=== PATIENT | male | born 1955 | race Caucasian/White ===

== ENCOUNTER 2019-12-20 18:53 | Emergency (ER) | payer MEDICARE, SELFPAY ==
--- NOTE | 2019-12-20 | XR_ITS ---
EXAMINATION: XR ABDOMEN KUB CLINICAL INDICATION: Abdominal discomfort COMPARISON: None TECHNIQUE: AP view of the abdomen. FINDINGS: Gas and stool is present in the right and transverse colon, descending colon and rectosigmoid contains very little gas or stool. No dilated small bowel is seen. No unusual calcifications are present. Mild degenerative changes both hips and lower lumbar spine. IMPRESSION: No convincing evidence of bowel obstruction at this time. Very little stool is seen in descending colon or rectosigmoid but proximal dilatation is not seen.
--- NOTE | 2019-12-20 | ECG_ITS ---
Test Reason : SYNCOPE Blood Pressure : / mmHG Vent. Rate : 076 BPM Atrial Rate : 076 BPM P-R Int : 164 ms QRS Dur : 092 ms QT Int : 348 ms P-R-T Axes : 061 036 045 degrees QTc Int : 391 ms Normal sinus rhythm Incomplete right bundle branch block T wave abnormality, consider anterolateral ischemia Abnormal ECG When compared with ECG of 02-JAN-2019 15:36, Nonspecific T wave abnormality now evident in Inferior leads T wave inversion now evident in Anterior leads Referred By: Roberta Aguilar Electronically Signed By:ENEIDA FINLEY
[2019-12-20 20:30] VITALS: BP 138/54; PULSE 78; RESP 16; TEMP 36.5; O2SAT 98; BMI 26.6
--- NOTE | 2019-12-20 21:50 | PC.NURSE ---
MD REYES AT BEDSIDE FOR PRIMARY EVAL.
--- NOTE | 2019-12-20 21:55 | ED.SYNCOPE ---
HPI - Syncope General Chief Complaint: General Medical Stated Complaint: SYNCOPE/CONSTIPATION Time Seen by Provider: 12/20/19 21:52 Source: regional telecommunications specialist ( Sudanese) Limitations: language barrier History of Present Illness HPI narrative: This is a 64-year-old male who is brought in by his CLIENT DELIVERY SPECIALIST with complaints of 4-5 days of constipation and is reported as a chronic problem due to patient's psychiatric medications. He has been treated for this constipation with a unknown liquid as well as diet modifications. However, this afternoon patient was noted to be straining on the toilet experienced flushing,dizziness, nausea and passed out which occurred for a transient period of time with wake-up. This is not been associated with fevers, chills, difficulty breathing, chest pain /palpitations and is reported to have had 4 episodes of bowel movements since arrival to the emergency department and denies any evidence of blood. Patient does state that his anus hurts due to the constipation. Related Data Allergies Allergy/AdvReac Type Severity Reaction Status Date / Time lisinopril Allergy Unknown Unknown Verified 12/20/19 23:43 Review of Systems Review of Systems: Pertinent positives and negatives as stated in HPI and 10 point review of systems is otherwise negative. PMFSH Past Medical History Attestation statement: The following information was validated with the patient. Medical History Anemia Constipation Hypertension Schizophrenia Thyroglossal duct cyst Vitamin D deficiency Social History Social History Advance Directives: No Advance Directives Information Provided: Yes Physical Exam Vital Signs and I&O and Narrative: Vital Signs and I&O: Vital Signs Temp 97.7 F 12/20/19 20:30 Pulse 76 12/21/19 00:14 Resp 14 12/21/19 00:14 BP 131/82 12/21/19 00:14 Pulse Ox 99 12/21/19 00:14 Intake & Output 12/20/19 12/20/19 12/21/19 06:59 18:59 06:59 Weight 81.647 kg Body Mass Index 26.6 VITAL SIGNS: Reviewed. GENERAL: Well developed, well nourished, in no acute distress. HEAD: Normocephalic/atraumatic, EYES: PERRLA, EOMI intact without pain, no nystagmus/pallor/icterus noted EARS: Ext canals without abnormality, TMs non-bulging and non-erythematous NOSE: Nares patent bilateral OROPHARYNX: no oral lesions noted, posterior pharynx clear and non-erythematous without noted tonsillar enlargement/erythema/exudates NECK: Supple, no adenopathy LUNGS: Normal breath sounds. No adventitious sounds or accessory muscle use. SpO2<> CARDIOVASCULAR: Regular rate and rhythm without noted murmurs, no JVD or lower extremity edema. ABDOMEN: Soft, non-tender, non-distended with bowel sounds. No rigidity. No guarding. No palpable masses or hernias noted MUSCULOSKELETAL: No tenderness, deformities, or effusions noted on gross inspection. EXTREMITIES: No cyanosis, clubbing or edema. SKIN: Inspection of the skin reveals no rashes, ulcerations, jaundice, pallor, or petechiae. NEUROLOGIC: Alert and oriented x 2 as patient is not oriented to year. Strength and sensation to light touch were grossly intact. Cranial nerves 2-12 are grossly intact, with strength and sensation present and absent pronator drift. Course Reevaluation(s) Reevaluation #1: On re-evaluation with discussion of the laboratory results and findings the patient's CLIENT DELIVERY SPECIALIST who is at bedside states that the patient has been having a noted leukocytosis now for the past few months and his primary care provider is aware of this. This seems consistent with findings that are otherwise benign for acute infection. All labs and results discussed with patient and diet aide at bedside and on personal review of all results there are no acute findings that would suggest arrhythmia, anemia, infection as possible etiologies for patient's presenting symptoms. Patient and diet aide were informed that this was most consistent with a vasovagal response. MDM - Syncope MDM Narrative Medical decision making narrative: This is a 64-year-old male with history and clinical presentation most consistent with likely vasovagal syncope, however will evaluate for infectious, arrhythmia, anemia etiologies. Medical Records Attestation: I reviewed the patient's medical records. Lab Data Attestation: I reviewed the patient's lab results. Result diagrams: 12/20/19 22:10 12/20/19 22:10 Labs: Lab Results 12/20/19 12/20/19 Range/Units 22:10 22:10 WBC 14.1 H (4.8-10.8) X10*3/uL RBC 4.36 L (4.60-5.80) X10*6/uL Hgb 13.0 L (14.0-18.0) g/dl Hct 40.5 L (42-52) % MCV 92.9 (80-98) fL MCH 29.8 (27.0-33.0) pg MCHC 32.1 (31.0-36.0) g/dl RDW 13.8 (11.0-16.0) % Plt Count 213 (160-400) X10*3/uL MPV 10.4 (9.4-12.4) fL Immature Gran % (Auto) 0.4 (0.0-0.4) % Neut % (Auto) 92.5 H (45-73) % Lymph % (Auto) 4.0 L (20-40) % [place] % (Auto) 3.0 (2-11) % Eos % (Auto) 0.0 (0-4) % Baso % (Auto) 0.1 (0-2) % Neut # (Auto) 13.1 H (2.0-8.3) X10*3/uL Lymph # (Auto) 0.6 L (1.2-4.9) X10*3/uL [place] # (Auto) 0.4 (0.1-1.2) X10*3/uL Eos # (Auto) 0.0 (0.0-0.4) X10*3/uL Baso # (Auto) 0.0 (0.0-0.2) X10*3/uL Abs Immat Gran (auto) 0.05 H (0.00-0.03) X10*3/uL Absolute Nucleated RBC 0.000 (0.0-0.012) X10*3/uL Nucleated RBC % (auto) 0.0 (0.0-0.2) /100WBC Smear Tech's Comments VERIFIED Sodium 136 (135-145) mmol/L Potassium 4.3 (3.3-5.1) mmol/l Chloride 103 (96-108) mmol/L Carbon Dioxide 23 (22-29) mmol/L Anion Gap 14 (12-20) BUN 19 H (9-16) mg/dL Creatinine 1.21 (0.5-1.4) mg/dL Estim Creat Clear Calc 60.0 Estimated GFR 60 Random Glucose 140 H (60-115) mg/dL Calcium 9.1 (8.4-10.2) mg/dL Total Bilirubin 0.3 (0.0-1.0) mg/dL AST 23 (5-37) U/L ALT 17 (0-40) U/L Alkaline Phosphatase 84 (39-117) U/L Total Protein 7.4 (6.5-8.0) g/dL Albumin 4.4 (3.5-5.0) g/dL ECG Data Attestation: I personally reviewed and interpreted this ECG as follows: Prior ECG tracings: available for review (01/02/2019) Interpretation: NSR, HR-76, non-specific ST-T changes Discharge Plan Discharge Clinical Impression: Vasovagal syncope Patient Disposition: Home, Self-Care Instructions: Syncope (ED) Additional Instructions: resume all home medications as prescribed. Referrals: Ron Snow MD [Primary Care Provider] - 2 days ( Vasovagal syncope secondary to constipation) Print Language: Sudanese
--- NOTE | 2019-12-20 21:59 | PC.NURSE ---
PER PT SOCKET PULLER PT HAS CHRONIC ISSUES WITH CONSTIPATION DUE TO PSYCH MED AND EARLIER TODAY WAS STRAINING ON TOILET WHEN HE BECAME LIGHTHEADED PALE AND PASSED OUT CAME TO QUICKLY AND RETURNED TO BASELINE. WHILE IN WAITING ROOM PT HAD MULTIPLE BOWEL MOVEMENTS WITHOUT ISSUE PER SOCKET PULLER REPORT. PT DENIES PAIN AT THIS TIME, OFFERS NO COMPLAINTS. AWAITING TESTING. PT AND SOCKET PULLER AWARE OF PLAN OF CARE.
[2019-12-20 22:10] VITALS: BP 144/83; PULSE 74; RESP 14; O2SAT 99
[2019-12-20 22:22] LABS: Basophils Percent Auto 0.1 % (0-2); Hematocrit 40.5 % (42-52); Imm Gran Abs Auto 0.05 X10*3/uL (0.00-0.03); Imm Gran Pct Auto 0.4 % (0.0-0.4); Lymphocytes Absolute Auto 0.6 X10*3/uL (1.2-4.9); MANUAL DIFF FLAG SCAN; Mean Corpuscular HGB Conc 32.1 g/dl (31.0-36.0); Mean Corpuscular Hemoglobin 29.8 pg (27.0-33.0); Mean Corpuscular Volume 92.9 fL (80-98); Mean Platelet Volume 10.4 fL (9.4-12.4); Monocytes Absolute Auto 0.4 X10*3/uL (0.1-1.2); Neutrophils Absolute Auto 13.1 X10*3/uL (2.0-8.3); Neutrophils Percent Auto 92.5 % (45-73); Platelet Count 213 X10*3/uL (160-400); Red Blood Count 4.36 X10*6/uL (4.60-5.80); Red Cell Distribution Width 13.8 % (11.0-16.0); SCAN SMEAR FLAG 1; White Blood Count 14.1 X10*3/uL (4.8-10.8)
--- NOTE | 2019-12-20 22:41 | PC.NURSE ---
PT OFF FLOOR FOR KUB.
[2019-12-20 22:45] LABS: SLIDE REVIEW VERIFIED
[2019-12-20 23:02] LABS: Alanine Aminotransferase 17 U/L (0-40); Albumin Level 4.4 g/dL (3.5-5.0); Alkaline Phosphatase 84 U/L (39-117); Anion Gap 14 (12-20); Aspartate Amino Transferase 23 U/L (5-37); Bilirubin Total 0.3 mg/dL (0.0-1.0); Blood Urea Nitrogen 19 mg/dL (9-16); Calcium 9.1 mg/dL (8.4-10.2); Carbon Dioxide 23 mmol/L (22-29); Chloride 103 mmol/L (96-108); Estimated Glomerular Filt Rate 60; Glucose Random 140 mg/dL (60-115); Potassium 4.3 mmol/l (3.3-5.1); Sodium 136 mmol/L (135-145); Total Protein 7.4 g/dL (6.5-8.0)
[2019-12-21 00:14] VITALS: BP 131/82; PULSE 76; RESP 14; O2SAT 99
--- NOTE | 2019-12-21 00:15 | PC.NURSE ---
PT RESTING IN BED EYES CLOSED SKIN PWD RESPIRATIONS EVEN UNLABORED. NO DISTRESS NOTED. AWAITING MD REEVAL. 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
[2019-12-21 01:14] LABS: Glucose Urine UA NEG (NEG); Leukocyte Esterase Urine NEG (NEG); Nitrite Urine NEG (NEG); PH 6.5 (5.0-8.0); Specific Gravity - Urine 1.015 (1.005-1.025); Urine Blood TRACE (NEG); Urine Ketones NEG (NEG); Urine Protein NEG (NEG-TRACE)
[2019-12-21 01:19] LABS: Appearance Urine CLEAR; Color Urine YELLOW
[2019-12-21 01:30] LABS: Mucus Urine 1+ /LPF; RBC Urine 0-2 /HPF (0); WBC Urine 0-2 /HPF (0-4)
== END 2019-12-21 00:59 | disposition home or self-care (01) ==
PROVIDERS: Emergency Provider Student in an Organized Health Care Education/Training Program; PCP Internal Medicine
DX: R55 Syncope and collapse (principal); Z79.899 Other long term (current) drug therapy
CPT/HCPCS: 36415; 74018; 80053; 81001; 81003; 85025; 93005; 93010; 99283; 99284

== ENCOUNTER 2020-01-02 07:35 | Outpatient (REF) | payer MEDICARE, SELFPAY ==
[2020-01-02 09:14] LABS: MANUAL DIFF FLAG NO
[2020-01-02 09:21] LABS: Basophils Percent Auto 0.5 % (0-2); Eosinophils Absolute Auto 0.1 X10*3/uL (0.0-0.4); Eosinophils Percent Auto 0.8 % (0-4); Hemoglobin 12.7 g/dl (14.0-18.0); Imm Gran Abs Auto 0.02 X10*3/uL (0.00-0.03); Imm Gran Pct Auto 0.3 % (0.0-0.4); Lymphocytes Absolute Auto 3.3 X10*3/uL (1.2-4.9); Lymphocytes Percent Auto 54.8 % (20-40); Mean Corpuscular HGB Conc 33.4 g/dl (31.0-36.0); Mean Corpuscular Hemoglobin 30.2 pg (27.0-33.0); Mean Corpuscular Volume 90.5 fL (80-98); Mean Platelet Volume 10.4 fL (9.4-12.4); Monocytes Absolute Auto 0.7 X10*3/uL (0.1-1.2); Monocytes Percent Auto 11.5 % (2-11); Neutrophils Absolute Auto 1.9 X10*3/uL (2.0-8.3); Neutrophils Percent Auto 32.1 % (45-73); Platelet Count 273 X10*3/uL (160-400); Red Cell Distribution Width 13.4 % (11.0-16.0)
== END 2020-01-02 07:36 | disposition home or self-care (01) ==
LOC: HO.LABR 07:35
PROVIDERS: PCP Internal Medicine; Visit Provider Specialist
DX: F20.9 Schizophrenia, unspecified (principal); Z79.899 Other long term (current) drug therapy
CPT/HCPCS: 36415; 85025

== ENCOUNTER 2020-01-28 15:13 | Outpatient (REF) | payer MEDICARE, SELFPAY ==
[2020-01-28 16:16] LABS: MANUAL DIFF FLAG NO
[2020-01-28 16:19] LABS: Basophils Percent Auto 0.6 % (0-2); Eosinophils Percent Auto 0.7 % (0-4); Hematocrit 35.3 % (42-52); Hemoglobin 11.6 g/dl (14.0-18.0); Imm Gran Abs Auto 0.03 X10*3/uL (0.00-0.03); Imm Gran Pct Auto 0.6 % (0.0-0.4); Lymphocytes Absolute Auto 1.8 X10*3/uL (1.2-4.9); Lymphocytes Percent Auto 33.3 % (20-40); Mean Corpuscular HGB Conc 32.9 g/dl (31.0-36.0); Mean Corpuscular Volume 91.2 fL (80-98); Mean Platelet Volume 10.1 fL (9.4-12.4); Monocytes Absolute Auto 0.6 X10*3/uL (0.1-1.2); Monocytes Percent Auto 10.7 % (2-11); Neutrophils Absolute Auto 2.9 X10*3/uL (2.0-8.3); Neutrophils Percent Auto 54.1 % (45-73); Platelet Count 212 X10*3/uL (160-400); Red Blood Count 3.87 X10*6/uL (4.60-5.80); Red Cell Distribution Width 13.7 % (11.0-16.0); White Blood Count 5.4 X10*3/uL (4.8-10.8)
== END 2020-01-28 15:14 | disposition home or self-care (01) ==
LOC: HO.LABR 15:13
PROVIDERS: PCP Internal Medicine; Visit Provider Specialist
DX: F20.9 Schizophrenia, unspecified (principal); Z79.899 Other long term (current) drug therapy
CPT/HCPCS: 36415; 85025

== ENCOUNTER 2020-02-27 09:20 | Outpatient (REF) | payer MEDICARE, SELFPAY ==
[2020-02-27 10:17] LABS: MANUAL DIFF FLAG NO
[2020-02-27 10:19] LABS: Basophils Percent Auto 0.2 % (0-2); Eosinophils Percent Auto 0.2 % (0-4); Hematocrit 38.4 % (42-52); Hemoglobin 12.7 g/dl (14.0-18.0); Imm Gran Abs Auto 0.02 X10*3/uL (0.00-0.03); Imm Gran Pct Auto 0.2 % (0.0-0.4); Lymphocytes Absolute Auto 1.9 X10*3/uL (1.2-4.9); Mean Corpuscular HGB Conc 33.1 g/dl (31.0-36.0); Mean Corpuscular Hemoglobin 30.4 pg (27.0-33.0); Mean Corpuscular Volume 91.9 fL (80-98); Mean Platelet Volume 10.6 fL (9.4-12.4); Monocytes Absolute Auto 0.8 X10*3/uL (0.1-1.2); Monocytes Percent Auto 9.4 % (2-11); Neutrophils Absolute Auto 5.8 X10*3/uL (2.0-8.3); Platelet Count 226 X10*3/uL (160-400); Red Blood Count 4.18 X10*6/uL (4.60-5.80); Red Cell Distribution Width 13.8 % (11.0-16.0); White Blood Count 8.6 X10*3/uL (4.8-10.8)
== END 2020-02-27 09:21 | disposition home or self-care (01) ==
LOC: HO.LABR 09:20
PROVIDERS: PCP Internal Medicine; Visit Provider Specialist
DX: Z79.899 Other long term (current) drug therapy (principal)
CPT/HCPCS: 36415; 85025

== ENCOUNTER 2020-03-07 10:05 | Outpatient (REF) | payer MEDICARE, SELFPAY ==
[2020-03-07 10:24] LABS: Basophils Percent Auto 0.4 % (0-2); Eosinophils Absolute Auto 0.1 X10*3/uL (0.0-0.4); Eosinophils Percent Auto 0.9 % (0-4); Hematocrit 40.1 % (42-52); Hemoglobin 13.2 g/dl (14.0-18.0); Imm Gran Abs Auto 0.01 X10*3/uL (0.00-0.03); Imm Gran Pct Auto 0.2 % (0.0-0.4); Immature Retic Fraction 6.7 % (2.3-13.4); Lymphocytes Absolute Auto 2.1 X10*3/uL (1.2-4.9); Lymphocytes Percent Auto 37.2 % (20-40); MANUAL DIFF FLAG NO; Mean Corpuscular HGB Conc 32.9 g/dl (31.0-36.0); Mean Corpuscular Hemoglobin 30.3 pg (27.0-33.0); Monocytes Absolute Auto 0.6 X10*3/uL (0.1-1.2); Neutrophils Absolute Auto 2.9 X10*3/uL (2.0-8.3); Neutrophils Percent Auto 50.3 % (45-73); Platelet Count 211 X10*3/uL (160-400); Red Blood Count 4.36 X10*6/uL (4.60-5.80); Red Cell Distribution Width 13.7 % (11.0-16.0); Retic HGB Equivalent 34.2 pg (30.0-35.0); Reticulocyte Percent 1.2 % (0.5-1.8); Reticulocytes Absolute 0.051 X10*6/uL (0.026-0.095); White Blood Count 5.7 X10*3/uL (4.8-10.8)
[2020-03-07 10:56] LABS: Alanine Aminotransferase 18 U/L (0-40); Albumin Level 4.4 g/dL (3.5-5.0); Alkaline Phosphatase 79 U/L (39-117); Anion Gap 11 (12-20); Aspartate Amino Transferase 27 U/L (5-37); Bilirubin Total 0.4 mg/dL (0.0-1.0); Blood Urea Nitrogen 13 mg/dL (9-16); Calcium 9.3 mg/dL (8.4-10.2); Carbon Dioxide 29 mmol/L (22-29); Chloride 101 mmol/L (96-108); Cholesterol 164 mg/dL; Estimated Glomerular Filt Rate > 60; Glucose Random 109 mg/dL (60-115); HDL Cholesterol 54 mg/dL; Iron 67 mcg/dL (45-160); LDL Cholesterol Calculated 95 mg/dl; Percent Iron Saturation 20 % (15-50); Potassium 4.4 mmol/l (3.3-5.1); Sodium 137 mmol/L (135-145); Total Iron Binding Capacity 327 mcg/dL (228-428); Total Protein 7.6 g/dL (6.5-8.0); Triglycerides 75 mg/dL; Unsaturated Iron Binding 260 ug/dL
[2020-03-07 11:29] LABS: Ferritin 89 ng/mL (20-250); Free T4 (Free Thyroxine) 1.12 ng/dL (0.71-1.85); Prostate Specific Antigen Scr 5.22 ng/mL (<0.05-4.0); Thyroid Stimulating Hormone 4.05 uIU/mL (0.32-4.0)
[2020-03-09 09:17] LABS: Folate 12.6 ng/mL (> or = 4.0); Vitamin B12 756 pg/mL (200-900)
== END 2020-03-07 10:06 | disposition home or self-care (01) ==
LOC: HO.LAB 10:05
PROVIDERS: PCP Internal Medicine; Visit Provider Internal Medicine
DX: D64.9 Anemia, unspecified (principal); I10 Essential (primary) hypertension; E78.00 Pure hypercholesterolemia, unspecified
CPT/HCPCS: 36415; 80053; 80061; 82607; 82728; 82746; 83540; 84153; 84439; 84443; 85025; 85045

== ENCOUNTER → 2020-03-23 14:12 | Outpatient (BNVA) | payer MEDICARE, SELFPAY | PROVIDERS: PCP Internal Medicine; Visit Provider Internal Medicine Gastroenterology | DX: Z76.89 Persons encountering health services in other specified circumstances (principal) | CPT/HCPCS: Q3014 ==

== ENCOUNTER 2020-03-26 14:47 | Outpatient (REF) | payer MEDICARE, SELFPAY ==
--- NOTE | 2020-03-26 14:54 | US_ITS ---
EXAMINATION: US RETROPERITONEAL COMPLETE (RENAL) CLINICAL INFORMATION: Disorder of kidney and ureter, unspecified. COMPARISON: X-ray abdomen KUB 12/20/2019. CT abdomen and pelvis 08/31/2018. TECHNIQUE: Real-time imaging of the kidneys and bladder. FINDINGS: RIGHT KIDNEY: 12.1 x 5.1 x 4.8 cm (SAG x AP x TRV). The kidney is normal in size, contour, and echogenicity. Renal cortical thickness is normal. No renal calculi or hydronephrosis. There are multiple anechoic cysts. The largest cyst in midpole measures 3.6 x 3.2 x 3.1 cm. There are a few scattered echogenic foci in the cortex. LEFT KIDNEY: 11.3 x 6.1 x 5.7 cm (SAG x AP x TRV). The kidney is normal in size, contour, and echogenicity. Renal cortical thickness is normal. No renal calculi or hydronephrosis. There are multiple anechoic cysts seen. The largest cyst in midpole measures 2.1 x 1.6 x 1.9 cm. There are a few scattered echogenic foci in the cortex. BLADDER: Well distended and normal. Bilateral ureteral jets are demonstrated. Prevoid bladder volume is 864 mL. Postvoid bladder volume is 249 mL. Enlarged prostate, volume 60.1 mL. Suspect a small cyst along the right peripheral lobe. US/US retroperitoneal comp IMPRESSION: Bilateral multiple renal cysts. A few scattered echogenic foci in the cortex, but no echogenic calculi or hydronephrosis. Large postvoid residual bladder volume seen. [id number] prostate enlargement with likely small cyst in the right peripheral lobe.
[2020-03-26 16:44] LABS: Basophils Percent Auto 0.3 % (0-2); Eosinophils Percent Auto 0.1 % (0-4); Hematocrit 36.9 % (42-52); Hemoglobin 12.1 g/dl (14.0-18.0); Imm Gran Abs Auto 0.05 X10*3/uL (0.00-0.03); Imm Gran Pct Auto 0.7 % (0.0-0.4); Lymphocytes Absolute Auto 1.9 X10*3/uL (1.2-4.9); Lymphocytes Percent Auto 26.2 % (20-40); MANUAL DIFF FLAG NO; Mean Corpuscular HGB Conc 32.8 g/dl (31.0-36.0); Mean Corpuscular Volume 91.3 fL (80-98); Mean Platelet Volume 10.7 fL (9.4-12.4); Monocytes Absolute Auto 0.8 X10*3/uL (0.1-1.2); Monocytes Percent Auto 11.3 % (2-11); Neutrophils Absolute Auto 4.5 X10*3/uL (2.0-8.3); Neutrophils Percent Auto 61.4 % (45-73); Platelet Count 220 X10*3/uL (160-400); Red Blood Count 4.04 X10*6/uL (4.60-5.80); Red Cell Distribution Width 13.5 % (11.0-16.0); White Blood Count 7.3 X10*3/uL (4.8-10.8)
== END 2020-03-26 14:48 | disposition home or self-care (01) ==
LOC: HO.US 14:47
PROVIDERS: Absent Provider Specialist; PCP Internal Medicine; Visit Provider Internal Medicine
DX: N28.9 Disorder of kidney and ureter, unspecified (principal)
CPT/HCPCS: 36415; 76770; 85025

== ENCOUNTER → 2020-04-10 09:55 | Outpatient (BNVA) | payer MEDICARE, SELFPAY | PROVIDERS: PCP Internal Medicine; Visit Provider Urology | DX: Z13.89 Encounter for screening for other disorder (principal) | CPT/HCPCS: Q3014 ==

== ENCOUNTER 2020-04-23 16:01 | Outpatient (REF) | payer MEDICARE, SELFPAY ==
[2020-04-23 16:52] LABS: MANUAL DIFF FLAG NO
[2020-04-23 16:54] LABS: Basophils Percent Auto 0.3 % (0-2); Eosinophils Percent Auto 0.2 % (0-4); Hematocrit 37.3 % (42-52); Hemoglobin 12.2 g/dl (14.0-18.0); Imm Gran Abs Auto 0.07 X10*3/uL (0.00-0.03); Imm Gran Pct Auto 0.7 % (0.0-0.4); Lymphocytes Absolute Auto 2.9 X10*3/uL (1.2-4.9); Lymphocytes Percent Auto 29.7 % (20-40); Mean Corpuscular HGB Conc 32.7 g/dl (31.0-36.0); Mean Corpuscular Hemoglobin 29.7 pg (27.0-33.0); Mean Corpuscular Volume 90.8 fL (80-98); Mean Platelet Volume 10.7 fL (9.4-12.4); Monocytes Absolute Auto 0.9 X10*3/uL (0.1-1.2); Monocytes Percent Auto 8.9 % (2-11); Neutrophils Absolute Auto 5.8 X10*3/uL (2.0-8.3); Neutrophils Percent Auto 60.2 % (45-73); Platelet Count 243 X10*3/uL (160-400); Red Blood Count 4.11 X10*6/uL (4.60-5.80); Red Cell Distribution Width 13.5 % (11.0-16.0); White Blood Count 9.6 X10*3/uL (4.8-10.8)
== END 2020-04-23 16:02 | disposition home or self-care (01) ==
LOC: HO.LABR 16:01
PROVIDERS: PCP Internal Medicine; Visit Provider Specialist
DX: Z79.899 Other long term (current) drug therapy (principal)
CPT/HCPCS: 36415; 85025

== ENCOUNTER → 2020-04-30 10:35 | Outpatient (BNVA) | payer MEDICARE, SELFPAY | PROVIDERS: PCP Internal Medicine; Visit Provider Urology | DX: N40.1 Benign prostatic hyperplasia with lower urinary tract symptoms (principal); R33.8 Other retention of urine; R97.20 Elevated prostate specific antigen [PSA] | CPT/HCPCS: 51798; 99212 ==

== ENCOUNTER → 2020-05-08 10:42 | Outpatient (BNVA) | payer MEDICARE, SELFPAY | PROVIDERS: PCP Internal Medicine; Visit Provider Internal Medicine Gastroenterology | CPT/HCPCS: Q3014 ==

== ENCOUNTER 2020-05-09 09:26 | Outpatient (REF) | payer MEDICARE, SELFPAY ==
[2020-05-09 10:10] LABS: MANUAL DIFF FLAG NO
[2020-05-09 10:16] LABS: Basophils Percent Auto 0.2 % (0-2); Eosinophils Absolute Auto 0.1 X10*3/uL (0.0-0.4); Eosinophils Percent Auto 1.1 % (0-4); Hematocrit 37.4 % (42-52); Hemoglobin 12.4 g/dl (14.0-18.0); Imm Gran Abs Auto 0.02 X10*3/uL (0.00-0.03); Imm Gran Pct Auto 0.4 % (0.0-0.4); Lymphocytes Absolute Auto 1.6 X10*3/uL (1.2-4.9); Lymphocytes Percent Auto 34.7 % (20-40); Mean Corpuscular HGB Conc 33.2 g/dl (31.0-36.0); Mean Corpuscular Hemoglobin 29.7 pg (27.0-33.0); Mean Corpuscular Volume 89.7 fL (80-98); Mean Platelet Volume 10.1 fL (9.4-12.4); Monocytes Absolute Auto 0.5 X10*3/uL (0.1-1.2); Neutrophils Absolute Auto 2.4 X10*3/uL (2.0-8.3); Neutrophils Percent Auto 52.6 % (45-73); Platelet Count 229 X10*3/uL (160-400); Red Blood Count 4.17 X10*6/uL (4.60-5.80); Retic HGB Equivalent 33.7 pg (30.0-35.0); Reticulocyte Percent 1.3 % (0.5-1.8); Reticulocytes Absolute 0.053 X10*6/uL (0.026-0.095); White Blood Count 4.6 X10*3/uL (4.8-10.8)
[2020-05-09 10:24] LABS: Estimated Average Glucose 108 mg/dL; Hemoglobin A1c % 5.4 %
[2020-05-09 10:36] LABS: Alanine Aminotransferase 16 U/L (0-40); Albumin Level 4.3 g/dL (3.5-5.0); Alkaline Phosphatase 77 U/L (39-117); Anion Gap 14 (12-20); Aspartate Amino Transferase 23 U/L (5-37); Bilirubin Total 0.6 mg/dL (0.0-1.0); Blood Urea Nitrogen 14 mg/dL (9-16); Carbon Dioxide 26 mmol/L (22-29); Chloride 96 mmol/L (96-108); Estimated Glomerular Filt Rate > 60; Glucose Random 99 mg/dL (60-115); Iron 71 mcg/dL (45-160); Percent Iron Saturation 21 % (15-50); Potassium 4.6 mmol/L (3.3-5.1); Sodium 131 mmol/L (135-145); Total Iron Binding Capacity 337 mcg/dL (228-428); Total Protein 7.4 g/dL (6.5-8.0); Unsaturated Iron Binding 266 ug/dL
[2020-05-09 11:02] LABS: Free T4 (Free Thyroxine) 1.09 ng/dL (0.71-1.85); Prostate Specific Antigen Scr 6.33 ng/mL (<0.05-4.0); Thyroid Stimulating Hormone 3.66 uIU/mL (0.32-4.0)
[2020-05-09 11:26] LABS: Ferritin 68 ng/mL (20-250)
[2020-05-11 04:17] LABS: Folate 15.3 ng/mL (> or = 4.0); Vitamin B12 788 pg/mL (200-900)
== END 2020-05-09 09:27 | disposition home or self-care (01) ==
LOC: HO.LAB 09:26
PROVIDERS: PCP Internal Medicine; Visit Provider Internal Medicine
DX: D64.9 Anemia, unspecified (principal); R73.02 Impaired glucose tolerance (oral); R94.6 Abnormal results of thyroid function studies; R97.20 Elevated prostate specific antigen [PSA]; Z12.5 Encounter for screening for malignant neoplasm of prostate
CPT/HCPCS: 36415; 80053; 82607; 82728; 82746; 83036; 83540; 84153; 84439; 84443; 85025; 85045

== ENCOUNTER 2020-05-23 10:41 | Outpatient (REF) | payer MEDICARE, SELFPAY ==
[2020-05-23 11:58] LABS: Glucose Urine UA NEG (NEG); Leukocyte Esterase Urine NEG (NEG); Nitrite Urine NEG (NEG); PH 6.5 (5.0-8.0); Specific Gravity - Urine 1.015 (1.005-1.025); Urine Blood NEG (NEG); Urine Ketones NEG (NEG); Urine Protein 1+ MG/DL (NEG-TRACE)
[2020-05-23 12:00] LABS: Appearance Urine CLEAR; Color Urine YELLOW
[2020-05-23 12:12] LABS: WBC Urine 0 /HPF (0-4)
== END 2020-05-23 10:42 | disposition home or self-care (01) ==
LOC: HO.LAB 10:41
PROVIDERS: PCP Internal Medicine; Visit Provider Urology
DX: R35.0 Frequency of micturition (principal)
CPT/HCPCS: 81001

== ENCOUNTER 2020-05-23 10:57 | Outpatient (REF) | payer MEDICARE, SELFPAY ==
[2020-05-23 11:41] LABS: MANUAL DIFF FLAG NO
[2020-05-23 11:45] LABS: Basophils Percent Auto 0.5 % (0-2); Eosinophils Absolute Auto 0.1 X10*3/uL (0.0-0.4); Eosinophils Percent Auto 0.9 % (0-4); Hematocrit 38.6 % (42-52); Hemoglobin 12.9 g/dl (14.0-18.0); Imm Gran Abs Auto 0.02 X10*3/uL (0.00-0.03); Imm Gran Pct Auto 0.3 % (0.0-0.4); Lymphocytes Absolute Auto 2.1 X10*3/uL (1.2-4.9); Lymphocytes Percent Auto 36.3 % (20-40); Mean Corpuscular HGB Conc 33.4 g/dl (31.0-36.0); Mean Corpuscular Hemoglobin 30.3 pg (27.0-33.0); Mean Corpuscular Volume 90.6 fL (80-98); Mean Platelet Volume 10.2 fL (9.4-12.4); Monocytes Absolute Auto 0.7 X10*3/uL (0.1-1.2); Monocytes Percent Auto 12.3 % (2-11); Neutrophils Absolute Auto 2.9 X10*3/uL (2.0-8.3); Neutrophils Percent Auto 49.7 % (45-73); Platelet Count 251 X10*3/uL (160-400); Red Blood Count 4.26 X10*6/uL (4.60-5.80); Red Cell Distribution Width 13.2 % (11.0-16.0); White Blood Count 5.8 X10*3/uL (4.8-10.8)
== END 2020-05-23 10:58 | disposition home or self-care (01) ==
LOC: HO.LABR 10:57
PROVIDERS: PCP Internal Medicine; Visit Provider Specialist
DX: R35.0 Frequency of micturition (principal); Z79.899 Other long term (current) drug therapy
CPT/HCPCS: 36415; 85025

== ENCOUNTER → 2020-06-19 09:56 | Outpatient (BNVA) | payer MEDICARE, SELFPAY | PROVIDERS: PCP Internal Medicine; Visit Provider Internal Medicine Gastroenterology | DX: Z13.89 Encounter for screening for other disorder (principal) | CPT/HCPCS: Q3014 ==

== ENCOUNTER 2020-06-20 09:34 | Outpatient (REF) | payer MEDICARE, SELFPAY ==
[2020-06-20 10:09] LABS: MANUAL DIFF FLAG NO
[2020-06-20 10:34] LABS: Basophils Percent Auto 0.3 % (0-2); Eosinophils Absolute Auto 0.1 X10*3/uL (0.0-0.4); Eosinophils Percent Auto 1.2 % (0-4); Hemoglobin 12.2 g/dl (14.0-18.0); Imm Gran Abs Auto 0.02 X10*3/uL (0.00-0.03); Imm Gran Pct Auto 0.2 % (0.0-0.4); Lymphocytes Absolute Auto 2.5 X10*3/uL (1.2-4.9); Lymphocytes Percent Auto 25.2 % (20-40); Mean Corpuscular Hemoglobin 30.1 pg (27.0-33.0); Mean Corpuscular Volume 91.4 fL (80-98); Mean Platelet Volume 10.5 fL (9.4-12.4); Monocytes Absolute Auto 0.9 X10*3/uL (0.1-1.2); Monocytes Percent Auto 8.9 % (2-11); Neutrophils Absolute Auto 6.3 X10*3/uL (2.0-8.3); Neutrophils Percent Auto 64.2 % (45-73); Platelet Count 253 X10*3/uL (160-400); Red Blood Count 4.05 X10*6/uL (4.60-5.80); Red Cell Distribution Width 13.2 % (11.0-16.0); White Blood Count 9.9 X10*3/uL (4.8-10.8)
== END 2020-06-20 09:35 | disposition home or self-care (01) ==
LOC: HO.LABR 09:34
PROVIDERS: PCP Internal Medicine; Visit Provider Specialist
DX: Z79.899 Other long term (current) drug therapy (principal)
CPT/HCPCS: 36415; 85025

== ENCOUNTER 2020-07-21 13:37 | Outpatient (REF) | payer MEDICARE, SELFPAY ==
[2020-07-21 15:11] LABS: MANUAL DIFF FLAG NO
[2020-07-21 15:16] LABS: Basophils Percent Auto 0.5 % (0-2); Eosinophils Absolute Auto 0.1 X10*3/uL (0.0-0.4); Eosinophils Percent Auto 0.6 % (0-4); Hematocrit 38.9 % (42-52); Hemoglobin 12.4 g/dl (14.0-18.0); Imm Gran Abs Auto 0.04 X10*3/uL (0.00-0.03); Imm Gran Pct Auto 0.5 % (0.0-0.4); Lymphocytes Absolute Auto 2.3 X10*3/uL (1.2-4.9); Lymphocytes Percent Auto 28.1 % (20-40); Mean Corpuscular HGB Conc 31.9 g/dl (31.0-36.0); Mean Corpuscular Hemoglobin 29.4 pg (27.0-33.0); Mean Corpuscular Volume 92.2 fL (80-98); Mean Platelet Volume 11.1 fL (9.4-12.4); Monocytes Absolute Auto 0.8 X10*3/uL (0.1-1.2); Monocytes Percent Auto 10.4 % (2-11); Neutrophils Absolute Auto 4.9 X10*3/uL (2.0-8.3); Neutrophils Percent Auto 59.9 % (45-73); Platelet Count 251 X10*3/uL (160-400); Red Blood Count 4.22 X10*6/uL (4.60-5.80); Red Cell Distribution Width 13.5 % (11.0-16.0); White Blood Count 8.1 X10*3/uL (4.8-10.8)
[2020-07-21 15:28] LABS: Alanine Aminotransferase 13 U/L (0-40); Albumin Level 4.5 g/dL (3.5-5.0); Alkaline Phosphatase 91 U/L (39-117); Anion Gap 14 (12-20); Aspartate Amino Transferase 25 U/L (5-37); Bilirubin Total 0.4 mg/dL (0.0-1.0); Blood Urea Nitrogen 19 mg/dL (9-16); Calcium 9.5 mg/dL (8.4-10.2); Carbon Dioxide 26 mmol/L (22-29); Chloride 102 mmol/L (96-108); Estimated Glomerular Filt Rate 56; Glucose Random 125 mg/dL (60-115); Potassium 5.2 mmol/L (3.3-5.1); Sodium 137 mmol/L (135-145); Total Protein 7.7 g/dL (6.5-8.0)
== END 2020-07-21 13:38 | disposition home or self-care (01) ==
LOC: HO.LABR 13:37
PROVIDERS: PCP Internal Medicine; Visit Provider Specialist
DX: E87.1 Hypo-osmolality and hyponatremia (principal); Z79.899 Other long term (current) drug therapy
CPT/HCPCS: 36415; 80053; 85025

== ENCOUNTER 2020-08-21 15:31 | Outpatient (REF) | payer MEDICARE, SELFPAY ==
[2020-08-21 16:32] LABS: Appearance Urine CLEAR; Color Urine YELLOW; Glucose Urine UA NEG (NEG); Leukocyte Esterase Urine NEG (NEG); Nitrite Urine NEG (NEG); Urine Blood NEG (NEG); Urine Ketones NEG (NEG); Urine Protein NEG (NEG-TRACE)
[2020-08-21 16:49] LABS: MANUAL DIFF FLAG NO
[2020-08-21 16:54] LABS: RBC Urine 0-2 /HPF (0); WBC Urine 0 /HPF (0-4)
[2020-08-21 16:55] LABS: Basophils Percent Auto 0.3 % (0-2); Eosinophils Percent Auto 0.4 % (0-4); Hematocrit 35.7 % (42-52); Hemoglobin 11.5 g/dl (14.0-18.0); Imm Gran Abs Auto 0.03 X10*3/uL (0.00-0.03); Imm Gran Pct Auto 0.4 % (0.0-0.4); Lymphocytes Absolute Auto 2.1 X10*3/uL (1.2-4.9); Lymphocytes Percent Auto 29.3 % (20-40); Mean Corpuscular HGB Conc 32.2 g/dl (31.0-36.0); Mean Corpuscular Hemoglobin 29.1 pg (27.0-33.0); Mean Corpuscular Volume 90.4 fL (80-98); Mean Platelet Volume 11.2 fL (9.4-12.4); Monocytes Absolute Auto 0.7 X10*3/uL (0.1-1.2); Monocytes Percent Auto 9.2 % (2-11); Neutrophils Absolute Auto 4.4 X10*3/uL (2.0-8.3); Neutrophils Percent Auto 60.4 % (45-73); Platelet Count 199 X10*3/uL (160-400); Red Blood Count 3.95 X10*6/uL (4.60-5.80); Red Cell Distribution Width 13.7 % (11.0-16.0); White Blood Count 7.3 X10*3/uL (4.8-10.8)
[2020-08-21 17:32] LABS: Prostate Specific Antigen 2.67 ng/mL (<0.05-4.0)
[2020-08-26 20:32] LABS: Clozapine (Clozaril) 295 mcg/L; Norclozapine 118 mcg/L (25-400)
== END 2020-08-21 15:32 | disposition home or self-care (01) ==
LOC: HO.LABR 15:31
PROVIDERS: Absent Provider Specialist; PCP Internal Medicine; Visit Provider Urology
DX: N40.1 Benign prostatic hyperplasia with lower urinary tract symptoms (principal); N13.8 Other obstructive and reflux uropathy; R33.8 Other retention of urine; R35.0 Frequency of micturition; Z51.81 Encounter for therapeutic drug level monitoring; Z79.899 Other long term (current) drug therapy; Z12.5 Encounter for screening for malignant neoplasm of prostate
CPT/HCPCS: 36415; 80159; 81001; 84153; 85025

== ENCOUNTER → 2020-08-28 08:35 | Outpatient (BNVA) | payer MEDICARE, SELFPAY | PROVIDERS: PCP Internal Medicine; Visit Provider Urology | DX: N40.1 Benign prostatic hyperplasia with lower urinary tract symptoms (principal); R33.8 Other retention of urine; N28.9 Disorder of kidney and ureter, unspecified | CPT/HCPCS: 51798; 99212 ==

== ENCOUNTER 2020-09-22 15:35 | Outpatient (REF) | payer MEDICARE, SELFPAY ==
[2020-09-22 16:05] LABS: MANUAL DIFF FLAG NO
[2020-09-22 16:16] LABS: Basophils Percent Auto 0.2 % (0-2); Eosinophils Percent Auto 0.4 % (0-4); Hematocrit 37.8 % (42-52); Hemoglobin 12.5 g/dl (14.0-18.0); Imm Gran Abs Auto 0.02 X10*3/uL (0.00-0.03); Imm Gran Pct Auto 0.2 % (0.0-0.4); Lymphocytes Absolute Auto 2.4 X10*3/uL (1.2-4.9); Lymphocytes Percent Auto 28.7 % (20-40); Mean Corpuscular HGB Conc 33.1 g/dl (31.0-36.0); Mean Corpuscular Hemoglobin 29.8 pg (27.0-33.0); Mean Corpuscular Volume 90.2 fL (80-98); Mean Platelet Volume 11.1 fL (9.4-12.4); Monocytes Absolute Auto 0.7 X10*3/uL (0.1-1.2); Monocytes Percent Auto 8.5 % (2-11); Neutrophils Absolute Auto 5.2 X10*3/uL (2.0-8.3); Platelet Count 208 X10*3/uL (160-400); Red Blood Count 4.19 X10*6/uL (4.60-5.80); Red Cell Distribution Width 13.6 % (11.0-16.0); White Blood Count 8.4 X10*3/uL (4.8-10.8)
== END 2020-09-22 15:36 | disposition home or self-care (01) ==
LOC: HO.LABR 15:35
PROVIDERS: PCP Internal Medicine; Visit Provider Specialist
DX: Z79.899 Other long term (current) drug therapy (principal)
CPT/HCPCS: 36415; 85025

== ENCOUNTER 2020-10-22 10:52 | Outpatient (REF) | payer MEDICARE, SELFPAY ==
[2020-10-22 11:43] LABS: MANUAL DIFF FLAG NO
[2020-10-22 11:49] LABS: Basophils Percent Auto 0.3 % (0-2); Eosinophils Absolute Auto 0.1 X10*3/uL (0.0-0.4); Eosinophils Percent Auto 1.5 % (0-4); Hematocrit 39.1 % (42-52); Hemoglobin 12.8 g/dl (14.0-18.0); Imm Gran Abs Auto 0.03 X10*3/uL (0.00-0.03); Imm Gran Pct Auto 0.5 % (0.0-0.4); Lymphocytes Absolute Auto 3.3 X10*3/uL (1.2-4.9); Lymphocytes Percent Auto 54.3 % (20-40); Mean Corpuscular HGB Conc 32.7 g/dl (31.0-36.0); Mean Corpuscular Volume 91.8 fL (80-98); Mean Platelet Volume 10.5 fL (9.4-12.4); Monocytes Absolute Auto 0.7 X10*3/uL (0.1-1.2); Monocytes Percent Auto 10.6 % (2-11); Neutrophils Percent Auto 32.8 % (45-73); Platelet Count 212 X10*3/uL (160-400); Red Blood Count 4.26 X10*6/uL (4.60-5.80); Red Cell Distribution Width 13.7 % (11.0-16.0); White Blood Count 6.1 X10*3/uL (4.8-10.8)
== END 2020-10-22 10:53 | disposition home or self-care (01) ==
LOC: HO.LABR 10:52
PROVIDERS: PCP Internal Medicine; Visit Provider Specialist
DX: Z79.899 Other long term (current) drug therapy (principal)
CPT/HCPCS: 36415; 85025

== ENCOUNTER 2020-11-20 12:51 | Outpatient (REF) | payer MEDICARE, SELFPAY ==
[2020-11-20 14:10] LABS: MANUAL DIFF FLAG NO
[2020-11-20 14:23] LABS: Basophils Percent Auto 0.4 % (0-2); Eosinophils Absolute Auto 0.1 X10*3/uL (0.0-0.4); Eosinophils Percent Auto 1.3 % (0-4); Hematocrit 36.9 % (42-52); Hemoglobin 12.2 g/dl (14.0-18.0); Imm Gran Abs Auto 0.03 X10*3/uL (0.00-0.03); Imm Gran Pct Auto 0.4 % (0.0-0.4); Lymphocytes Absolute Auto 1.9 X10*3/uL (1.2-4.9); Lymphocytes Percent Auto 27.8 % (20-40); Mean Corpuscular HGB Conc 33.1 g/dl (31.0-36.0); Mean Corpuscular Hemoglobin 30.2 pg (27.0-33.0); Mean Corpuscular Volume 91.3 fL (80-98); Mean Platelet Volume 10.7 fL (9.4-12.4); Monocytes Absolute Auto 0.7 X10*3/uL (0.1-1.2); Monocytes Percent Auto 10.8 % (2-11); Neutrophils Absolute Auto 4.1 X10*3/uL (2.0-8.3); Neutrophils Percent Auto 59.3 % (45-73); Platelet Count 214 X10*3/uL (160-400); Red Blood Count 4.04 X10*6/uL (4.60-5.80); Red Cell Distribution Width 13.6 % (11.0-16.0); White Blood Count 6.9 X10*3/uL (4.8-10.8)
[2020-11-20 14:48] LABS: Alanine Aminotransferase 16 U/L (0-40); Albumin Level 4.4 g/dL (3.5-5.0); Alkaline Phosphatase 86 U/L (39-117); Anion Gap 15 (12-20); Aspartate Amino Transferase 27 U/L (5-37); Bilirubin Total 0.4 mg/dL (0.0-1.0); Blood Urea Nitrogen 13 mg/dL (9-16); Calcium 9.2 mg/dL (8.4-10.2); Carbon Dioxide 23 mmol/L (22-29); Chloride 100 mmol/L (96-108); Cholesterol 163 mg/dL; Estimated Glomerular Filt Rate > 60; Glucose Random 102 mg/dL (60-115); HDL Cholesterol 51 mg/dL; LDL Cholesterol Calculated 90 mg/dl; Potassium 4.5 mmol/L (3.3-5.1); Sodium 133 mmol/L (135-145); Total Protein 7.3 g/dL (6.5-8.0); Triglycerides 111 mg/dL
[2020-11-20 15:09] LABS: Free T4 (Free Thyroxine) 1.09 ng/dL (0.71-1.85); Thyroid Stimulating Hormone 2.68 uIU/mL (0.32-4.0)
[2020-11-20 15:46] LABS: Folate 13.2 ng/mL (> or = 4.0); Vitamin B12 778 pg/mL (200-900)
== END 2020-11-20 12:52 | disposition home or self-care (01) ==
LOC: HO.LAB 12:51
PROVIDERS: Absent Provider Specialist; PCP Internal Medicine; Visit Provider Internal Medicine
DX: I10 Essential (primary) hypertension (principal); E78.00 Pure hypercholesterolemia, unspecified; Z51.81 Encounter for therapeutic drug level monitoring; Z79.01 Long term (current) use of anticoagulants
CPT/HCPCS: 36415; 80053; 80061; 82607; 82746; 84439; 84443; 85025

== ENCOUNTER 2020-12-22 16:27 | Outpatient (REF) | payer MEDICARE, SELFPAY ==
[2020-12-22 16:46] LABS: MANUAL DIFF FLAG NO
[2020-12-22 17:06] LABS: Basophils Percent Auto 0.3 % (0-2); Eosinophils Percent Auto 0.3 % (0-4); Hematocrit 35.2 % (42-52); Hemoglobin 11.7 g/dl (14.0-18.0); Imm Gran Abs Auto 0.03 X10*3/uL (0.00-0.03); Imm Gran Pct Auto 0.4 % (0.0-0.4); Lymphocytes Absolute Auto 2.1 X10*3/uL (1.2-4.9); Lymphocytes Percent Auto 27.8 % (20-40); Mean Corpuscular HGB Conc 33.2 g/dl (31.0-36.0); Mean Corpuscular Hemoglobin 30.2 pg (27.0-33.0); Mean Platelet Volume 10.5 fL (9.4-12.4); Monocytes Absolute Auto 0.6 X10*3/uL (0.1-1.2); Monocytes Percent Auto 8.1 % (2-11); Neutrophils Absolute Auto 4.9 X10*3/uL (2.0-8.3); Neutrophils Percent Auto 63.1 % (45-73); Platelet Count 195 X10*3/uL (160-400); Red Blood Count 3.87 X10*6/uL (4.60-5.80); Red Cell Distribution Width 13.5 % (11.0-16.0); White Blood Count 7.7 X10*3/uL (4.8-10.8)
== END 2020-12-22 16:28 | disposition home or self-care (01) ==
LOC: HO.LABR 16:27
PROVIDERS: PCP Internal Medicine; Visit Provider Specialist
DX: Z51.81 Encounter for therapeutic drug level monitoring (principal); Z79.899 Other long term (current) drug therapy
CPT/HCPCS: 36415; 85025

== ENCOUNTER 2021-01-28 13:47 | Outpatient (REF) | payer MEDICARE, SELFPAY ==
[2021-01-28 14:00] LABS: MANUAL DIFF FLAG NO
[2021-01-28 14:33] LABS: Basophils Percent Auto 0.3 % (0-2); Eosinophils Percent Auto 0.3 % (0-4); Hematocrit 38.6 % (42.0-52.0); Hemoglobin 12.6 g/dl (14.0-18.0); Imm Gran Abs Auto 0.04 X10*3/uL (0.00-0.03); Imm Gran Pct Auto 0.6 % (0.0-0.4); Lymphocytes Absolute Auto 1.7 X10*3/uL (1.2-4.9); Lymphocytes Percent Auto 26.9 % (20-40); Mean Corpuscular HGB Conc 32.6 g/dl (31.0-36.0); Mean Corpuscular Hemoglobin 30.1 pg (27.0-33.0); Mean Corpuscular Volume 92.3 fL (80.0-98.0); Monocytes Absolute Auto 0.7 X10*3/uL (0.1-1.2); Neutrophils Absolute Auto 3.9 x10*3/uL (2.0-8.3); Neutrophils Percent Auto 60.9 % (45-73); Platelet Count 213 X10*3/uL (160-400); Red Blood Count 4.18 X10*6/uL (4.60-5.80); Red Cell Distribution Width 13.5 % (11.0-16.0); White Blood Count 6.5 X10*3/uL (4.8-10.8)
== END 2021-01-28 13:48 | disposition home or self-care (01) ==
LOC: HO.LABR 13:47
PROVIDERS: PCP Internal Medicine; Visit Provider Specialist
DX: Z51.81 Encounter for therapeutic drug level monitoring (principal); Z79.899 Other long term (current) drug therapy
CPT/HCPCS: 36415; 85025

== ENCOUNTER 2021-02-19 15:48 | Outpatient (REF) | payer MEDICARE, SELFPAY ==
[2021-02-19 16:01] LABS: MANUAL DIFF FLAG NO
[2021-02-19 16:25] LABS: Basophils Percent Auto 0.4 % (0-2); Eosinophils Percent Auto 0.1 % (0-4); Hematocrit 38.4 % (42.0-52.0); Hemoglobin 12.5 g/dl (14.0-18.0); Imm Gran Abs Auto 0.05 X10*3/uL (0.00-0.03); Imm Gran Pct Auto 0.6 % (0.0-0.4); Lymphocytes Absolute Auto 1.7 X10*3/uL (1.2-4.9); Lymphocytes Percent Auto 20.2 % (20-40); Mean Corpuscular HGB Conc 32.6 g/dl (31.0-36.0); Mean Corpuscular Hemoglobin 30.3 pg (27.0-33.0); Mean Corpuscular Volume 93.2 fL (80.0-98.0); Mean Platelet Volume 10.9 fL (9.4-12.4); Monocytes Absolute Auto 0.8 X10*3/uL (0.1-1.2); Monocytes Percent Auto 9.6 % (2-11); Neutrophils Absolute Auto 5.7 x10*3/uL (2.0-8.3); Neutrophils Percent Auto 69.1 % (45-73); Platelet Count 228 X10*3/uL (160-400); Red Blood Count 4.12 X10*6/uL (4.60-5.80); Red Cell Distribution Width 13.8 % (11.0-16.0); White Blood Count 8.2 X10*3/uL (4.8-10.8)
== END 2021-02-19 15:49 | disposition home or self-care (01) ==
LOC: HO.LABR 15:48
PROVIDERS: PCP Internal Medicine; Visit Provider Specialist
DX: F20.9 Schizophrenia, unspecified (principal); Z51.81 Encounter for therapeutic drug level monitoring; Z79.899 Other long term (current) drug therapy
CPT/HCPCS: 36415; 85025

== ENCOUNTER 2021-03-22 14:29 | Outpatient (REF) | payer MEDICARE, SELFPAY ==
[2021-03-22 15:13] LABS: Basophils Percent Auto 0.3 % (0-2); Eosinophils Percent Auto 0.5 % (0-4); Hematocrit 39.9 % (42.0-52.0); Hemoglobin 12.8 g/dl (14.0-18.0); Imm Gran Abs Auto 0.02 X10*3/uL (0.00-0.03); Imm Gran Pct Auto 0.3 % (0.0-0.4); Lymphocytes Percent Auto 35.1 % (20-40); MANUAL DIFF FLAG SCAN; Mean Corpuscular HGB Conc 32.1 g/dl (31.0-36.0); Mean Corpuscular Volume 93.4 fL (80.0-98.0); Mean Platelet Volume 11.9 fL (9.4-12.4); Monocytes Absolute Auto 0.5 X10*3/uL (0.1-1.2); Monocytes Percent Auto 8.6 % (2-11); Neutrophils Absolute Auto 3.2 x10*3/uL (2.0-8.3); Neutrophils Percent Auto 55.2 % (45-73); PLT CLUMP 1; Red Blood Count 4.27 X10*6/uL (4.60-5.80); Red Cell Distribution Width 13.7 % (11.0-16.0); SCAN SMEAR FLAG 1
[2021-03-22 15:17] LABS: White Blood Count 5.8 X10*3/uL (4.8-10.8)
[2021-03-22 15:20] LABS: Estimated Average Glucose 114 mg/dL; Hemoglobin A1c % 5.6 %
[2021-03-22 15:27] LABS: Alanine Aminotransferase 31 U/L (0-40); Albumin Level 4.5 g/dL (3.5-5.0); Alkaline Phosphatase 89 U/L (39-117); Anion Gap 13 (12-20); Aspartate Amino Transferase 32 U/L (5-37); Bilirubin Total 0.4 mg/dL (0.0-1.0); Blood Urea Nitrogen 23 mg/dL (9-16); Calcium 9.5 mg/dL (8.4-10.2); Carbon Dioxide 26 mmol/L (22-29); Chloride 101 mmol/L (96-108); Estimated Glomerular Filt Rate 42; Glucose Random 200 mg/dL (60-115); Potassium 4.8 mmol/L (3.3-5.1); Sodium 135 mmol/L (135-145)
[2021-03-22 15:33] LABS: Valproate 87.7 mcg/mL (50.0-100.0)
[2021-03-22 15:43] LABS: SLIDE REVIEW VERIFIED
[2021-03-22 15:48] LABS: Thyroid Stimulating Hormone 3.14 uIU/mL (0.32-4.0)
[2021-03-22 15:49] LABS: Free T4 (Free Thyroxine) 0.91 ng/dL (0.71-1.85)
== END 2021-03-22 14:30 | disposition home or self-care (01) ==
LOC: HO.LABR 14:29
PROVIDERS: Urology; PCP Internal Medicine; Visit Provider Specialist
DX: Z12.5 Encounter for screening for malignant neoplasm of prostate (principal); N40.1 Benign prostatic hyperplasia with lower urinary tract symptoms; N13.8 Other obstructive and reflux uropathy; F20.1 Disorganized schizophrenia; R73.02 Impaired glucose tolerance (oral)
CPT/HCPCS: 36415; 80053; 80164; 83036; 84153; 84439; 84443; 85025

== ENCOUNTER 2021-03-22 14:32 | Outpatient (REF) | payer MEDICARE, SELFPAY | END 2021-03-22 14:33 | disposition home or self-care (01) | LOC: HO.LABR 14:32 | PROVIDERS: PCP Internal Medicine; Visit Provider Specialist | DX: Z13.89 Encounter for screening for other disorder (principal) ==

== ENCOUNTER 2021-03-30 12:53 | Outpatient (REF) | payer MEDICARE, SELFPAY ==
[2021-03-30 13:54] LABS: Appearance Urine CLEAR; Color Urine YELLOW; Glucose Urine UA NEG (NEG); Leukocyte Esterase Urine NEG (NEG); Nitrite Urine NEG (NEG); Urine Blood NEG (NEG); Urine Ketones 5 MG/DL (NEG); Urine Protein 1+ MG/DL (NEG-TRACE)
[2021-03-30 14:26] LABS: Mucus Urine 1+ /LPF; RBC Urine 0 /HPF (0); Squamous Epithelial Cell Urine TRACE /LPF; WBC Urine 0-2 /HPF (0-4)
== END 2021-03-30 12:54 | disposition home or self-care (01) ==
LOC: HO.LAB 12:53
PROVIDERS: Absent Provider Urology; PCP Internal Medicine; Visit Provider Internal Medicine
DX: R35.0 Frequency of micturition (principal)
CPT/HCPCS: 81001; 87086

== ENCOUNTER 2021-04-10 10:18 | Outpatient (REF) | payer MEDICARE, SELFPAY ==
[2021-04-10 11:48] LABS: Alanine Aminotransferase 20 U/L (0-40); Albumin Level 4.3 g/dL (3.5-5.0); Alkaline Phosphatase 85 U/L (39-117); Anion Gap 14 (12-20); Aspartate Amino Transferase 31 U/L (5-37); Bilirubin Total 0.3 mg/dL (0.0-1.0); Blood Urea Nitrogen 17 mg/dL (9-16); Calcium 9.4 mg/dL (8.4-10.2); Carbon Dioxide 26 mmol/L (22-29); Chloride 102 mmol/L (96-108); Estimated Glomerular Filt Rate 59; Glucose Random 105 mg/dL (60-115); Potassium 4.4 mmol/L (3.3-5.1); Sodium 138 mmol/L (135-145); Total Protein 7.6 g/dL (6.5-8.0)
== END 2021-04-10 10:19 | disposition home or self-care (01) ==
LOC: HO.LAB 10:18
PROVIDERS: Visit Provider Internal Medicine
DX: N28.9 Disorder of kidney and ureter, unspecified (principal)
CPT/HCPCS: 36415; 80053

== ENCOUNTER 2021-04-12 12:25 | Outpatient (REF) | payer MEDICARE, SELFPAY ==
[2021-04-12 14:15] LABS: Appearance Urine CLEAR; Color Urine YELLOW; Glucose Urine UA NEG (NEG); Leukocyte Esterase Urine NEG (NEG); Nitrite Urine NEG (NEG); Specific Gravity - Urine 1.015 (1.005-1.025); Urine Blood 3+ (NEG); Urine Ketones NEG (NEG); Urine Protein 1+ MG/DL (NEG-TRACE)
[2021-04-12 15:13] LABS: RBC Urine 0 /HPF (0); WBC Urine 0 /HPF (0-4)
== END 2021-04-12 12:26 | disposition home or self-care (01) ==
LOC: HO.LNP 12:25
PROVIDERS: Visit Provider Urology
DX: R35.0 Frequency of micturition (principal)
CPT/HCPCS: 81001

== ENCOUNTER 2021-04-14 15:25 | Outpatient (REF) | payer MEDICARE, SELFPAY ==
--- NOTE | ~2021-04-14 | US_ITS ---
EXAMINATION: US RETROPERITONEAL LIMITED (RENAL ONLY) CLINICAL INFORMATION: Calculus of kidney. COMPARISON: Ultrasound kidneys and bladder 03/26/2020. X-ray KUB 12/20/2019. CT abdomen and pelvis 08/31/2018. TECHNIQUE: Real-time imaging of the kidneys. FINDINGS: RIGHT KIDNEY: 11.0 x 5.4 x 4.8 cm (SAG x AP x TRV). The kidney is normal in size, contour, and echogenicity. Renal cortical thickness is normal. No hydronephrosis. There are numerous cysts present which appear to be simple cysts with the main ones being: Upper pole 2.4 x 2.3 x 1.7 cm in size. Mid pole 1.1 x 1.1 x 1.1 cm in size. Lower pole 3.3 x 3.2 x 3.3 cm in size. There are numerous cortical echogenic foci without twinkle artifact which may represent cortical nephrocalcinosis. LEFT KIDNEY: 11.0 x 5.1 x 5.3 cm (SAG x AP x TRV). The kidney is normal in size, contour, and echogenicity. Renal cortical thickness is normal. No hydronephrosis. Numerous cysts are present: Within the upper pole there is a 1.4 x 2.2 x 1.6 cm simple appearing cyst. Within the midpole there is a 1.2 x 1.0 x 1.1 cm simple appearing cyst. Within the upper pole there is a 1.8 x 1.5 x 1.8 cm simple appearing cyst. Scattered echogenic foci seen within the cortex consistent with nephrocalcinosis. US/US renal BI IMPRESSION: Bilateral renal cysts. No evidence of obstructive uropathy. Scattered bilateral cortical echogenic foci which may be related to nephrocalcinosis..
== END 2021-04-14 15:26 | disposition home or self-care (01) ==
LOC: HO.US 15:25
PROVIDERS: Visit Provider Urology
DX: N20.0 Calculus of kidney (principal); N28.1 Cyst of kidney, acquired
CPT/HCPCS: 76775

== ENCOUNTER → 2021-04-20 08:13 | Outpatient (BNVA) | payer MEDICARE, SELFPAY | PROVIDERS: Visit Provider Urology | DX: Z13.89 Encounter for screening for other disorder (principal) | CPT/HCPCS: Q3014 ==

== ENCOUNTER 2021-04-27 10:31 | Outpatient (REF) | payer MEDICARE, SELFPAY ==
[2021-04-27 13:55] LABS: MANUAL DIFF FLAG NO
[2021-04-27 14:06] LABS: Basophils Percent Auto 0.4 % (0-2); Eosinophils Absolute Auto 0.1 X10*3/uL (0.0-0.4); Hematocrit 38.6 % (42.0-52.0); Hemoglobin 12.1 g/dl (14.0-18.0); Imm Gran Abs Auto 0.02 X10*3/uL (0.00-0.03); Imm Gran Pct Auto 0.4 % (0.0-0.4); Lymphocytes Absolute Auto 2.1 X10*3/uL (1.2-4.9); Lymphocytes Percent Auto 41.5 % (20-40); Mean Corpuscular HGB Conc 31.3 g/dl (31.0-36.0); Mean Corpuscular Hemoglobin 29.7 pg (27.0-33.0); Mean Corpuscular Volume 94.8 fL (80.0-98.0); Mean Platelet Volume 11.6 fL (9.4-12.4); Monocytes Absolute Auto 0.7 X10*3/uL (0.1-1.2); Monocytes Percent Auto 13.6 % (2-11); Neut%MD 43.1 %; Neutrophils Absolute Auto 2.2 x10*3/uL (2.0-8.3); Neutrophils Percent Auto 43.1 % (45-73); Platelet Count 224 X10*3/uL (160-400); Red Blood Count 4.07 X10*6/uL (4.60-5.80); Red Cell Distribution Width 13.7 % (11.0-16.0); WBCANC 5.1 X10*3/uL; White Blood Count 5.1 X10*3/uL (4.8-10.8)
[2021-04-27 14:20] LABS: Alanine Aminotransferase 27 U/L (0-40); Albumin Level 4.2 g/dL (3.5-5.0); Alkaline Phosphatase 83 U/L (39-117); Aspartate Amino Transferase 28 U/L (5-37); Bilirubin Direct 0.2 mg/dL (0.0-0.5); Bilirubin Total 0.5 mg/dL (0.0-1.0); Total Protein 7.4 g/dL (6.5-8.0)
[2021-04-27 14:28] LABS: Valproate 78.8 mcg/mL (50.0-100.0)
== END 2021-04-27 10:32 | disposition home or self-care (01) ==
LOC: HO.10HDL 10:31
PROVIDERS: Visit Provider Nurse Practitioner
DX: Z79.899 Other long term (current) drug therapy (principal)
CPT/HCPCS: 36415; 80076; 80164; 85025

== ENCOUNTER 2021-05-27 11:31 | Outpatient (REF) | payer MEDICARE, SELFPAY ==
[2021-05-27 11:41] LABS: MANUAL DIFF FLAG NO
[2021-05-27 11:55] LABS: Basophils Percent Auto 0.2 % (0-2); Eosinophils Percent Auto 0.4 % (0-4); Hematocrit 38.5 % (42.0-52.0); Hemoglobin 12.2 g/dl (14.0-18.0); Imm Gran Abs Auto 0.02 X10*3/uL (0.00-0.03); Imm Gran Pct Auto 0.4 % (0.0-0.4); Lymphocytes Percent Auto 39.6 % (20-40); Mean Corpuscular HGB Conc 31.7 g/dl (31.0-36.0); Mean Corpuscular Volume 94.8 fL (80.0-98.0); Mean Platelet Volume 10.6 fL (9.4-12.4); Monocytes Absolute Auto 0.6 X10*3/uL (0.1-1.2); Monocytes Percent Auto 12.7 % (2-11); Neutrophils Absolute Auto 2.4 x10*3/uL (2.0-8.3); Neutrophils Percent Auto 46.7 % (45-73); Platelet Count 207 X10*3/uL (160-400); Red Blood Count 4.06 X10*6/uL (4.60-5.80); Red Cell Distribution Width 13.4 % (11.0-16.0)
== END 2021-05-27 11:32 | disposition home or self-care (01) ==
LOC: HO.LABR 11:31
PROVIDERS: PCP Internal Medicine; Visit Provider Nurse Practitioner
DX: Z51.81 Encounter for therapeutic drug level monitoring (principal); Z79.01 Long term (current) use of anticoagulants
CPT/HCPCS: 36415; 85025; 85048

== ENCOUNTER 2021-06-28 10:57 | Outpatient (REF) | payer OTHER, SELFPAY ==
[2021-06-28 13:22] LABS: MANUAL DIFF FLAG NO
[2021-06-28 13:25] LABS: Basophils Percent Auto 0.3 % (0-2); Eosinophils Absolute Auto 0.1 X10*3/uL (0.0-0.4); Eosinophils Percent Auto 0.8 % (0-4); Hematocrit 36.8 % (42.0-52.0); Hemoglobin 11.8 g/dl (14.0-18.0); Imm Gran Abs Auto 0.04 X10*3/uL (0.00-0.03); Imm Gran Pct Auto 0.6 % (0.0-0.4); Lymphocytes Absolute Auto 2.1 X10*3/uL (1.2-4.9); Lymphocytes Percent Auto 32.1 % (20-40); Mean Corpuscular HGB Conc 32.1 g/dl (31.0-36.0); Mean Corpuscular Hemoglobin 30.3 pg (27.0-33.0); Mean Corpuscular Volume 94.6 fL (80.0-98.0); Mean Platelet Volume 11.6 fL (9.4-12.4); Monocytes Absolute Auto 0.7 X10*3/uL (0.1-1.2); Monocytes Percent Auto 10.9 % (2-11); Neut%MD 55.3 %; Neutrophils Absolute Auto 3.6 x10*3/uL (2.0-8.3); Neutrophils Percent Auto 55.3 % (45-73); Platelet Count 185 X10*3/uL (160-400); Red Blood Count 3.89 X10*6/uL (4.60-5.80); Red Cell Distribution Width 13.4 % (11.0-16.0); WBCANC 6.5 X10*3/uL; White Blood Count 6.5 X10*3/uL (4.8-10.8)
== END 2021-06-28 10:58 | disposition home or self-care (01) ==
LOC: HO.10HDL 10:57
PROVIDERS: Visit Provider Nurse Practitioner
DX: Z79.899 Other long term (current) drug therapy (principal)
CPT/HCPCS: 36415; 85025

== ENCOUNTER 2021-07-27 08:31 | Outpatient (REF) | payer OTHER, SELFPAY ==
[2021-07-27 08:49] LABS: MANUAL DIFF FLAG NO
[2021-07-27 09:49] LABS: Basophils Percent Auto 0.2 % (0-2); Eosinophils Percent Auto 0.5 % (0-4); Hematocrit 38.1 % (42.0-52.0); Hemoglobin 12.3 g/dl (14.0-18.0); Imm Gran Abs Auto 0.04 X10*3/uL (0.00-0.03); Imm Gran Pct Auto 0.7 % (0.0-0.4); Lymphocytes Absolute Auto 2.4 X10*3/uL (1.2-4.9); Mean Corpuscular HGB Conc 32.3 g/dl (31.0-36.0); Mean Corpuscular Hemoglobin 29.8 pg (27.0-33.0); Mean Corpuscular Volume 92.3 fL (80.0-98.0); Mean Platelet Volume 11.2 fL (9.4-12.4); Monocytes Absolute Auto 0.8 X10*3/uL (0.1-1.2); Monocytes Percent Auto 13.3 % (2-11); Neutrophils Absolute Auto 2.6 x10*3/uL (2.0-8.3); Neutrophils Percent Auto 44.3 % (45-73); Platelet Count 208 X10*3/uL (160-400); Red Blood Count 4.13 X10*6/uL (4.60-5.80); Red Cell Distribution Width 13.2 % (11.0-16.0); White Blood Count 5.9 X10*3/uL (4.8-10.8)
== END 2021-07-27 08:32 | disposition home or self-care (01) ==
LOC: HO.LABR 08:31
PROVIDERS: PCP Internal Medicine; Visit Provider Nurse Practitioner
DX: Z51.81 Encounter for therapeutic drug level monitoring (principal); Z79.899 Other long term (current) drug therapy
CPT/HCPCS: 36415; 85025

== ENCOUNTER 2021-08-31 11:26 | Outpatient (REF) | payer OTHER, SELFPAY ==
[2021-08-31 13:46] LABS: MANUAL DIFF FLAG NO
[2021-08-31 13:48] LABS: Basophils Percent Auto 0.2 % (0-2); Eosinophils Percent Auto 0.2 % (0-4); Hematocrit 36.8 % (42.0-52.0); Hemoglobin 12.2 g/dl (14.0-18.0); Imm Gran Abs Auto 0.03 X10*3/uL (0.00-0.03); Imm Gran Pct Auto 0.5 % (0.0-0.4); Lymphocytes Absolute Auto 1.5 X10*3/uL (1.2-4.9); Lymphocytes Percent Auto 24.4 % (20-40); Mean Corpuscular HGB Conc 33.2 g/dl (31.0-36.0); Mean Corpuscular Hemoglobin 30.5 pg (27.0-33.0); Mean Platelet Volume 11.1 fL (9.4-12.4); Monocytes Absolute Auto 0.6 X10*3/uL (0.1-1.2); Monocytes Percent Auto 10.4 % (2-11); Neutrophils Absolute Auto 3.8 x10*3/uL (2.0-8.3); Neutrophils Percent Auto 64.3 % (45-73); Platelet Count 187 X10*3/uL (160-400); Red Cell Distribution Width 13.9 % (11.0-16.0); White Blood Count 5.9 X10*3/uL (4.8-10.8)
== END 2021-08-31 11:27 | disposition home or self-care (01) ==
LOC: HO.10HDLR 11:26
PROVIDERS: Visit Provider Nurse Practitioner
DX: Z79.899 Other long term (current) drug therapy (principal)
CPT/HCPCS: 36415; 85025

== ENCOUNTER 2021-10-06 12:08 | Outpatient (REF) | payer OTHER, SELFPAY ==
[2021-10-06 13:37] LABS: MANUAL DIFF FLAG NO
[2021-10-06 13:40] LABS: Eosinophils Percent Auto 0.2 % (0-4); Hematocrit 36.5 % (42.0-52.0); Hemoglobin 11.7 g/dl (14.0-18.0); Imm Gran Abs Auto 0.01 X10*3/uL (0.00-0.03); Imm Gran Pct Auto 0.2 % (0.0-0.4); Lymphocytes Absolute Auto 1.5 X10*3/uL (1.2-4.9); Lymphocytes Percent Auto 23.7 % (20-40); Mean Corpuscular HGB Conc 32.1 g/dl (31.0-36.0); Mean Corpuscular Hemoglobin 29.8 pg (27.0-33.0); Mean Corpuscular Volume 93.1 fL (80.0-98.0); Mean Platelet Volume 10.9 fL (9.4-12.4); Monocytes Absolute Auto 0.7 X10*3/uL (0.1-1.2); Monocytes Percent Auto 11.4 % (2-11); Neut%MD 64.5 %; Neutrophils Absolute Auto 4.1 x10*3/uL (2.0-8.3); Neutrophils Percent Auto 64.5 % (45-73); Platelet Count 189 X10*3/uL (160-400); Red Blood Count 3.92 X10*6/uL (4.60-5.80); Red Cell Distribution Width 14.2 % (11.0-16.0); WBCANC 6.3 X10*3/uL; White Blood Count 6.3 X10*3/uL (4.8-10.8)
== END 2021-10-06 12:09 | disposition home or self-care (01) ==
LOC: HO.10HDL 12:08
PROVIDERS: Visit Provider Nurse Practitioner
DX: Z79.899 Other long term (current) drug therapy (principal)
CPT/HCPCS: 36415; 85025

== ENCOUNTER 2021-11-02 11:34 | Outpatient (REF) | payer OTHER, SELFPAY ==
[2021-11-02 13:16] LABS: MANUAL DIFF FLAG NO
[2021-11-02 13:33] LABS: Basophils Percent Auto 0.5 % (0-2); Eosinophils Percent Auto 0.7 % (0-4); Hemoglobin 11.9 g/dl (14.0-18.0); Imm Gran Abs Auto 0.02 X10*3/uL (0.00-0.03); Imm Gran Pct Auto 0.3 % (0.0-0.4); Lymphocytes Absolute Auto 2.2 X10*3/uL (1.2-4.9); Lymphocytes Percent Auto 37.9 % (20-40); Mean Corpuscular HGB Conc 32.2 g/dl (31.0-36.0); Mean Corpuscular Hemoglobin 30.3 pg (27.0-33.0); Mean Corpuscular Volume 94.1 fL (80.0-98.0); Mean Platelet Volume 11.6 fL (9.4-12.4); Monocytes Absolute Auto 0.7 X10*3/uL (0.1-1.2); Monocytes Percent Auto 11.5 % (2-11); Neutrophils Absolute Auto 2.9 x10*3/uL (2.0-8.3); Neutrophils Percent Auto 49.1 % (45-73); Platelet Count 217 X10*3/uL (160-400); Red Blood Count 3.93 X10*6/uL (4.60-5.80); Red Cell Distribution Width 13.8 % (11.0-16.0); White Blood Count 5.9 X10*3/uL (4.8-10.8)
== END 2021-11-02 11:35 | disposition home or self-care (01) ==
LOC: HO.10HDL 11:34
PROVIDERS: Visit Provider Nurse Practitioner
DX: Z51.81 Encounter for therapeutic drug level monitoring (principal); Z79.899 Other long term (current) drug therapy
CPT/HCPCS: 36415; 85025

== ENCOUNTER 2021-11-29 11:05 | Outpatient (REF) | payer OTHER, SELFPAY ==
[2021-11-29 13:59] LABS: MANUAL DIFF FLAG NO
[2021-11-29 14:02] LABS: Basophils Percent Auto 0.4 % (0-2); Eosinophils Percent Auto 0.6 % (0-4); Hematocrit 35.5 % (42.0-52.0); Hemoglobin 11.6 g/dl (14.0-18.0); Imm Gran Abs Auto 0.02 X10*3/uL (0.00-0.03); Imm Gran Pct Auto 0.4 % (0.0-0.4); Lymphocytes Absolute Auto 1.9 X10*3/uL (1.2-4.9); Lymphocytes Percent Auto 35.2 % (20-40); Mean Corpuscular HGB Conc 32.7 g/dl (31.0-36.0); Mean Corpuscular Hemoglobin 30.1 pg (27.0-33.0); Mean Corpuscular Volume 92.2 fL (80.0-98.0); Mean Platelet Volume 10.5 fL (9.4-12.4); Monocytes Absolute Auto 0.6 X10*3/uL (0.1-1.2); Monocytes Percent Auto 11.7 % (2-11); Neutrophils Absolute Auto 2.7 x10*3/uL (2.0-8.3); Neutrophils Percent Auto 51.7 % (45-73); Platelet Count 227 X10*3/uL (160-400); Red Blood Count 3.85 X10*6/uL (4.60-5.80); Red Cell Distribution Width 13.2 % (11.0-16.0); White Blood Count 5.3 X10*3/uL (4.8-10.8)
== END 2021-11-29 11:06 | disposition home or self-care (01) ==
LOC: HO.10HDLR 11:05
PROVIDERS: Visit Provider Nurse Practitioner
DX: Z79.899 Other long term (current) drug therapy (principal)
CPT/HCPCS: 36415; 85025

== ENCOUNTER 2021-12-27 09:47 | Outpatient (REF) | payer OTHER, SELFPAY ==
[2021-12-27 10:00] LABS: MANUAL DIFF FLAG NO
[2021-12-27 10:06] LABS: Basophils Percent Auto 0.5 % (0-2); Eosinophils Percent Auto 0.2 % (0-4); Hematocrit 40.3 % (42.0-52.0); Imm Gran Abs Auto 0.02 X10*3/uL (0.00-0.03); Imm Gran Pct Auto 0.3 % (0.0-0.4); Lymphocytes Absolute Auto 1.7 X10*3/uL (1.2-4.9); Lymphocytes Percent Auto 26.2 % (20-40); Mean Corpuscular HGB Conc 32.3 g/dl (31.0-36.0); Mean Corpuscular Hemoglobin 29.5 pg (27.0-33.0); Mean Corpuscular Volume 91.4 fL (80.0-98.0); Mean Platelet Volume 9.9 fL (9.4-12.4); Monocytes Absolute Auto 0.7 X10*3/uL (0.1-1.2); Monocytes Percent Auto 10.3 % (2-11); Neut%MD 62.5 %; Neutrophils Percent Auto 62.5 % (45-73); Platelet Count 242 X10*3/uL (160-400); Red Blood Count 4.41 X10*6/uL (4.60-5.80); Red Cell Distribution Width 12.9 % (11.0-16.0); WBCANC 6.3 X10*3/uL; White Blood Count 6.3 X10*3/uL (4.8-10.8)
== END 2021-12-27 09:48 | disposition home or self-care (01) ==
LOC: HO.LABR 09:47
PROVIDERS: PCP Internal Medicine; Visit Provider Nurse Practitioner
DX: Z79.899 Other long term (current) drug therapy (principal)
CPT/HCPCS: 36415; 85025

== ENCOUNTER 2022-01-26 09:44 | Outpatient (REF) | payer OTHER, SELFPAY ==
[2022-01-26 10:03] LABS: MANUAL DIFF FLAG NO
[2022-01-26 10:59] LABS: Neut%MD 52.8 %; Neutrophils Absolute Auto 2.4 x10*3/uL (2.0-8.3); WBCANC 4.6 X10*3/uL; White Blood Count 4.6 X10*3/uL (4.8-10.8)
[2022-01-26 11:01] LABS: Basophils Percent Auto 0.2 % (0-2); Eosinophils Percent Auto 0.4 % (0-4); Hematocrit 43.5 % (42.0-52.0); Imm Gran Abs Auto 0.01 X10*3/uL (0.00-0.03); Imm Gran Pct Auto 0.2 % (0.0-0.4); Immature Retic Fraction 6.4 % (2.3-13.4); Lymphocytes Absolute Auto 1.7 X10*3/uL (1.2-4.9); Mean Corpuscular HGB Conc 32.2 g/dl (31.0-36.0); Mean Corpuscular Hemoglobin 29.5 pg (27.0-33.0); Mean Corpuscular Volume 91.6 fL (80.0-98.0); Mean Platelet Volume 10.8 fL (9.4-12.4); Monocytes Absolute Auto 0.5 X10*3/uL (0.1-1.2); Monocytes Percent Auto 10.7 % (2-11); Neutrophils Absolute Auto 2.4 x10*3/uL (2.0-8.3); Neutrophils Percent Auto 51.5 % (45-73); Platelet Count 214 X10*3/uL (160-400); Red Blood Count 4.75 X10*6/uL (4.60-5.80); Red Cell Distribution Width 12.8 % (11.0-16.0); Retic HGB Equivalent 35.4 pg (30.0-35.0); Reticulocytes Absolute 0.048 X10*6/uL (0.026-0.095); White Blood Count 4.7 X10*3/uL (4.8-10.8)
[2022-01-26 11:09] LABS: Estimated Average Glucose 114 mg/dL; Hemoglobin A1c % 5.6 %
[2022-01-26 11:26] LABS: Alanine Aminotransferase 17 U/L (0-40); Albumin Level 4.9 g/dL (3.5-5.0); Alkaline Phosphatase 106 U/L (39-117); Anion Gap 18 (12-20); Aspartate Amino Transferase 20 U/L (5-37); Bilirubin Total 0.5 mg/dL (0.0-1.0); Blood Urea Nitrogen 18 mg/dL (9-16); Calcium 9.7 mg/dL (8.4-10.2); Carbon Dioxide 25 mmol/L (22-29); Chloride 102 mmol/L (96-108); Cholesterol 209 mg/dL; Estimated Glomerular Filt Rate 55; Glucose Random 99 mg/dL (60-115); HDL Cholesterol 51 mg/dL; Iron 72 mcg/dL (45-160); LDL Cholesterol Calculated 142 mg/dl; Percent Iron Saturation 18 % (15-50); Potassium 4.8 mmol/L (3.3-5.1); Sodium 140 mmol/L (135-145); Total Iron Binding Capacity 402 mcg/dL (228-428); Total Protein 8.4 g/dL (6.5-8.0); Triglycerides 80 mg/dL; Unsaturated Iron Binding 330 ug/dL
[2022-01-26 11:52] LABS: Ferritin 53 ng/mL (20-250); Free T4 (Free Thyroxine) 1.19 ng/dL (0.71-1.85); Prostate Specific Antigen Scr 1.14 ng/mL (<0.05-4.0); Thyroid Stimulating Hormone 2.81 uIU/mL (0.32-4.0)
[2022-01-26 12:06] LABS: Folate 16.6 ng/mL (> or = 4.0); Vitamin B12 511 pg/mL (200-900)
== END 2022-01-26 09:45 | disposition home or self-care (01) ==
LOC: HO.LAB 09:44
PROVIDERS: Absent Provider Internal Medicine; PCP Internal Medicine; Visit Provider Nurse Practitioner
DX: Z12.5 Encounter for screening for malignant neoplasm of prostate (principal); E78.00 Pure hypercholesterolemia, unspecified; N28.9 Disorder of kidney and ureter, unspecified; R73.02 Impaired glucose tolerance (oral); I10 Essential (primary) hypertension
CPT/HCPCS: 36415; 80053; 80061; 82607; 82728; 82746; 83036; 83540; 84153; 84439; 84443; 85025; 85045; 85048

== ENCOUNTER 2022-02-26 09:20 | Outpatient (REF) | payer OTHER, SELFPAY ==
[2022-02-26 09:32] LABS: MANUAL DIFF FLAG NO
[2022-02-26 10:37] LABS: Basophils Percent Auto 0.3 % (0-2); Eosinophils Percent Auto 0.4 % (0-4); Hematocrit 41.9 % (42.0-52.0); Hemoglobin 13.6 g/dl (14.0-18.0); Imm Gran Abs Auto 0.03 X10*3/uL (0.00-0.03); Imm Gran Pct Auto 0.4 % (0.0-0.4); Lymphocytes Absolute Auto 2.1 X10*3/uL (1.2-4.9); Lymphocytes Percent Auto 27.5 % (20-40); Mean Corpuscular HGB Conc 32.5 g/dl (31.0-36.0); Mean Corpuscular Hemoglobin 29.7 pg (27.0-33.0); Mean Corpuscular Volume 91.5 fL (80.0-98.0); Mean Platelet Volume 11.4 fL (9.4-12.4); Monocytes Absolute Auto 0.9 X10*3/uL (0.1-1.2); Monocytes Percent Auto 11.7 % (2-11); Neutrophils Absolute Auto 4.5 x10*3/uL (2.0-8.3); Neutrophils Percent Auto 59.7 % (45-73); Platelet Count 216 X10*3/uL (160-400); Red Blood Count 4.58 X10*6/uL (4.60-5.80); Red Cell Distribution Width 13.2 % (11.0-16.0); White Blood Count 7.6 X10*3/uL (4.8-10.8)
== END 2022-02-26 09:21 | disposition home or self-care (01) ==
LOC: HO.LABR 09:20
PROVIDERS: Visit Provider Nurse Practitioner
DX: Z51.81 Encounter for therapeutic drug level monitoring (principal)
CPT/HCPCS: 36415; 85025; 85048

== ENCOUNTER 2022-03-22 08:02 | Outpatient (REF) | payer OTHER, SELFPAY ==
--- NOTE | ~2022-03-22 | US_ITS ---
EXAMINATION: US RETROPERITONEAL LIMITED (RENAL ONLY) CLINICAL INFORMATION: Calculus of kidney. COMPARISON: Renal ultrasound 04/14/2021. Ultrasound kidneys and bladder 03/26/2020. X-ray abdomen KUB 12/20/2019. CT abdomen and pelvis 08/31/2018. TECHNIQUE: Real-time imaging of the kidneys. FINDINGS: RIGHT KIDNEY: 11.9 x 4.2 x 4.5 cm (SAG x AP x TRV). The kidney is normal in size, contour, and overall echogenicity. Small punctate calcifications are present in the cortex. No collecting system calculi are seen. Renal cortical thickness is normal. No hydronephrosis. Multiple benign simple cysts are present, the largest 3.9 cm in the right lower pole. No solid renal masses. LEFT KIDNEY: 11.4 x 4.3 x 4.5 cm (SAG x AP x TRV). The kidney is normal in size, contour, and echogenicity. Renal cortical thickness is normal. Small punctate calcifications are present in the cortex but no collecting system calculi are seen. No hydronephrosis. Multiple renal cysts are present, the largest measuring 2.3 cm. US/US renal BI IMPRESSION: 1. Bilateral benign Bosniak class I renal cysts which need no further imaging or followup. 2. Small punctate calcifications are present in the cortex of both kidneys but no collecting system calculi are seen. These findings have been seen in the past and may represent nephrocalcinosis.
[2022-03-22 08:19] LABS: MANUAL DIFF FLAG NO
[2022-03-22 08:33] LABS: Basophils Percent Auto 0.2 % (0-2); Eosinophils Percent Auto 0.5 % (0-4); Hematocrit 40.9 % (42.0-52.0); Hemoglobin 13.3 g/dl (14.0-18.0); Imm Gran Abs Auto 0.01 X10*3/uL (0.00-0.03); Imm Gran Pct Auto 0.2 % (0.0-0.4); Lymphocytes Absolute Auto 2.5 X10*3/uL (1.2-4.9); Lymphocytes Percent Auto 45.1 % (20-40); Mean Corpuscular HGB Conc 32.5 g/dl (31.0-36.0); Mean Corpuscular Hemoglobin 29.1 pg (27.0-33.0); Mean Corpuscular Volume 89.5 fL (80.0-98.0); Mean Platelet Volume 10.2 fL (9.4-12.4); Monocytes Absolute Auto 0.7 X10*3/uL (0.1-1.2); Monocytes Percent Auto 12.3 % (2-11); Neutrophils Absolute Auto 2.4 x10*3/uL (2.0-8.3); Neutrophils Percent Auto 41.7 % (45-73); Platelet Count 228 X10*3/uL (160-400); Red Blood Count 4.57 X10*6/uL (4.60-5.80); Red Cell Distribution Width 13.3 % (11.0-16.0); White Blood Count 5.6 X10*3/uL (4.8-10.8)
[2022-03-22 09:22] LABS: Prostate Specific Antigen 1.34 ng/mL (<0.05-4.0)
== END 2022-03-22 08:03 | disposition home or self-care (01) ==
LOC: HO.US 08:02
PROVIDERS: Absent Provider Nurse Practitioner; PCP Internal Medicine; Visit Provider Urology
DX: N20.0 Calculus of kidney (principal); N28.1 Cyst of kidney, acquired; Z51.81 Encounter for therapeutic drug level monitoring; Z12.5 Encounter for screening for malignant neoplasm of prostate
CPT/HCPCS: 36415; 76775; 84153; 85025

== ENCOUNTER 2022-04-18 14:26 | Outpatient (REF) | payer OTHER, SELFPAY ==
[2022-04-18 14:50] LABS: MANUAL DIFF FLAG NO
[2022-04-18 15:29] LABS: Basophils Percent Auto 0.5 % (0-2); Eosinophils Percent Auto 0.5 % (0-4); Hematocrit 39.5 % (42.0-52.0); Hemoglobin 12.8 g/dl (14.0-18.0); Imm Gran Abs Auto 0.01 X10*3/uL (0.00-0.03); Imm Gran Pct Auto 0.2 % (0.0-0.4); Lymphocytes Percent Auto 32.3 % (20-40); Mean Corpuscular HGB Conc 32.4 g/dl (31.0-36.0); Mean Corpuscular Volume 89.6 fL (80.0-98.0); Mean Platelet Volume 10.7 fL (9.4-12.4); Monocytes Absolute Auto 0.6 X10*3/uL (0.1-1.2); Neut%MD 57.5 %; Neutrophils Absolute Auto 3.6 x10*3/uL (2.0-8.3); Neutrophils Percent Auto 57.5 % (45-73); Platelet Count 235 X10*3/uL (160-400); Red Blood Count 4.41 X10*6/uL (4.60-5.80); Red Cell Distribution Width 13.3 % (11.0-16.0); WBCANC 6.3 X10*3/uL; White Blood Count 6.3 X10*3/uL (4.8-10.8)
== END 2022-04-18 14:27 | disposition home or self-care (01) ==
LOC: HO.LABR 14:26
PROVIDERS: PCP Internal Medicine; Visit Provider Nurse Practitioner
DX: Z79.899 Other long term (current) drug therapy (principal)
CPT/HCPCS: 36415; 85025

== ENCOUNTER → 2022-04-21 09:20 | Outpatient (BNVA) | payer OTHER, SELFPAY | PROVIDERS: PCP Internal Medicine; Visit Provider Urology | DX: N40.1 Benign prostatic hyperplasia with lower urinary tract symptoms (principal); R35.0 Frequency of micturition; R33.8 Other retention of urine | CPT/HCPCS: 99212 ==

== ENCOUNTER 2022-05-24 09:51 | Outpatient (REF) | payer OTHER, SELFPAY ==
[2022-05-24 10:03] LABS: MANUAL DIFF FLAG NO
[2022-05-24 10:51] LABS: Basophils Percent Auto 0.3 % (0-2); Eosinophils Percent Auto 0.5 % (0-4); Hematocrit 39.8 % (42.0-52.0); Hemoglobin 12.9 g/dl (14.0-18.0); Imm Gran Abs Auto 0.01 X10*3/uL (0.00-0.03); Imm Gran Pct Auto 0.2 % (0.0-0.4); Lymphocytes Absolute Auto 1.8 X10*3/uL (1.2-4.9); Lymphocytes Percent Auto 32.2 % (20-40); Mean Corpuscular HGB Conc 32.4 g/dl (31.0-36.0); Mean Corpuscular Hemoglobin 30.1 pg (27.0-33.0); Mean Platelet Volume 10.9 fL (9.4-12.4); Monocytes Absolute Auto 0.6 X10*3/uL (0.1-1.2); Neutrophils Absolute Auto 3.3 x10*3/uL (2.0-8.3); Neutrophils Percent Auto 56.8 % (45-73); Platelet Count 228 X10*3/uL (160-400); Red Blood Count 4.28 X10*6/uL (4.60-5.80); Red Cell Distribution Width 13.4 % (11.0-16.0); White Blood Count 5.7 X10*3/uL (4.8-10.8)
== END 2022-05-24 09:52 | disposition home or self-care (01) ==
LOC: HO.LAB 09:51
PROVIDERS: Visit Provider Nurse Practitioner
DX: Z51.81 Encounter for therapeutic drug level monitoring (principal); Z79.899 Other long term (current) drug therapy
CPT/HCPCS: 36415; 85025

== ENCOUNTER 2022-06-06 07:23 | Outpatient (REF) | payer OTHER, SELFPAY ==
[2022-06-06 07:30] LABS: MANUAL DIFF FLAG NO
[2022-06-06 07:41] LABS: Basophils Percent Auto 0.3 % (0-2); Eosinophils Absolute Auto 0.1 X10*3/uL (0.0-0.4); Eosinophils Percent Auto 0.9 % (0-4); Hematocrit 41.6 % (42.0-52.0); Hemoglobin 13.6 g/dl (14.0-18.0); Imm Gran Abs Auto 0.01 X10*3/uL (0.00-0.03); Imm Gran Pct Auto 0.2 % (0.0-0.4); Immature Retic Fraction 8.3 % (2.3-13.4); Lymphocytes Absolute Auto 2.8 X10*3/uL (1.2-4.9); Lymphocytes Percent Auto 48.1 % (20-40); Mean Corpuscular HGB Conc 32.7 g/dl (31.0-36.0); Mean Corpuscular Hemoglobin 29.7 pg (27.0-33.0); Mean Corpuscular Volume 90.8 fL (80.0-98.0); Mean Platelet Volume 9.9 fL (9.4-12.4); Monocytes Absolute Auto 0.7 X10*3/uL (0.1-1.2); Monocytes Percent Auto 11.2 % (2-11); Neutrophils Absolute Auto 2.3 x10*3/uL (2.0-8.3); Neutrophils Percent Auto 39.3 % (45-73); Platelet Count 231 X10*3/uL (160-400); Red Blood Count 4.58 X10*6/uL (4.60-5.80); Retic HGB Equivalent 34.9 pg (30.0-35.0); Reticulocyte Percent 1.1 % (0.5-1.8); Reticulocytes Absolute 0.052 X10*6/uL (0.026-0.095); White Blood Count 5.8 X10*3/uL (4.8-10.8)
[2022-06-06 08:16] LABS: Alanine Aminotransferase 12 U/L (0-40); Albumin Level 4.2 g/dL (3.5-5.0); Alkaline Phosphatase 95 U/L (39-117); Anion Gap 14 (12-20); Aspartate Amino Transferase 19 U/L (5-37); Bilirubin Total 0.6 mg/dL (0.0-1.0); Blood Urea Nitrogen 13 mg/dL (9-16); Calcium 9.2 mg/dL (8.4-10.2); Carbon Dioxide 29 mmol/L (22-29); Chloride 96 mmol/L (96-108); Cholesterol 175 mg/dL; Estimated Glomerular Filt Rate > 60; Glucose Random 99 mg/dL (60-115); HDL Cholesterol 44 mg/dL; Iron 75 mcg/dL (45-160); LDL Cholesterol Calculated 111 mg/dl; Percent Iron Saturation 24 % (15-50); Potassium 4.9 mmol/L (3.3-5.1); Sodium 134 mmol/L (135-145); Total Iron Binding Capacity 308 mcg/dL (228-428); Total Protein 7.2 g/dL (6.5-8.0); Triglycerides 101 mg/dL; Unsaturated Iron Binding 233 ug/dL
[2022-06-06 08:49] LABS: Ferritin 41 ng/mL (20-250); Folate 8.3 ng/mL (> or = 4.0); Free T4 (Free Thyroxine) 1.03 ng/dL (0.71-1.85); Thyroid Stimulating Hormone 4.76 uIU/mL (0.32-4.0); Vitamin B12 534 pg/mL (200-900)
[2022-06-06 08:58] LABS: Estimated Average Glucose 114 mg/dL; Hemoglobin A1C 139.4999 umol/L; Hemoglobin A1c % 5.6 %
== END 2022-06-06 07:24 | disposition home or self-care (01) ==
LOC: HO.LAB 07:23
PROVIDERS: PCP Internal Medicine; Visit Provider Internal Medicine
DX: E78.00 Pure hypercholesterolemia, unspecified (principal); R73.02 Impaired glucose tolerance (oral); R79.89 Other specified abnormal findings of blood chemistry; D64.9 Anemia, unspecified
CPT/HCPCS: 36415; 80053; 80061; 82607; 82728; 82746; 83036; 83540; 84439; 84443; 85025; 85045

== ENCOUNTER 2022-06-15 11:55 | Outpatient (REF) | payer OTHER, SELFPAY ==
--- NOTE | ~2022-06-15 | XR_ITS ---
EXAMINATION: XR HIP, RIGHT CLINICAL INFORMATION: Right hip pain COMPARISON: None available. TECHNIQUE: Two views of the right hip. Pelvis one view. FINDINGS: Mild right hip arthritis, small lateral acetabular bony spurring. Hip joint space is maintained. No acute fracture or dislocation. Left hip joint space is maintained. SI joints, symphysis pubis intact. No acute pelvic fractures seen. Mild spondylosis in the visualized lower lumbar spine. XR/XR hip RT min 2V IMPRESSION: Minimal right hip joint arthritis. No acute fracture or dislocation.
--- NOTE | ~2022-06-15 | XR_ITS ---
EXAMINATION: XR KNEE, RIGHT CLINICAL INFORMATION: Pain COMPARISON: None available. TECHNIQUE: Two views of the right knee. FINDINGS: No acute fracture or dislocation. Small joint effusion.. Alignment is anatomic. Joint spaces are well maintained. No abnormal soft tissue calcification. XR/XR knee RT 2V IMPRESSION: Small knee joint effusion. No evidence of acute fracture.
== END 2022-06-15 11:56 | disposition home or self-care (01) ==
LOC: HO.XRAY 11:55
PROVIDERS: PCP Internal Medicine; Visit Provider Internal Medicine
DX: M25.551 Pain in right hip (principal); M25.561 Pain in right knee
CPT/HCPCS: 73502; 73560

== ENCOUNTER 2022-06-20 12:57 | Outpatient (REF) | payer OTHER, SELFPAY ==
[2022-06-20 13:12] LABS: MANUAL DIFF FLAG NO
[2022-06-20 13:38] LABS: Basophils Percent Auto 0.5 % (0-2); Eosinophils Percent Auto 0.6 % (0-4); Hematocrit 39.2 % (42.0-52.0); Hemoglobin 12.7 g/dl (14.0-18.0); Imm Gran Abs Auto 0.02 X10*3/uL (0.00-0.03); Imm Gran Pct Auto 0.3 % (0.0-0.4); Lymphocytes Absolute Auto 2.2 X10*3/uL (1.2-4.9); Lymphocytes Percent Auto 33.3 % (20-40); Mean Corpuscular HGB Conc 32.4 g/dl (31.0-36.0); Mean Corpuscular Hemoglobin 29.1 pg (27.0-33.0); Mean Corpuscular Volume 89.9 fL (80.0-98.0); Mean Platelet Volume 10.3 fL (9.4-12.4); Monocytes Absolute Auto 0.7 X10*3/uL (0.1-1.2); Monocytes Percent Auto 10.8 % (2-11); Neutrophils Absolute Auto 3.6 x10*3/uL (2.0-8.3); Neutrophils Percent Auto 54.5 % (45-73); Platelet Count 243 X10*3/uL (160-400); Red Blood Count 4.36 X10*6/uL (4.60-5.80); Red Cell Distribution Width 13.1 % (11.0-16.0); White Blood Count 6.6 X10*3/uL (4.8-10.8)
== END 2022-06-20 12:58 | disposition home or self-care (01) ==
LOC: HO.LAB 12:57
PROVIDERS: PCP Internal Medicine; Visit Provider Nurse Practitioner
DX: Z79.899 Other long term (current) drug therapy (principal)
CPT/HCPCS: 36415; 85025

== ENCOUNTER 2022-07-20 13:22 | Outpatient (REF) | payer OTHER, SELFPAY ==
[2022-07-20 13:43] LABS: MANUAL DIFF FLAG NO
[2022-07-20 14:28] LABS: Basophils Percent Auto 0.4 % (0-2); Eosinophils Percent Auto 0.8 % (0-4); Hematocrit 38.3 % (42.0-52.0); Hemoglobin 12.3 g/dl (14.0-18.0); Imm Gran Abs Auto 0.03 X10*3/uL (0.00-0.03); Imm Gran Pct Auto 0.6 % (0.0-0.4); Lymphocytes Absolute Auto 1.9 X10*3/uL (1.2-4.9); Lymphocytes Percent Auto 39.5 % (20-40); Mean Corpuscular HGB Conc 32.1 g/dl (31.0-36.0); Mean Corpuscular Hemoglobin 29.2 pg (27.0-33.0); Mean Platelet Volume 10.7 fL (9.4-12.4); Monocytes Absolute Auto 0.5 X10*3/uL (0.1-1.2); Monocytes Percent Auto 10.9 % (2-11); Neutrophils Absolute Auto 2.3 x10*3/uL (2.0-8.3); Neutrophils Percent Auto 47.8 % (45-73); Platelet Count 226 X10*3/uL (160-400); Red Blood Count 4.21 X10*6/uL (4.60-5.80); Red Cell Distribution Width 13.2 % (11.0-16.0); White Blood Count 4.9 X10*3/uL (4.8-10.8)
[2022-07-20 14:32] LABS: Alanine Aminotransferase 17 U/L (0-40); Albumin Level 4.2 g/dL (3.5-5.0); Alkaline Phosphatase 100 U/L (39-117); Anion Gap 11 (12-20); Aspartate Amino Transferase 19 U/L (5-37); Bilirubin Total 0.3 mg/dL (0.0-1.0); Blood Urea Nitrogen 14 mg/dL (9-16); Calcium 9.2 mg/dL (8.4-10.2); Carbon Dioxide 25 mmol/L (22-29); Chloride 102 mmol/L (96-108); Estimated Glomerular Filt Rate > 60; Glucose Random 121 mg/dL (60-115); Potassium 4.3 mmol/L (3.3-5.1); Sodium 134 mmol/L (135-145); Total Protein 7.1 g/dL (6.5-8.0)
[2022-07-20 14:50] LABS: Prostate Specific Antigen 0.95 ng/mL (<0.05-4.0); Thyroid Stimulating Hormone 4.24 uIU/mL (0.32-4.0)
[2022-07-20 14:53] LABS: Free T4 (Free Thyroxine) 1.09 ng/dL (0.71-1.85)
== END 2022-07-20 13:23 | disposition home or self-care (01) ==
LOC: HO.LABR 13:22
PROVIDERS: Urology; PCP Internal Medicine; Visit Provider Nurse Practitioner
DX: N40.1 Benign prostatic hyperplasia with lower urinary tract symptoms (principal); R33.8 Other retention of urine; Z51.81 Encounter for therapeutic drug level monitoring; Z12.5 Encounter for screening for malignant neoplasm of prostate; R94.6 Abnormal results of thyroid function studies
CPT/HCPCS: 36415; 80053; 84153; 84439; 84443; 85025

== ENCOUNTER 2022-08-23 10:58 | Outpatient (REF) | payer OTHER, SELFPAY ==
[2022-08-23 11:14] LABS: MANUAL DIFF FLAG NO
[2022-08-23 11:29] LABS: Basophils Percent Auto 0.3 % (0-2); Eosinophils Percent Auto 0.7 % (0-4); Hematocrit 40.5 % (42.0-52.0); Hemoglobin 13.3 g/dl (14.0-18.0); Imm Gran Abs Auto 0.02 X10*3/uL (0.00-0.03); Imm Gran Pct Auto 0.3 % (0.0-0.4); Lymphocytes Absolute Auto 1.8 X10*3/uL (1.2-4.9); Lymphocytes Percent Auto 29.4 % (20-40); Mean Corpuscular HGB Conc 32.8 g/dl (31.0-36.0); Mean Corpuscular Hemoglobin 29.2 pg (27.0-33.0); Mean Corpuscular Volume 88.8 fL (80.0-98.0); Monocytes Absolute Auto 0.6 X10*3/uL (0.1-1.2); Monocytes Percent Auto 9.1 % (2-11); Neutrophils Absolute Auto 3.7 x10*3/uL (2.0-8.3); Neutrophils Percent Auto 60.2 % (45-73); Platelet Count 208 X10*3/uL (160-400); Red Blood Count 4.56 X10*6/uL (4.60-5.80); Red Cell Distribution Width 13.4 % (11.0-16.0); White Blood Count 6.1 X10*3/uL (4.8-10.8)
== END 2022-08-23 10:59 | disposition home or self-care (01) ==
LOC: HO.LAB 10:58
PROVIDERS: Visit Provider Nurse Practitioner
DX: Z79.899 Other long term (current) drug therapy (principal)
CPT/HCPCS: 36415; 85025; 85048

== ENCOUNTER 2022-09-21 10:49 | Outpatient (REF) | payer OTHER, SELFPAY | END 2022-09-21 10:50 | disposition home or self-care (01) | LOC: HO.LABR 10:49 | PROVIDERS: PCP Internal Medicine; Visit Provider Nurse Practitioner | DX: Z51.81 Encounter for therapeutic drug level monitoring (principal) | CPT/HCPCS: 36415; 85025 ==

== ENCOUNTER 2022-10-31 09:19 | Outpatient (REF) | payer OTHER, SELFPAY ==
[2022-10-31 09:30] LABS: MANUAL DIFF FLAG NO
[2022-10-31 10:30] LABS: Basophils Percent Auto 0.4 % (0-2); Eosinophils Absolute Auto 0.1 X10*3/uL (0.0-0.4); Eosinophils Percent Auto 0.9 % (0-4); Hematocrit 41.8 % (42.0-52.0); Hemoglobin 13.2 g/dl (14.0-18.0); Imm Gran Abs Auto 0.02 X10*3/uL (0.00-0.03); Imm Gran Pct Auto 0.4 % (0.0-0.4); Lymphocytes Absolute Auto 2.6 X10*3/uL (1.2-4.9); Lymphocytes Percent Auto 47.1 % (20-40); Mean Corpuscular HGB Conc 31.6 g/dl (31.0-36.0); Mean Corpuscular Hemoglobin 28.9 pg (27.0-33.0); Mean Corpuscular Volume 91.5 fL (80.0-98.0); Mean Platelet Volume 10.7 fL (9.4-12.4); Monocytes Absolute Auto 0.6 X10*3/uL (0.1-1.2); Monocytes Percent Auto 10.3 % (2-11); Neutrophils Absolute Auto 2.3 x10*3/uL (2.0-8.3); Neutrophils Percent Auto 40.9 % (45-73); Platelet Count 234 X10*3/uL (160-400); Red Blood Count 4.57 X10*6/uL (4.60-5.80); Red Cell Distribution Width 13.4 % (11.0-16.0); White Blood Count 5.5 X10*3/uL (4.8-10.8)
== END 2022-10-31 09:20 | disposition home or self-care (01) ==
LOC: HO.LABR 09:19
PROVIDERS: PCP Internal Medicine; Visit Provider Nurse Practitioner
DX: Z79.899 Other long term (current) drug therapy (principal)
CPT/HCPCS: 36415; 85025; 85048

== ENCOUNTER 2022-11-22 10:37 | Outpatient (REF) | payer OTHER, SELFPAY ==
[2022-11-22 11:52] LABS: Neutrophils Absolute Auto 4.3 x10*3/uL (2.0-8.3); White Blood Count 7.4 X10*3/uL (4.8-10.8)
== END 2022-11-22 10:38 | disposition home or self-care (01) ==
LOC: HO.LABR 10:37
PROVIDERS: PCP Internal Medicine; Visit Provider Nurse Practitioner
DX: Z79.899 Other long term (current) drug therapy (principal)
CPT/HCPCS: 36415; 85048

== ENCOUNTER 2022-12-22 10:33 | Outpatient (REF) | payer OTHER, SELFPAY ==
[2022-12-22 10:47] LABS: MANUAL DIFF FLAG NO
[2022-12-22 11:23] LABS: Basophils Percent Auto 0.5 % (0-2); Eosinophils Absolute Auto 0.1 X10*3/uL (0.0-0.4); Eosinophils Percent Auto 1.1 % (0-4); Hemoglobin 12.8 g/dl (14.0-18.0); Imm Gran Abs Auto 0.02 X10*3/uL (0.00-0.03); Imm Gran Pct Auto 0.3 % (0.0-0.4); Lymphocytes Absolute Auto 1.8 X10*3/uL (1.2-4.9); Lymphocytes Percent Auto 28.3 % (20-40); Mean Corpuscular HGB Conc 33.7 g/dl (31.0-36.0); Mean Corpuscular Hemoglobin 29.6 pg (27.0-33.0); Mean Corpuscular Volume 87.8 fL (80.0-98.0); Mean Platelet Volume 10.5 fL (9.4-12.4); Monocytes Absolute Auto 0.7 X10*3/uL (0.1-1.2); Monocytes Percent Auto 10.8 % (2-11); Neutrophils Absolute Auto 3.7 x10*3/uL (2.0-8.3); Platelet Count 213 X10*3/uL (160-400); Red Blood Count 4.33 X10*6/uL (4.60-5.80); Red Cell Distribution Width 13.1 % (11.0-16.0); White Blood Count 6.3 X10*3/uL (4.8-10.8)
== END 2022-12-22 10:34 | disposition home or self-care (01) ==
LOC: HO.LABR 10:33
PROVIDERS: PCP Internal Medicine; Visit Provider Nurse Practitioner
DX: Z79.899 Other long term (current) drug therapy (principal)
CPT/HCPCS: 36415; 85025

== ENCOUNTER 2023-01-23 08:30 | Outpatient (REF) | payer OTHER, SELFPAY ==
[2023-01-23 08:51] LABS: MANUAL DIFF FLAG NO
[2023-01-23 09:11] LABS: Basophils Percent Auto 0.3 % (0-2); Eosinophils Percent Auto 0.7 % (0-4); Hematocrit 40.1 % (42.0-52.0); Hemoglobin 13.2 g/dl (14.0-18.0); Imm Gran Abs Auto 0.02 X10*3/uL (0.00-0.03); Imm Gran Pct Auto 0.3 % (0.0-0.4); Lymphocytes Percent Auto 33.3 % (20-40); Mean Corpuscular HGB Conc 32.9 g/dl (31.0-36.0); Mean Corpuscular Hemoglobin 29.6 pg (27.0-33.0); Mean Corpuscular Volume 89.9 fL (80.0-98.0); Mean Platelet Volume 10.3 fL (9.4-12.4); Monocytes Absolute Auto 0.7 X10*3/uL (0.1-1.2); Monocytes Percent Auto 11.9 % (2-11); Neutrophils Absolute Auto 3.2 x10*3/uL (2.0-8.3); Neutrophils Percent Auto 53.5 % (45-73); Platelet Count 210 X10*3/uL (160-400); Red Blood Count 4.46 X10*6/uL (4.60-5.80); Red Cell Distribution Width 13.3 % (11.0-16.0); White Blood Count 6.1 X10*3/uL (4.8-10.8)
== END 2023-01-23 08:31 | disposition home or self-care (01) ==
LOC: HO.LABR 08:30
PROVIDERS: PCP Internal Medicine; Visit Provider Nurse Practitioner
DX: Z51.81 Encounter for therapeutic drug level monitoring (principal); Z79.899 Other long term (current) drug therapy
CPT/HCPCS: 36415; 85025

== ENCOUNTER 2023-01-27 13:23 | Outpatient (AMB) | payer OTHER, SELFPAY ==
--- NOTE | 2023-01-27 13:41 | AM.OFFVISNUR ---
Intake Intake Visit Reasons: flu shot Allergies No Known Allergies Allergy (Verified 09/16/22 11:03) Office Procedures Flu Questionnaire Does the patient have a severe egg allergy?: No Does the patient have severe life threatening allergies?: No Does the patient have a fever or illness today?: No Has the patient ever had Guillain-[place] Syndrome?: No Has the patient ever had any past reaction to a flu shot?: No Immunizations flu vacc [id number] 6mos up(PF) 60 mcg(15 mcgx4)/0.5 mL IM syringe Performing Provider: Ron Snow MD Performing Location: [facility] Administered by: Ayesha Madden RN on 01/27/23 13:48 Dose Route Admin Location Dispensed Lot Number Expiration Date NDC Senior Product Analyst 0.5 mL IM Left Deltoid 0.5 mL [id number] 09/17/23 60386-359-17 Helios VIS Given Date VIS Provided VIS Publication Date 01/27/23 Single Vaccine 20 Eligibility Eligibility Date Funding Source Not [facility] Eligible 01/27/23 Private Coding Assessment & Plan Assessment & Plan Orders: Orders Influenza [id number] Immunization Today Z23 - Encounter for immunization
== END 2023-01-27 13:49 | disposition home or self-care (01) ==
PROVIDERS: PCP Internal Medicine; Visit Provider Internal Medicine
DX: Z23 Encounter for immunization (principal)
CPT/HCPCS: 90471; 90686

== ENCOUNTER 2023-01-31 08:05 | Outpatient (AMB) | payer OTHER, SELFPAY ==
[2023-01-31 08:41] VITALS: BP 112/74; PULSE 80; TEMP 36.7; O2SAT 98; BMI 27.5
--- NOTE | 2023-01-31 08:41 | AM.OFFWIN_ITS ---
Intake Vital Signs 3 01/31/23 08:41 Height 5 ft 9 in Weight 186 lb BMI 27.5 BP 112/74 Blood Pressure Location Lt brachial Position Sitting Pulse 80 Pulse Source Pulse Oximeter Temp 98.0 F Temp Source Temporal Artery Scan Pulse Oximetry (%) 98 Oxygen Delivery Method Room Air Intake Visit Reasons: EST/rash on legs and back (lobby) Intake Note: pt is here for c.o rash on upper back and lower legs Patient Tobacco Use Status: Never used Tobacco Allergies No Known Allergies Allergy (Verified 09/16/22 11:03) Medication List - Last Reconciled 01/31/23 by Ulysses Umanzor MD [adult pullups As directed] amlodipine 10 mg PO DAILY 90 days benztropine 1 mg PO DAILY blood pressure monitor (Blood Pressure Kit) As directed clonazepam 0.5 mg PO DAILY clozapine 200 mg PO BEDTIME deutetrabenazine (Austedo) 6 mg PO DAILY diclofenac sodium 1% (Arthritis Pain (diclofenac)) 4 grams topical QID disposable gloves As directed divalproex (Depakote) 1,000 mg PO .QD divalproex ER 500 mg PO DAILY finasteride 5 mg PO DAILY 90 days fluphenazine decanoate 25 mg IM Q3W linaclotide (Linzess) 145 mcg PO DAILY psyllium husk (Metamucil) 1 tbsp PO DAILY sennosides-docusate sodium 8.6-50 mg (Senna with Docusate Sodium) 2 tab-caps (2 x 8.6-50 mg) PO BEDTIME tamsulosin 0.8 mg (2 x 0.4 mg) PO BEDTIME 90 days Do you need a note to return to daycare/school/sports/work: Yes HPI EST/rash on legs and back (lobby) 2 HPI0 Details Patient is 67-year-old gentleman came in today to be evaluated for rash that he has developed left lower leg For the past several days, patient says that the rash is pruritic He has been using Aveeno and use ProAir in ointment on the rash without any relief PFSH Medical History Renal cyst Overweight (BMI 25.0-29.9) Hypertension Vitamin D deficiency Anemia Schizophrenia Thyroglossal duct cyst Constipation Surgical History History of colonoscopy History of drainage of abscess History of prostate surgery Family History Father History of heart attack Hypertension CVD (cardiovascular disease) Mother History of mental problems Hypertension Paternal Grandfather Prostate cancer Maternal Grandmother No problems noted. Maternal Grandfather No problems noted. Paternal Grandmother No problems noted. Social History Household Members: Spouse Housing: Apartment Alcohol intake: current Alcohol intake frequency: does not drink Patient Tobacco Use Status: Never used Tobacco Years Smoked: stopped 2004 e-Cigarette/Vaping Use: Never Used Second Hand Smoke Exposure: No service: No Current occupational status: disabled Cognitive needs: Yes Hearing needs: No Vision needs: Yes Review of Systems Const All systems reviewed & are unremarkable except as noted in HPI and below Physical Exam Vital Signs: Last Vital Signs Temp 98.0 F 01/31/23 08:41 Pulse 80 01/31/23 08:41 BP 112/74 01/31/23 08:41 Pulse Ox 98 01/31/23 08:41 Oxygen Delivery Method Room Air 01/31/23 08:41 BMI result Body Mass Index 27.5 Const General: no acute distress Orientation/consciousness: patient oriented x3 Eyes General: appearance normal, both eyes and all related structures Resp Effort & Inspection: normal respiratory effort and able to speak in complete sentences Auscultation: clear to auscultation bilaterally Skin Full body images: 2 1. About 1 in x 1 in patch off erythmatous rash without any signs of infection or inflammation Neuro General: patient oriented x3 Psych Mental Status: mental status grossly normal Assessment & Plan Assessment & Plan (1) Rash: Code(s): R21 - Rash and other nonspecific skin eruption Plan Patient is 67-year-old gentleman came in today to be evaluated for rash that he has developed left lower leg For the past several days, patient says that the rash is pruritic He has been using Aveeno and use ProAir in ointment on the rash without any relief I am treating him with clobetasol cream topical Medications: New 2 clobetasol 0.05% 1 appl topical BID 60 grams 0RF 2 weeks Coding Level of Care Code Est Pt Level 3 (69516) Diagnoses Rash R21
== END 2023-01-31 09:07 | disposition home or self-care (01) ==
PROVIDERS: PCP Internal Medicine; Visit Provider Internal Medicine
DX: R21 Rash and other nonspecific skin eruption (principal)
CPT/HCPCS: 99213

== ENCOUNTER 2023-02-13 07:44 | Outpatient (REF) | payer OTHER, SELFPAY ==
[2023-02-13 08:15] LABS: Neut%MD 47.8 %; Neutrophils Absolute Auto 2.7 x10*3/uL (2.0-8.3); WBCANC 5.6 X10*3/uL; White Blood Count 5.6 X10*3/uL (4.8-10.8)
== END 2023-02-13 07:45 | disposition home or self-care (01) ==
LOC: HO.LABR 07:44
PROVIDERS: PCP Internal Medicine; Visit Provider Nurse Practitioner
DX: Z51.81 Encounter for therapeutic drug level monitoring (principal)
CPT/HCPCS: 36415; 85048

== ENCOUNTER 2023-03-22 16:03 | Outpatient (REF) | payer OTHER, SELFPAY | END 2023-03-22 16:04 | disposition home or self-care (01) | LOC: HO.LABR 16:03 | PROVIDERS: PCP Internal Medicine; Visit Provider Nurse Practitioner | DX: Z51.81 Encounter for therapeutic drug level monitoring (principal); Z79.899 Other long term (current) drug therapy | CPT/HCPCS: 36415; 85048 ==

== ENCOUNTER 2023-04-14 09:06 | Outpatient (REF) | payer OTHER, SELFPAY ==
[2023-04-14 10:53] LABS: MANUAL DIFF FLAG NO
[2023-04-14 11:08] LABS: Basophils Percent Auto 0.2 % (0-2); Eosinophils Percent Auto 0.6 % (0-4); Hematocrit 40.4 % (42.0-52.0); Hemoglobin 13.1 g/dl (14.0-18.0); Imm Gran Abs Auto 0.02 X10*3/uL (0.00-0.03); Imm Gran Pct Auto 0.4 % (0.0-0.4); Immature Retic Fraction 9.9 % (2.3-13.4); Lymphocytes Absolute Auto 1.8 X10*3/uL (1.2-4.9); Lymphocytes Percent Auto 34.7 % (20-40); Mean Corpuscular HGB Conc 32.4 g/dl (31.0-36.0); Mean Corpuscular Hemoglobin 29.5 pg (27.0-33.0); Mean Platelet Volume 11.3 fL (9.4-12.4); Monocytes Absolute Auto 0.5 X10*3/uL (0.1-1.2); Monocytes Percent Auto 9.9 % (2-11); Neutrophils Absolute Auto 2.7 x10*3/uL (2.0-8.3); Neutrophils Percent Auto 54.2 % (45-73); Platelet Count 208 X10*3/uL (160-400); Red Blood Count 4.44 X10*6/uL (4.60-5.80); Red Cell Distribution Width 13.1 % (11.0-16.0); Reticulocyte Percent 1.2 % (0.5-1.8); Reticulocytes Absolute 0.055 X10*6/uL (0.026-0.095); White Blood Count 5.1 X10*3/uL (4.8-10.8)
[2023-04-14 11:24] LABS: Alanine Aminotransferase 17 U/L (0-40); Albumin Level 4.2 g/dL (3.5-5.0); Alkaline Phosphatase 89 U/L (39-117); Anion Gap 13 (12-20); Aspartate Amino Transferase 20 U/L (5-37); Bilirubin Total 0.5 mg/dL (0.0-1.0); Blood Urea Nitrogen 16 mg/dL (9-16); Calcium 9.2 mg/dL (8.4-10.2); Carbon Dioxide 27 mmol/L (22-29); Chloride 103 mmol/L (96-108); Cholesterol 159 mg/dL (<200); Estimated Glomerular Filt Rate > 60; Glucose Random 92 mg/dL (60-115); HDL Cholesterol 46 mg/dL (>40); Iron 75 mcg/dL (45-160); LDL Cholesterol Calculated 100 mg/dL (<100); Percent Iron Saturation 25 % (15-50); Potassium 4.3 mmol/L (3.3-5.1); Sodium 139 mmol/L (135-145); Total Iron Binding Capacity 303 mcg/dL (228-428); Total Protein 7.6 g/dL (6.5-8.0); Triglycerides 69 mg/dL (<150); Unsaturated Iron Binding 228 ug/dL
[2023-04-14 11:29] LABS: Appearance Urine Clear; Color Urine Yellow; Glucose Urine UA Negative (Negative); Leukocyte Esterase Urine Negative (Negative); Nitrite Urine Negative (Negative); PH 7.5 (5.0-9.0); Urine Blood Negative (Negative); Urine Ketones Negative (Negative); Urine Protein Negative (Neg-Trace)
[2023-04-14 11:36] LABS: Bacteria Urine None Seen (None Seen); Hyaline Casts Urine 0-2 /LPF (0-2); RBC Urine 0-2 /HPF (0-2); Squamous Epithelial Cell Urine 0-2 /HPF (0-2); WBC Urine 0-5 /HPF (0-5)
[2023-04-14 11:41] LABS: Ferritin 50 ng/mL (20-250); Free T4 (Free Thyroxine) 1.07 ng/dL (0.71-1.85); Thyroid Stimulating Hormone 3.45 uIU/mL (0.32-4.0)
[2023-04-14 12:10] LABS: Folate 10.2 ng/mL (> or = 4.0); Vitamin B12 463 pg/mL (200-900)
== END 2023-04-14 09:07 | disposition home or self-care (01) ==
LOC: HO.10HDL 09:06
PROVIDERS: Visit Provider Internal Medicine
DX: N28.9 Disorder of kidney and ureter, unspecified (principal); E78.00 Pure hypercholesterolemia, unspecified; Z12.5 Encounter for screening for malignant neoplasm of prostate
CPT/HCPCS: 36415; 80053; 80061; 81001; 82607; 82728; 82746; 83540; 84153; 84439; 84443; 85025; 85045

== ENCOUNTER 2023-04-20 08:39 | Outpatient (REF) | payer OTHER, SELFPAY ==
[2023-04-20 09:59] LABS: MANUAL DIFF FLAG NO
[2023-04-20 10:40] LABS: Basophils Percent Auto 0.5 % (0-2); Eosinophils Percent Auto 0.6 % (0-4); Hematocrit 39.1 % (42.0-52.0); Hemoglobin 12.9 g/dl (14.0-18.0); Imm Gran Abs Auto 0.03 X10*3/uL (0.00-0.03); Imm Gran Pct Auto 0.5 % (0.0-0.4); Lymphocytes Absolute Auto 1.8 X10*3/uL (1.2-4.9); Lymphocytes Percent Auto 26.7 % (20-40); Mean Corpuscular Volume 90.9 fL (80.0-98.0); Monocytes Absolute Auto 0.6 X10*3/uL (0.1-1.2); Monocytes Percent Auto 8.7 % (2-11); Neutrophils Absolute Auto 4.2 x10*3/uL (2.0-8.3); Platelet Count 224 X10*3/uL (160-400); Red Cell Distribution Width 13.2 % (11.0-16.0); White Blood Count 6.6 X10*3/uL (4.8-10.8)
== END 2023-04-20 08:40 | disposition home or self-care (01) ==
LOC: HO.LABR 08:39
PROVIDERS: Visit Provider Nurse Practitioner
DX: N40.1 Benign prostatic hyperplasia with lower urinary tract symptoms (principal); N13.8 Other obstructive and reflux uropathy; R33.8 Other retention of urine; Z51.81 Encounter for therapeutic drug level monitoring; Z79.899 Other long term (current) drug therapy
CPT/HCPCS: 36415; 51798; 85025; 99212

== ENCOUNTER 2023-04-20 08:39 | Outpatient (AMB) | payer OTHER, SELFPAY ==
--- NOTE | 2023-04-20 08:48 | A.OFFVIS_ITS ---
Intake Intake Visit Reasons: 1Y PVR/PSA(SET) Intake Note: Patient is Present for Follow Up PSA/PVR Urology Medication: Finasteride, Tamsulosin Antibiotic Allergies: None Blood Thinners: None PVR: 0 Allergies No Known Allergies Allergy (Verified 04/20/23 08:49) Medication List - Last Reconciled 04/20/23 by Tyrese Forman MD [adult pullups As directed] amlodipine 10 mg PO DAILY 90 days benztropine 1 mg PO DAILY blood pressure monitor (Blood Pressure Kit) As directed clobetasol 0.05% 1 appl topical BID 2 weeks clonazepam 0.5 mg PO DAILY clozapine 200 mg PO BEDTIME deutetrabenazine (Austedo) 6 mg PO DAILY diclofenac sodium 1% (Arthritis Pain (diclofenac)) 4 grams topical QID disposable gloves As directed divalproex (Depakote) 1,000 mg PO .QD divalproex ER 500 mg PO DAILY finasteride 5 mg PO DAILY 90 days fluphenazine decanoate 25 mg IM Q3W linaclotide (Linzess) 145 mcg PO DAILY psyllium husk (Metamucil) 1 tbsp PO DAILY sennosides-docusate sodium 8.6-50 mg (Senna with Docusate Sodium) 2 tab-caps (2 x 8.6-50 mg) PO BEDTIME tamsulosin 0.8 mg (2 x 0.4 mg) PO BEDTIME 90 days HPI HPI Comments History of Present Illness Details Antonio is a very pleasant male. 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 Low PSA maintained Effective voiding - PVR 0cc Stable renal cyst Lower urinary tract symptoms Ongoing Postvoid residual down from 250 to 40 5 cc Therapy - combination therapy finasteride and Flomax 0.8 Laboratories - 02/06 PSA 5.2, 05/10 6.3, 09/07 2.6, 04/10 1.4, 04/11 1.3, 04/12 1.1 Renal cyst Imaging - 04/09 RENAL ULTRASOUND BILATERAL CYSTS MAXIMUM 3.6 CM RIGHT, 2.8 CM LEFT - 04/10 renal ultrasound numerous bilater al cysts unchanged in size [facility] [place] Medical History Renal cyst Overweight (BMI 25.0-29.9) Hypertension Vitamin D deficiency Anemia Schizophrenia Thyroglossal duct cyst Constipation Surgical History History of colonoscopy History of drainage of abscess History of prostate surgery Family History Father History of heart attack Hypertension CVD (cardiovascular disease) Mother History of mental problems Hypertension Paternal Grandfather Prostate cancer Maternal Grandmother No problems noted. Maternal Grandfather No problems noted. Paternal Grandmother No problems noted. Social History Household Members: Spouse Housing: Apartment Alcohol intake: current Alcohol intake frequency: does not drink Patient Tobacco Use Status: Never used Tobacco Years Smoked: stopped 2004 e-Cigarette/Vaping Use: Never Used Second Hand Smoke Exposure: No service: No Current occupational status: disabled Cognitive needs: Yes Hearing needs: No Vision needs: Yes Review of Systems Const Denies chills and Denies fever(s) Card Reports no additional complaints and Denies syncope Resp Denies cough GI Denies abdominal pain and Denies heartburn Reports as per HPI and Denies change in libido Neuro Denies syncope Psych Denies change in libido Endo Denies change in libido Physical Exam Const General: cooperative, healthy appearing, comfortable and no acute distress Orientation/consciousness: patient oriented x3 HEENT Face and sinus: Yes normal facial exam Mouth: moist mucous membranes Neck Neck: Yes normal visual inspection, Yes full ROM and Yes trachea midline Chest Chest palpation & inspection: normal inspection of the chest Resp Effort & Inspection: normal respiratory effort, able to speak in complete sentences and no respiratory distress GI Inspection: Yes normal to inspection Back/Spine/Pelvis Cervical Spine: normal cervical lordosis Thoracic/Lumbar Spine: thoracic and lumbar spine normal to inspection Skin General skin exam: no rashes or lesions noted Neuro General: patient oriented x3, gait normal, tone normal and moves all extremities Extrem General: Yes normal to inspection and Yes capillary refill normal Office Procedures Post Void Residual Post Residual Void Post Void Residual (PVR): 0 [id number] Void Residual by ultrasound Assessment & Plan Assessment & Plan (1) BPH (benign prostatic hyperplasia): Code(s): N40.0 - Benign prostatic hyperplasia without lower urinary tract symptoms Qualifiers: Lower urinary tract symptom presence: symptoms present Lower urinary tract symptom detail: urinary retention Qualified Code(s): N40.1 - Benign prost atic hyperplasia with lower urinary tract symptoms; R33.8 - Other retention of urine (2) Frequency of micturition: Code(s): R35.0 - Frequency of micturition Plan Twelve month follow-up PSA and PVR Orders: Orders AMB Post Void Residual by ultrasound Today N40.1 - Benign prostatic hyperplasia with lower urinary tract symptoms, R33.8 - Other retention of urine Prostate Specific Antigen 364 Days N40.1 - Benign prostatic hyperplasia with lower urinary tract symptoms, R33.8 - Other retention of urine Medications: Refilled finasteride 5 mg PO DAILY 90 tabs 3RF 90 days N40.1 - Benign prostatic hyperplasia with lower urinary tract symptoms, R33.8 - Other retention of urine, R33.9 - Retention of urine, unspecified, R97.20 - Elevated prostate specific antigen [PSA] tamsulosin 0.8 mg (2 x 0.4 mg) PO BEDTIME 180 caps 3RF 90 days N40.1 - Benign prostatic hyperplasia with lower urinary tract symptoms, R33.8 - Other retention of urine Patient Instructions: Imaging studies, laboratory and physical exam results were discussed and reviewed in detail. No major barriers to patient understanding were identified. An opportunity to ask questions regarding the treatment plan was provided. All questions were answered. The patient expressed understanding and agreement with the above treatment plan. The patient is aware they should contact our office by phone for worsening of their current condition or the appearance of new urologic symptoms. Compliance is encouraged with any medications and followup testing that is ordered. It is a privilege to participate in the urologic care of your patient. If you have any questions or concerns regarding treatment for the above conditions, or other urologic issues, please do not hesitate to contact me. The office telephone contact is [phone]. This note is constructed using voice recognition software. While every effort has been made to ensure accuracy diamond cleaner errors may have been included. Yours sincerely, Dr Tyrese Forman MD, [facility] - Urology Providers of Expert, Compassionate Care for the Genitourinary System Coding Level of Care Code Est Pt Level 4 (12059) Diagnoses Benign prostatic hyperplasia with urinary retention N40.1; R33.8 Lower urinary tract symptom presence: symptoms present Lower urinary tract symptom detail: urinary retention Frequency of micturition R35.0 CPT Codes Post Residual Void - PVR CPT Code: 13697-Uilm Void Residual by ultrasound ( [id number])
== END 2023-04-20 09:21 | disposition home or self-care (01) ==
PROVIDERS: Visit Provider Urology
DX: N40.1 Benign prostatic hyperplasia with lower urinary tract symptoms (principal); R33.8 Other retention of urine; R35.0 Frequency of micturition
CPT/HCPCS: 99214

== ENCOUNTER 2023-04-21 14:50 | Outpatient (AMB) | payer OTHER, SELFPAY ==
--- NOTE | 2023-04-21 14:55 | MHC.PC.OV ---
Vital Signs 04/21/23 14:56 04/21/23 15:21 Height 5 ft 9 in Weight 189 lb BMI 27.9 BP 152/98 H 130/80 Blood Pressure Location Lt brachial Lt brachial Position Sitting Sitting Pulse 64 Pulse Source Pulse Oximeter Pulse Oximetry (%) 100 Oxygen Delivery Method Room Air Intake Visit Reasons: Annual exam Intake Note: Patient is here today for a physical. Retail Assistant Required: No Accompanied by: Brother in law-Simone Jimenez Allergies No Known Allergies Allergy (Verified 04/21/23 14:57) Medication List - Last Reconciled 04/21/23 by Ron Snow MD [adult pullups As directed] amlodipine 10 mg PO DAILY 90 days benztropine 1 mg PO DAILY blood pressure monitor (Blood Pressure Kit) As directed clobetasol 0.05% 1 appl topical BID 2 weeks clonazepam 0.5 mg PO DAILY clozapine 200 mg PO BEDTIME deutetrabenazine (Austedo) 6 mg PO DAILY diclofenac sodium 1% (Arthritis Pain (diclofenac)) 4 grams topical QID disposable gloves As directed divalproex (Depakote) 1,000 mg PO .QD divalproex ER 500 mg PO DAILY finasteride 5 mg PO DAILY 90 days fluphenazine decanoate 25 mg IM Q4W linaclotide (Linzess) 145 mcg PO DAILY psyllium husk (Metamucil) 1 tbsp PO DAILY sennosides-docusate sodium 8.6-50 mg (Senna with Docusate Sodium) 2 tab-caps (2 x 8.6-50 mg) PO BEDTIME tamsulosin 0.8 mg (2 x 0.4 mg) PO BEDTIME 90 days Tobacco use date assessed: 04/21/23 Fall risk assessment: 1 Fall in past year Last assessed Fall Risk: 04/21/23 Dental Screening Dental Screen Date: 04/21/23 Did you have a dental visit in the last 12 months?: No Did you have a dental problem in the last 6 months where you did not have access to dental care?: No Was dental information given to patient?: Patient has dentist (Dentures) HPI Annual exam HPI Details 67-year-old overweight male with a history of hypertension impaired glucose tolerance hip osteoarthritis constipation and schizophrenia last seen in August 2022. Patient is here for physical exam. Colonoscopy November 2018. Patient follows up with urology following up with BPH and on finasteride and tamsulosin. In January Urgent Center visit due to a rash on the legs and back diagnosis of dry skin dermatitis but was given steroids also clobetasol. fall recently [facility] Medical History Renal cyst Overweight (BMI 25.0-29.9) Hypertension Vitamin D deficiency Anemia Schizophrenia Thyroglossal duct cyst Constipation Surgical History History of colonoscopy History of drainage of abscess History of prostate surgery Family History Father History of heart attack Hypertension CVD (cardiovascular disease) Mother History of mental problems Hypertension Paternal Grandfather Prostate cancer Maternal Grandmother No problems noted. Maternal Grandfather No problems noted. Paternal Grandmother No problems noted. Social History (Updated 04/21/23 @ 15:27 by Ron Snow MD) Household Members: Spouse Housing: Apartment Alcohol intake: never Patient Tobacco Use Status: Never used Tobacco Years Smoked: stopped 2004 e-Cigarette/Vaping Use: Never Used Second Hand Smoke Exposure: No service: No Current occupational status: disabled Cognitive needs: Yes Hearing needs: No Vision needs: Yes Questionnaire PHQ-9 Over the last 2 weeks, how often have you been bothered by any of the following problems? 1. Little interest or pleasure in doing things: several days 2. Feeling down, depressed, or hopeless: several days 3. Trouble falling or staying asleep, or sleeping too much: not at all 4. Feeling tired or having little energy: not at all 5. Poor appetite or overeating: not at all 6. Feeling bad about yourself - or that you are a failure or have let yourself or your family down: not at all 7. Trouble concentrating on things, such as reading the newspaper or watching television: not at all 8. Moving or speaking so slowly that other people could have noticed. Or the opposite - being so fidgety or restless that you have been moving around a lot more than usual: not at all 9. Thoughts that you would be better off or of hurting yourself in some way: not at all Total score: 2 73988 - PHQ-9 Billing: Yes Source: Developed by Drs. Shmuel Rucker, Krystal Dick, Jeromy Watt and colleagues, with an educational farida from [employer]. Thrive Questionnaire Date Thrive assessed: 04/21/23 I am a: Patient What is your living situation today?: I have a steady place to live Within the past 12 months, did the food you bought not last and you didn't have the money to get more?: Never true Within the past 12 months, did you worry whether your food would run out before you got money to buy more?: Never true Do you have trouble paying for medicines?: No Do you have trouble getting transportation to medical appointments?: No Do you have trouble paying your heating and electricity bill?: No Do you have trouble taking care of your child, family member or friend?: No Do you have trouble with day-to-day activities such as bathing, preparing meals, shopping, managing finances, etc.?: No Are you currently unemployed and looking for a job?: No Are you interested in more education?: No Please select the resources that you would like help with: None Currently or been in a relationship where the following occur: no concerns reported THRIVE Score: 0 AUDIT C Alcohol Use Questionnaire (AUDIT-C) 1. How often do you have a drink containing alcohol?: Never 3. How often do you have six or more drinks on one occasion?: Never Total Score: 0 RANDEE-7 AMB Questionnaire RANDEE-7 Date RANDEE - 7 assessed: 04/21/23 Feeling nervous, anxious, or on edge: 0 = Not at all Not being able to stop or control worryin = Not at all Worrying too much about different things: 0 = Not at all Trouble relaxin = Not at all Being so restless that it is hard to sit still: 0 = Not at all Becoming easily annoyed or irritable: 0 = Not at all Feeling afraid as if something awful might happen: 0 = Not at all Total RANDEE-7 score (0-4 normal; 5-9 mild; 10-14 moderate; 15-21 severe): 0 Source: Developed by Krystal Torrez Kurt Kroenke and colleagues, with an educational farida from [employer]. RANDEE-7 Assessment Billing RANDEE-7 Assessment Tool: RANDEE-7 Assessment 87816 Review of Systems Const Denies poor appetite and Denies weakness Eyes Denies no additional complaints ENT Reports Normal hearing present, Denies dizziness, Denies nasal congestion, Denies tinnitus and Denies sore throat Card Denies chest pain, Denies syncope, Denies rapid heart rate and Denies dyspnea Resp Denies cough and Denies dyspnea GI Denies change in stool character, Reports constipation, Denies diarrhea, Denies nausea and Denies vomiting Denies dysuria and Denies urinary frequency Neuro Reports Normal hearing present, Denies confusion, Denies dizziness, Denies syncope and Denies weakness Psych Denies confusion Physical exam (Primary Care) Vital Signs: Last Vital Signs Pulse 64 04/21/23 14:56 BP 152/98 H 04/21/23 14:56 Pulse Ox 100 04/21/23 14:56 Oxygen Delivery Method Room Air 04/21/23 14:56 BMI result Body Mass Index 27.9 Tobacco/Smoking Status: Tobacco use Status Tobacco use date assessed 04/21/23 04/21/23 14:58 Patient Tobacco Use Status Never used Tobacco 04/21/23 14:58 e-Cigarette/Vaping Use Never Used 04/21/23 14:58 PHQ-9: PHQ-9 Score PHQ-9: Total score 2 04/21/23 15:01 Thrive Assessment: Date of Thrive Assessment Date Thrive assessed 04/21/23 04/21/23 15:01 Currently or been in a relationship where the following occur: no concerns reported Const General: No confusion Orientation/consciousness: No confusion HENMT Head: Yes normocephalic Ears: external ears normal and TM's normal bilaterally Face and sinus: Yes normal facial exam Mouth: moist mucous membranes Throat: Yes tonsils normal Eyes Conjunctivae: conjunctivae normal Pupils: Equal, round and reactive pupils present and Pupil accommodation reflex normal Direct Ophthalmoscopy: normal light reflex Neck Neck: No lymphadenopathy Thyroid: Thyroid normal Chest Chest palpation & inspection: normal inspection of the chest Resp Effort & Inspection: normal respiratory effort and no audible wheezes Auscultation: clear to auscultation bilaterally, no crackles, no wheezes and lung sounds not diminished Cardio Rate: regular rate Rhythm: regular rhythm Peripheral pulses: radial pulses present and dorsalis pedis present GI Other: guaiac negative, prostate- did not feels for any enlargement Palpation (GI): no masses Auscultation: normal bowel sounds and normoactive bowel sounds Rectal Exam - Male: Yes deferred Male General Exam: Yes normal external exam Skin General skin exam: no rashes or lesions noted Rashes: no rashes Neuro General: No confusion Cranial nerves: Yes Equal, round and reactive pupils present and Yes Normal hearing present Cognition (Neuro): normal cognition Gait exam (Neuro): Normal gait present Motor exam (neuro): 5/5 motor strength present throughout Deep tendon reflexes (DTR's): Right brachioradialis reflex intensity grade: 2+, Left brachioradialis reflex intensity grade: 2+, Right patellar reflex intensity grade: 2+ and Left patellar reflex intensity grade: 2+ Extrem Other: mild R knee crepitations , no redness, mil;d warmth General: No edema Assessment and Plan Assessment & Plan (1) Annual physical exam: Code(s): Z00.00 - Encounter for general adult medical examination without abnormal findings (2) Anemia: Comment: Anemia of chronic disease Code(s): D64.9 - Anemia, unspecified Qualifiers: Anemia type: unspecified type Qualified Code(s): D64.9 - Anemia, unspecified Plan: Anemia of chronic disease stable continue to monitor (3) Hypertension: Code(s): I10 - Essential (primary) hypertension Qualifiers: Hypertension type: essential hypertension Qualified Code(s): I10 - Essential (primary) hypertension Plan: Continue with blood pressure medication. Decrease salt intake and exercise continue with amlodipine 10 mg once a day (4) Schizophrenia: Comment: Dr. Medina November 2019, [facility] Mc[facility] Code(s): F20.9 - Schizophrenia, unspecified Qualifiers: Schizophrenia type: disorganized schizophrenia Qualified Code(s): F20.1 - Disorganized schizophrenia Plan: Continue to follow-up with counseling and therapy (5) BPH (benign prostatic hyperplasia): Code(s): N40.0 - Benign prostatic hyperplasia without lower urinary tract symptoms Qualifiers: Lower urinary tract symptom presence: symptoms present Lower urinary tract symptom detail: urinary retention Qualified Code(s): N40.1 - Benign prostatic hyperplasia with lower urinary tract symptoms; R33.8 - Other retention of urine Plan: Patient follows up with urology on tamsulosin and finasteride Orders: Orders XR knee RT 2V Today M16.11 - Unilateral primary osteoarthritis, right hip Medications: Refilled blood pressure monitor (Blood Pressure Kit) As directed 1 ea 0RF I10 - Essential (primary) hypertension Coding Level of Care Code Est Pt Prev Care >65y(81790) Diagnoses Annual physical exam Z00.00 Anemia, unspecified type D64.9 Anemia type: unspecified type Essential hypertension I10 Hypertension type: essential hypertension 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
[2023-04-21 14:56] VITALS: BP 152/98; PULSE 64; O2SAT 100; BMI 27.9
[2023-04-21 15:21] VITALS: BP 130/80
== END 2023-04-21 15:51 | disposition home or self-care (01) ==
PROVIDERS: Visit Provider Internal Medicine
DX: Z00.00 Encounter for general adult medical examination without abnormal findings (principal); F20.1 Disorganized schizophrenia; D64.9 Anemia, unspecified; I10 Essential (primary) hypertension; N40.1 Benign prostatic hyperplasia with lower urinary tract symptoms; R33.8 Other retention of urine
CPT/HCPCS: 99397

== ENCOUNTER 2023-04-26 12:13 | Outpatient (REF) | payer OTHER, SELFPAY ==
--- NOTE | ~2023-04-26 | XR_ITS ---
EXAMINATION: XR KNEE, RIGHT CLINICAL INFORMATION: Unilateral primary osteoarthritis. COMPARISON: Radiographs dated 06/15/2022. TECHNIQUE: AP and lateral views of the right knee. FINDINGS: Bony alignment and mineralization are normal. The lateral, medial and patellofemoral joint space compartments are well-maintained. There is slight peripheral osteophyte formation of the lateral medial joint space compartment. No fracture, dislocation or joint effusion is seen. There is no foreign body. XR/XR knee RT 2V IMPRESSION: 1. There is slight osteoarthritic change of the lateral medial joint space compartments of the right knee. 2. There is no fracture, dislocation or joint effusion.
== END 2023-04-26 12:14 | disposition home or self-care (01) ==
LOC: HO.XRAY 12:13
PROVIDERS: PCP Internal Medicine; Visit Provider Internal Medicine
DX: M16.11 Unilateral primary osteoarthritis, right hip (principal)
CPT/HCPCS: 73560

== ENCOUNTER 2023-05-24 12:00 | Outpatient (REF) | payer OTHER, SELFPAY ==
[2023-05-24 12:13] LABS: MANUAL DIFF FLAG NO
[2023-05-24 12:35] LABS: Basophils Percent Auto 0.2 % (0-2); Eosinophils Percent Auto 0.6 % (0-4); Hematocrit 40.9 % (42.0-52.0); Hemoglobin 13.4 g/dl (14.0-18.0); Imm Gran Abs Auto 0.01 X10*3/uL (0.00-0.03); Imm Gran Pct Auto 0.2 % (0.0-0.4); Lymphocytes Percent Auto 37.7 % (20-40); Mean Corpuscular HGB Conc 32.8 g/dl (31.0-36.0); Mean Corpuscular Hemoglobin 29.1 pg (27.0-33.0); Mean Corpuscular Volume 88.7 fL (80.0-98.0); Mean Platelet Volume 10.3 fL (9.4-12.4); Monocytes Absolute Auto 0.8 X10*3/uL (0.1-1.2); Monocytes Percent Auto 15.2 % (2-11); Neut%MD 46.1 %; Neutrophils Absolute Auto 2.5 x10*3/uL (2.0-8.3); Neutrophils Percent Auto 46.1 % (45-73); Platelet Count 221 X10*3/uL (160-400); Red Blood Count 4.61 X10*6/uL (4.60-5.80); Red Cell Distribution Width 13.2 % (11.0-16.0); WBCANC 5.4 X10*3/uL; White Blood Count 5.4 X10*3/uL (4.8-10.8)
== END 2023-05-24 12:01 | disposition home or self-care (01) ==
LOC: HO.LABR 12:00
PROVIDERS: Visit Provider Nurse Practitioner
DX: Z79.899 Other long term (current) drug therapy (principal)
CPT/HCPCS: 36415; 85025

== ENCOUNTER 2023-06-19 12:57 | Outpatient (REF) | payer OTHER, SELFPAY ==
[2023-06-19 13:07] LABS: MANUAL DIFF FLAG NO
[2023-06-19 13:41] LABS: Basophils Percent Auto 0.4 % (0-2); Eosinophils Percent Auto 0.7 % (0-4); Hematocrit 37.5 % (42.0-52.0); Hemoglobin 12.5 g/dl (14.0-18.0); Imm Gran Abs Auto 0.02 X10*3/uL (0.00-0.03); Imm Gran Pct Auto 0.4 % (0.0-0.4); Lymphocytes Absolute Auto 2.2 X10*3/uL (1.2-4.9); Lymphocytes Percent Auto 39.5 % (20-40); Mean Corpuscular HGB Conc 33.3 g/dl (31.0-36.0); Mean Corpuscular Hemoglobin 29.8 pg (27.0-33.0); Mean Corpuscular Volume 89.5 fL (80.0-98.0); Mean Platelet Volume 10.3 fL (9.4-12.4); Monocytes Absolute Auto 0.6 X10*3/uL (0.1-1.2); Monocytes Percent Auto 11.1 % (2-11); Neutrophils Absolute Auto 2.7 x10*3/uL (2.0-8.3); Neutrophils Percent Auto 47.9 % (45-73); Platelet Count 216 X10*3/uL (160-400); Red Blood Count 4.19 X10*6/uL (4.60-5.80); Red Cell Distribution Width 13.2 % (11.0-16.0); White Blood Count 5.6 X10*3/uL (4.8-10.8)
== END 2023-06-19 12:58 | disposition home or self-care (01) ==
LOC: HO.LABR 12:57
PROVIDERS: Visit Provider Nurse Practitioner
DX: Z79.899 Other long term (current) drug therapy (principal)
CPT/HCPCS: 36415; 85025

== ENCOUNTER 2023-07-19 11:01 | Outpatient (REF) | payer OTHER, SELFPAY ==
[2023-07-19 12:03] LABS: Hematocrit 38.7 % (42.0-52.0); Hemoglobin 12.8 g/dl (14.0-18.0); Platelet Count 237 X10*3/uL (160-400); Red Blood Count 4.35 X10*6/uL (4.60-5.80)
== END 2023-07-19 11:02 | disposition home or self-care (01) ==
LOC: HO.LABR 11:01
PROVIDERS: Visit Provider Nurse Practitioner
DX: Z79.899 Other long term (current) drug therapy (principal)
CPT/HCPCS: 36415; 85025

== ENCOUNTER 2023-08-17 11:33 | Outpatient (REF) | payer OTHER, SELFPAY ==
[2023-08-17 11:48] LABS: MANUAL DIFF FLAG NO
[2023-08-17 12:03] LABS: Basophils Percent Auto 0.4 % (0-2); Eosinophils Percent Auto 0.4 % (0-4); Hematocrit 41.9 % (42.0-52.0); Hemoglobin 14.1 g/dl (14.0-18.0); Imm Gran Abs Auto 0.02 X10*3/uL (0.00-0.03); Imm Gran Pct Auto 0.3 % (0.0-0.4); Lymphocytes Absolute Auto 2.1 X10*3/uL (1.2-4.9); Lymphocytes Percent Auto 29.9 % (20-40); Mean Corpuscular HGB Conc 33.7 g/dl (31.0-36.0); Mean Corpuscular Hemoglobin 30.1 pg (27.0-33.0); Mean Corpuscular Volume 89.3 fL (80.0-98.0); Monocytes Absolute Auto 0.6 X10*3/uL (0.1-1.2); Monocytes Percent Auto 8.3 % (2-11); Neutrophils Absolute Auto 4.3 x10*3/uL (2.0-8.3); Neutrophils Percent Auto 60.7 % (45-73); Platelet Count 241 X10*3/uL (160-400); Red Blood Count 4.69 X10*6/uL (4.60-5.80); Red Cell Distribution Width 13.3 % (11.0-16.0)
[2023-08-17 14:22] LABS: Mean Platelet Volume 9.8 fL (9.4-12.4)
== END 2023-08-17 11:34 | disposition home or self-care (01) ==
LOC: HO.LABR 11:33
PROVIDERS: Visit Provider Nurse Practitioner
DX: Z79.899 Other long term (current) drug therapy (principal)
CPT/HCPCS: 36415; 85025

== ENCOUNTER 2023-09-19 13:09 | Outpatient (REF) | payer OTHER, SELFPAY ==
[2023-09-19 13:22] LABS: MANUAL DIFF FLAG NO
[2023-09-19 13:40] LABS: Basophils Percent Auto 0.6 % (0-2); Eosinophils Percent Auto 0.8 % (0-4); Hematocrit 37.4 % (42.0-52.0); Hemoglobin 12.7 g/dl (14.0-18.0); Imm Gran Abs Auto 0.02 X10*3/uL (0.00-0.03); Imm Gran Pct Auto 0.4 % (0.0-0.4); Lymphocytes Absolute Auto 1.9 X10*3/uL (1.2-4.9); Mean Corpuscular Hemoglobin 30.2 pg (27.0-33.0); Mean Corpuscular Volume 88.8 fL (80.0-98.0); Mean Platelet Volume 9.9 fL (9.4-12.4); Monocytes Absolute Auto 0.5 X10*3/uL (0.1-1.2); Monocytes Percent Auto 11.1 % (2-11); Neutrophils Absolute Auto 2.4 x10*3/uL (2.0-8.3); Neutrophils Percent Auto 49.1 % (45-73); Platelet Count 222 X10*3/uL (160-400); Red Blood Count 4.21 X10*6/uL (4.60-5.80); Red Cell Distribution Width 13.1 % (11.0-16.0); White Blood Count 4.9 X10*3/uL (4.8-10.8)
== END 2023-09-19 13:10 | disposition home or self-care (01) ==
LOC: HO.LABR 13:09
PROVIDERS: PCP Internal Medicine; Visit Provider Nurse Practitioner
DX: Z51.81 Encounter for therapeutic drug level monitoring (principal)
CPT/HCPCS: 36415; 85025

== ENCOUNTER 2023-10-17 08:34 | Outpatient (REF) | payer OTHER, SELFPAY ==
[2023-10-17 08:58] LABS: MANUAL DIFF FLAG NO
[2023-10-17 09:27] LABS: Basophils Percent Auto 0.4 % (0-2); Eosinophils Absolute Auto 0.1 X10*3/uL (0.0-0.4); Eosinophils Percent Auto 1.3 % (0-4); Hematocrit 42.2 % (42.0-52.0); Hemoglobin 13.8 g/dl (14.0-18.0); Imm Gran Abs Auto 0.02 X10*3/uL (0.00-0.03); Imm Gran Pct Auto 0.4 % (0.0-0.4); Lymphocytes Absolute Auto 2.1 X10*3/uL (1.2-4.9); Mean Corpuscular HGB Conc 32.7 g/dl (31.0-36.0); Mean Corpuscular Hemoglobin 29.9 pg (27.0-33.0); Mean Corpuscular Volume 91.3 fL (80.0-98.0); Mean Platelet Volume 10.3 fL (9.4-12.4); Monocytes Absolute Auto 0.6 X10*3/uL (0.1-1.2); Neutrophils Absolute Auto 2.8 x10*3/uL (2.0-8.3); Neutrophils Percent Auto 49.9 % (45-73); Platelet Count 229 X10*3/uL (160-400); Red Blood Count 4.62 X10*6/uL (4.60-5.80); Red Cell Distribution Width 13.3 % (11.0-16.0); White Blood Count 5.6 X10*3/uL (4.8-10.8)
[2023-10-17 09:28] LABS: Basophils Percent Auto 0.4 % (0-2); Eosinophils Absolute Auto 0.1 X10*3/uL (0.0-0.4); Eosinophils Percent Auto 1.1 % (0-4); Hematocrit 42.3 % (42.0-52.0); Hemoglobin 13.8 g/dl (14.0-18.0); Imm Gran Abs Auto 0.02 X10*3/uL (0.00-0.03); Imm Gran Pct Auto 0.4 % (0.0-0.4); Lymphocytes Absolute Auto 2.1 X10*3/uL (1.2-4.9); Lymphocytes Percent Auto 37.6 % (20-40); Mean Corpuscular HGB Conc 32.6 g/dl (31.0-36.0); Mean Corpuscular Hemoglobin 29.9 pg (27.0-33.0); Mean Corpuscular Volume 91.8 fL (80.0-98.0); Mean Platelet Volume 10.1 fL (9.4-12.4); Monocytes Absolute Auto 0.6 X10*3/uL (0.1-1.2); Neutrophils Absolute Auto 2.8 x10*3/uL (2.0-8.3); Neutrophils Percent Auto 50.5 % (45-73); Platelet Count 212 X10*3/uL (160-400); Red Blood Count 4.61 X10*6/uL (4.60-5.80); Red Cell Distribution Width 13.2 % (11.0-16.0); White Blood Count 5.6 X10*3/uL (4.8-10.8)
[2023-10-17 09:29] LABS: Estimated Average Glucose 114 mg/dL; Hemoglobin A1c % 5.6 % (<6.0)
[2023-10-17 09:47] LABS: Alanine Aminotransferase 20 U/L (0-40); Albumin Level 4.2 g/dL (3.5-5.0); Alkaline Phosphatase 89 U/L (39-117); Anion Gap 11 (12-20); Aspartate Amino Transferase 20 U/L (5-37); Bilirubin Total 0.5 mg/dL (0.0-1.0); Blood Urea Nitrogen 16 mg/dL (9-16); Calcium 9.2 mg/dL (8.4-10.2); Carbon Dioxide 29 mmol/L (22-29); Chloride 105 mmol/L (96-108); Cholesterol 167 mg/dL (<200); Estimated Glomerular Filt Rate > 60; Glucose Random 96 mg/dL (60-115); HDL Cholesterol 49 mg/dL (>40); LDL Cholesterol Calculated 107 mg/dL (<100); Potassium 4.5 mmol/L (3.3-5.1); Sodium 140 mmol/L (135-145); Total Protein 7.5 g/dL (6.5-8.0); Triglycerides 57 mg/dL (<150)
[2023-10-17 10:02] LABS: Appearance Urine Clear; Color Urine Yellow; Glucose Urine UA Negative (Negative); Leukocyte Esterase Urine Negative (Negative); Nitrite Urine Negative (Negative); Urine Blood Negative (Negative); Urine Ketones Negative (Negative); Urine Protein Negative (Neg-Trace)
[2023-10-17 10:06] LABS: Thyroid Stimulating Hormone 2.77 uIU/mL (0.32-4.0)
[2023-10-17 10:06] LABS: Bacteria Urine None Seen (None Seen); Hyaline Casts Urine 0-2 /LPF (0-2); RBC Urine 0-2 /HPF (0-2); Squamous Epithelial Cell Urine 0-2 /HPF (0-2); WBC Urine 0-5 /HPF (0-5)
[2023-10-17 11:00] LABS: Folate 9.9 ng/mL (> or = 4.0); Prostate Specific Antigen Scr 0.88 ng/mL (<0.05-4.0); Vitamin B12 549 pg/mL (200-900)
== END 2023-10-17 08:35 | disposition home or self-care (01) ==
LOC: HO.LAB 08:34
PROVIDERS: Absent Provider Internal Medicine; PCP Internal Medicine; Visit Provider Nurse Practitioner
DX: Z51.81 Encounter for therapeutic drug level monitoring (principal); R73.02 Impaired glucose tolerance (oral); E78.00 Pure hypercholesterolemia, unspecified; Z12.5 Encounter for screening for malignant neoplasm of prostate
CPT/HCPCS: 36415; 80053; 80061; 80164; 81001; 82607; 82746; 83036; 84153; 84443; 85025

== ENCOUNTER 2023-10-30 10:02 | Outpatient (AMB) | payer OTHER, SELFPAY ==
--- NOTE | 2023-10-30 10:11 | A.OFFPC_ITS ---
Vital Signs 3 10/30/23 10:12 Height 5 ft 9 in Weight 183 lb BMI 27.0 BP 118/68 Blood Pressure Location Lt brachial Position Sitting Pulse 58 Pulse Source Pulse Oximeter Pulse Oximetry (%) 97 Oxygen Delivery Method Room Air Intake Visit Reasons: HTN, IGT Allergies No Known Allergies Allergy (Verified 10/30/23 10:12) Tobacco use date assessed: 04/21/23 Fall risk assessment: No Falls in past year Last assessed Fall Risk: 10/30/23 Dental Screening Dental Screen Date: 10/30/23 Did you have a dental visit in the last 12 months?: No Did you have a dental problem in the last 6 months where you did not have access to dental care?: No Was dental information given to patient?: No HPI HTN, IGT 2 HPI0 Details 68-year-old overweight male with a histo ry of anemia hypertension schizophrenia BPH coming in for follow-up. Last seen in 04/2023 for physical exam. Patient's colonoscopy is up-to-date November 2018. Review of the notes had a knee x-ray right showing slight osteoarthritis of the lateral medial joint space compartment of the right knee. Patient is here for follow-up. was called due to depakote level but was told py psych no chnage- not using for seizure. cataract surgery pending surgery Dr. Goss. also noted wart growth L 2nd finger and L abdomen elisabeth on nevi [facility] Medical History (Updated 10/30/23 @ 10:27 by Ron Snow MD) TSH elevation Frequency of micturition Hyponatremia Renal insufficiency Tremor Rash Halitosis Hip pain, right Renal cyst Overweight (BMI 25.0-29.9) Hypertension Vitamin D deficiency Anemia Schizophrenia Thyroglossal duct cyst Constipation Surgical History History of colonoscopy History of drainage of abscess History of prostate surgery Family History Father History of heart attack Hypertension CVD (cardiovascular disease) Mother History of mental problems Hypertension Paternal Grandfather Prostate cancer Maternal Grandmother No problems noted. Maternal Grandfather No problems noted. Paternal Grandmother No problems noted. Social History (Updated 04/21/23 @ 15:27 by Ron Snow MD) Household Members: Spouse Housing: Apartment Alcohol intake: never Patient Tobacco Use Status: Never used Tobacco Tobacco use type: Cigarette Years Smoked: stopped 2004 e-Cigarette/Vaping Use: Never Used Second Hand Smoke Exposure: No service: No Current occupational status: disabled Cognitive needs: Yes Hearing needs: No Vision needs: Yes Questionnaire PHQ-9 Over the last 2 weeks, how often have you been bothered by any of the following problems? 1. Little interest or pleasure in doing things: several days 2. Feeling down, depressed, or hopeless: several days 3. Trouble falling or staying asleep, or sleeping too much: not at all 4. Feeling tired or having little energy: not at all 5. Poor appetite or overeating: not at all 6. Feeling bad about yourself - or that you are a failure or have let yourself or your family down: not at all 7. Trouble concentrating on things, such as reading the newspaper or watching television: not at all 8. Moving or speaking so slowly that other people could have noticed. Or the opposite - being so fidgety or restless that you have been moving around a lot more than usual: not at all 9. Thoughts that you would be better off or of hurting yourself in some way: not at all Total score: 2 81986 - PHQ-9 Billing: Yes Source: Developed by Drs. Shmuel Rucker, Jeromy Nichols and colleagues, with an educational farida from [employer]. Thrive Questionnaire Date Thrive assessed: 04/21/23 AUDIT C Alcohol Use Questionnaire (AUDIT-C) 1. How often do you have a drink containing alcohol?: Never 3. How often do you have six or more drinks on one occasion?: Never Total Score: 0 RANDEE-7 AMB Questionnaire RANDEE-7 Date RANDEE - 7 assessed: 04/21/23 Source: Developed by Drs. Shmuel Rucker, Jeromy Nichols and colleagues, with an educational farida from [employer]. Physical exam (Primary Care) Tobacco/Smoking Status: Tobacco use Status Tobacco use date assessed 04/21/23 04/21/23 14:58 Patient Tobacco Use Status Never used Tobacco 04/21/23 15:27 e-Cigarette/Vaping Use Never Used 04/21/23 15:27 Thrive Assessment: Date of Thrive Assessment Date Thrive assessed 04/21/23 04/21/23 15:01 Const General: alert; No acute distress Eyes Conjunctivae: conjunctivae normal Resp Auscultation: clear to auscultation bilaterally Cardio Rate: regular rate Rhythm: regular rhythm GI Inspection: Yes normal to inspection Abdomen image: 2 1. Polypoid growth 5 mm on a pigmented nevi with rough surface on the head Extrem General: Yes normal to inspection and No edema Hand/finger images: 2 1. 5 mm rough surfaced rash on the 2nd finger PIP Assessment and Plan Assessment & Plan (1) Anemia: Comment: Anemia of chronic disease Code(s): D64.9 - Anemia, unspecified Qualifiers: Anemia type: unspecified type Qualified Code(s): D64.9 - Anemia, unspecified Plan: improving and will continue to monitor (2) Hypertension: Code(s): I10 - Essential (primary) hypertension Qualifiers: Hypertension type: essential hypertension Qualified Code(s): I10 - Essential (primary) hypertension Plan: Continue with amlodipine 10 mg once a day (3) Schizophrenia: Comment: Dr. Medina November 2019, [facility] Code(s): F20.9 - Schizophrenia, unspecified Qualifiers: Schizophrenia type: disorganized schizophrenia Qualified Code(s): F20.1 - Disorganized schizophrenia Plan: Continue to follow-up with psychiatry and counseling. (4) Overweight (BMI 25.0-29.9): Code(s): E66.3 - Overweight Plan: Continue with diet and exercise (5) Impaired glucose tolerance: Code(s): R73.02 - Impaired glucose tolerance (oral) Plan: Hemoglobin A1c in the normal range, Decrease the amount of carbohydrate intake, pasta, bread, rice and potatoes are all sugar and that is aside from all the sweet stuff, remember that fruits are good but they are Sweet also. (6) BPH (benign prostatic hyperplasia): Code(s): N40.0 - Benign prostatic hyperplasia without lower urinary tract symptoms Qualifiers: Lower urinary tract symptom detail: urinary retention Lower urinary tract symptom presence: symptoms present Qualified Code(s): N40.1 - Benign prostatic hyperplasia with lower urinary tract symptoms; R33.8 - Other retention of urine Plan: Continue tamsulosin (7) Knee pain, right: Code(s): M25.561 - Pain in right knee Plan: Keep active (8) Wart viral: Comment: L 2nd finger and L side skin of abdomen Code(s): B07.9 - Viral wart, unspecified Plan: dermatology referral Orders: Referrals 2 Dermatology Referral B07.9 - Viral wart, unspecified Coding Level of Care Code Est Pt Level 4 (86452) Diagnoses Anemia, unspecified type D64.9 Anemia type: unspecified type Essential hypertension I10 Hypertension type: essential hypertension 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
[2023-10-30 10:12] VITALS: BP 118/68; PULSE 58; O2SAT 97; BMI 27.0
== END 2023-10-30 10:33 | disposition home or self-care (01) ==
PROVIDERS: PCP Internal Medicine; Visit Provider Internal Medicine
DX: D64.9 Anemia, unspecified (principal); I10 Essential (primary) hypertension; F20.1 Disorganized schizophrenia; E66.3 Overweight; R73.02 Impaired glucose tolerance (oral); N40.1 Benign prostatic hyperplasia with lower urinary tract symptoms; R33.8 Other retention of urine; M25.561 Pain in right knee; B07.9 Viral wart, unspecified
CPT/HCPCS: 99214

== ENCOUNTER 2023-12-04 14:37 | Outpatient (REF) | payer OTHER, SELFPAY ==
[2023-12-04 15:22] LABS: MANUAL DIFF FLAG NO
[2023-12-04 16:09] LABS: Basophils Percent Auto 0.4 % (0-2); Eosinophils Absolute Auto 0.1 X10*3/uL (0.0-0.4); Eosinophils Percent Auto 1.4 % (0-4); Hematocrit 39.5 % (42.0-52.0); Hemoglobin 12.8 g/dl (14.0-18.0); Imm Gran Abs Auto 0.02 X10*3/uL (0.00-0.03); Imm Gran Pct Auto 0.3 % (0.0-0.4); Lymphocytes Absolute Auto 2.3 X10*3/uL (1.2-4.9); Mean Corpuscular HGB Conc 32.4 g/dl (31.0-36.0); Mean Corpuscular Hemoglobin 29.8 pg (27.0-33.0); Mean Corpuscular Volume 92.1 fL (80.0-98.0); Mean Platelet Volume 10.6 fL (9.4-12.4); Monocytes Percent Auto 13.7 % (2-11); Neut%MD 51.2 %; Neutrophils Absolute Auto 3.6 x10*3/uL (2.0-8.3); Neutrophils Percent Auto 51.2 % (45-73); Platelet Count 191 X10*3/uL (160-400); Red Blood Count 4.29 X10*6/uL (4.60-5.80); Red Cell Distribution Width 13.3 % (11.0-16.0); WBCANC 7.1 X10*3/uL; White Blood Count 7.1 X10*3/uL (4.8-10.8)
== END 2023-12-04 14:38 | disposition home or self-care (01) ==
LOC: HO.LABR 14:37
PROVIDERS: PCP Internal Medicine; Visit Provider Nurse Practitioner
DX: Z79.899 Other long term (current) drug therapy (principal)
CPT/HCPCS: 36415; 85025

== ENCOUNTER 2024-01-02 12:53 | Outpatient (REF) | payer OTHER, SELFPAY ==
[2024-01-02 13:17] LABS: MANUAL DIFF FLAG NO
[2024-01-02 13:44] LABS: Basophils Percent Auto 0.4 % (0-2); Eosinophils Absolute Auto 0.1 X10*3/uL (0.0-0.4); Eosinophils Percent Auto 0.9 % (0-4); Hemoglobin 12.9 g/dl (14.0-18.0); Imm Gran Abs Auto 0.03 X10*3/uL (0.00-0.03); Imm Gran Pct Auto 0.4 % (0.0-0.4); Lymphocytes Percent Auto 30.1 % (20-40); Mean Corpuscular HGB Conc 33.1 g/dl (31.0-36.0); Mean Corpuscular Hemoglobin 30.1 pg (27.0-33.0); Mean Corpuscular Volume 90.9 fL (80.0-98.0); Mean Platelet Volume 10.4 fL (9.4-12.4); Monocytes Absolute Auto 0.7 X10*3/uL (0.1-1.2); Monocytes Percent Auto 9.6 % (2-11); Neutrophils Percent Auto 58.6 % (45-73); Platelet Count 186 X10*3/uL (160-400); Red Blood Count 4.29 X10*6/uL (4.60-5.80); Red Cell Distribution Width 13.4 % (11.0-16.0); White Blood Count 6.8 X10*3/uL (4.8-10.8)
== END 2024-01-02 12:54 | disposition home or self-care (01) ==
LOC: HO.LAB 12:53
PROVIDERS: PCP Internal Medicine; Visit Provider Nurse Practitioner
DX: Z51.81 Encounter for therapeutic drug level monitoring (principal)
CPT/HCPCS: 36415; 85025

== ENCOUNTER 2024-01-08 14:33 | Outpatient (AMB) | payer OTHER, SELFPAY ==
--- NOTE | 2024-01-08 14:37 | MHC.PC.OV ---
Vital Signs 01/08/24 14:38 Height 5 ft 9 in Weight 184 lb BMI 27.2 BP 130/84 Blood Pressure Location Lt brachial Position Sitting Pulse 72 Pulse Source Pulse Oximeter Pulse Oximetry (%) 98 Oxygen Delivery Method Room Air Intake Visit Reasons: cataract surgery rt 01/21 & left eye 02/04 Allergies No Known Allergies Allergy (Verified 01/08/24 14:45) Medication List - Last Reconciled 01/08/24 by Tanya Mullen PA-C [adult pullups As directed] amlodipine 10 mg PO DAILY 90 days benztropine 1 mg PO DAILY blood pressure monitor (Blood Pressure Kit) As directed clobetasol 0.05% 1 appl topical BID 2 weeks clonazepam 0.5 mg PO DAILY clozapine 200 mg PO BEDTIME deutetrabenazine (Austedo) 6 mg PO DAILY diclofenac sodium 1% (Arthritis Pain (diclofenac)) 4 grams topical QID disposable gloves As directed divalproex (Depakote) 1,000 mg PO .QD divalproex ER 500 mg PO DAILY finasteride 5 mg PO DAILY 90 days fluphenazine decanoate 25 mg IM Q4W linaclotide (Linzess) 145 mcg PO DAILY psyllium husk (Metamucil) 1 tbsp PO DAILY sennosides-docusate sodium 8.6-50 mg (Senna with Docusate Sodium) 2 tab-caps (2 x 8.6-50 mg) PO BEDTIME tamsulosin 0.8 mg (2 x 0.4 mg) PO BEDTIME 90 days Tobacco use date assessed: 04/21/23 Fall risk assessment: No Falls in past year Last assessed Fall Risk: 01/08/24 Dental Screening Dental Screen Date: 10/30/23 HPI cataract surgery rt 01/21 & left eye 02/04 HPI Details 68-year-old overweight male with past medical history of anemia, hypertension, schizophrenia, BPH last seen by Dr. Snow October 2023 coming in for preoperative exam. Patient is scheduled to have cataract surgery with Dr. Goss 01/22/2024 for the right eye and 02/05/2024 for left eye. Hypertension: Blood pressure at goal today 130/84. Presently on amlodipine 10 mg. No history of CVA, [place], CHF, or diabetes mellitus. Patient has no acute concerns today. [facility] Medical History TSH elevation Frequency of micturition Hyponatremia Renal insufficiency Tremor Rash Halitosis Hip pain, right Renal cyst Overweight (BMI 25.0-29.9) Hypertension Vitamin D deficiency Anemia Schizophrenia Thyroglossal duct cyst Constipation Surgical History History of colonoscopy History of drainage of abscess History of prostate surgery Family History Father History of heart attack Hypertension CVD (cardiovascular disease) Mother History of mental problems Hypertension Paternal Grandfather Prostate cancer Maternal Grandmother No problems noted. Maternal Grandfather No problems noted. Paternal Grandmother No problems noted. Social History Household Members: Spouse Housing: Apartment Alcohol intake: never Patient Tobacco Use Status: Never used Tobacco Tobacco use type: Cigarette Years Smoked: stopped 2004 e-Cigarette/Vaping Use: Never Used Second Hand Smoke Exposure: No service: No Current occupational status: disabled Cognitive needs: Yes Hearing needs: No Vision needs: Yes Questionnaire Thrive Questionnaire Date Thrive assessed: 04/21/23 AUDIT C Alcohol Use Questionnaire (AUDIT-C) 1. How often do you have a drink containing alcohol?: Never 3. How often do you have six or more drinks on one occasion?: Never Total Score: 0 RANDEE-7 AMB Questionnaire RANDEE-7 Date RANDEE - 7 assessed: 04/21/23 Source: Developed by Drs. Shmuel Rucker, Krystal Dick, Jeromy Watt and colleagues, with an educational farida from [employer]. Review of Systems Const Denies fatigue, Denies fever(s) and Denies headache(s) Eyes Reports no additional complaints and Denies change in vision ENT Denies dizziness, Denies facial pain and Denies headache(s) Card Denies chest pain, Denies syncope, Denies irregular heart rhythm, Denies lightheadedness and Denies dyspnea Resp Denies cough and Denies dyspnea GI Denies abdominal pain, Denies nausea and Denies vomiting Denies dysuria, Denies urinary frequency, Denies urinary hesitancy and Denies urinary urgency Musc Denies back pain and Denies myalgias Skin/Breast Reports system reviewed and no additional complaints, except as documented Neuro Denies dizziness, Denies syncope and Denies headache(s) Psych Reports no additional complaints Endo Denies fatigue Physical exam (Primary Care) Tobacco/Smoking Status: Tobacco use Status Tobacco use date assessed 04/21/23 10/30/23 10:17 Patient Tobacco Use Status Never used Tobacco 10/30/23 10:17 Tobacco use type Cigarette 10/30/23 10:17 e-Cigarette/Vaping Use Never Used 10/30/23 10:17 Thrive Assessment: Date of Thrive Assessment Date Thrive assessed 04/21/23 10/30/23 10:17 Const General: cooperative, healthy appearing, comfortable and no acute distress Orientation/consciousness: patient oriented x3 HENMT Head: Yes normocephalic Ears: hearing grossly normal bilaterally, TM's normal bilaterally and EAC's normal General nose exam: Normal external nose present Eyes General: appearance normal, both eyes and all related structures Conjunctivae: conjunctivae normal Neck Neck: Yes full ROM and Yes no lymphadenopathy Resp Effort & Inspection: normal respiratory effort Auscultation: clear to auscultation bilaterally, no crackles, no rales, no rhonchi and no wheezes Cardio Rate: regular rate Rhythm: regular rhythm GI Palpation (GI): Soft to palpation, not firm, nontender, no guarding, not rigid and no masses Skin General skin exam: no rashes or lesions noted Neuro General: patient oriented x3 Gait exam (Neuro): Normal gait present Extrem General: Yes normal to inspection, Yes full ROM and No edema Psych Affect: normal affect Attitude: cooperative Insight: Good insight present (Psych) Judgement: Good judgement present (Psych) Coding Level of Care Code Est Pt Level 3 (07555) Diagnoses Pre-op evaluation Z01.818 Assessment & Plan Assessment & Plan (1) Pre-op evaluation: Code(s): Z01.818 - Encounter for other preprocedural examination Category: Medical Plan: Regarding preop clearance, the patient is at low-moderate risk for proposed surgery due to age and history of hypertension however blood pressure is well managed at this time. Reviewed with the patient that no surgery is completely free of risk and that this examination is to assist the surgeon in reviewing informed consent. Patient is nondiabetic, takes no disease modifying drugs, and is not on any anticoagulants or NSAIDs. She has undergone surgery in the past with no complications. Blood work evaluated. No further workup needed at this time and may proceed with the contemplated procedure. Thank you very much for letting me participate in the care of this patient Plan This note was constructed using voice recognition software. While every effort has been made to ensure accuracy and cable ferryboat operator, still areas may have been included sometimes these areas may affect the content or meeting of the given symptoms. Total time spent caring for the patient today was 30 minutes. This includes time spent before the visit reviewing the chart, time spent during the visit, and time spent after the visit and documentation.
[2024-01-08 14:38] VITALS: BP 130/84; PULSE 72; O2SAT 98; BMI 27.2
== END 2024-01-08 14:57 | disposition home or self-care (01) ==
PROVIDERS: PCP Internal Medicine
DX: Z01.818 Encounter for other preprocedural examination (principal)

== ENCOUNTER → 2024-01-08 14:33 | Outpatient (BNVA) | payer OTHER, SELFPAY | PROVIDERS: PCP Internal Medicine | DX: Z01.818 Encounter for other preprocedural examination (principal) | CPT/HCPCS: 99212 ==

== ENCOUNTER 2024-01-22 09:45 | Day surgery (SDC) | payer OTHER, SELFPAY ==
[2024-01-17 13:54] VITALS: BMI 27.2
[2024-01-17 14:35] VITALS: BMI 27.2
[2024-01-22 10:59] VITALS: BMI 26.5
[2024-01-22] MEDS: Tetracaine HCl/PF 0.5% Oph Sol 4 ML DROPS 1 DROP EYE-RIGHT (11:15)
[2024-01-22] MEDS: Cyclopentolate 1 % Ophth Sol 2 ML DRPBTL 1 DROP EYE-RIGHT ×3 (11:17→11:23)
[2024-01-22] MEDS: Tropicamide 1 % Ophth Sol 3 ML BTL 1 DROP EYE-RIGHT ×3 (11:18→11:24)
[2024-01-22] MEDS: Ketorolac Tromethamine 0.5% Op 10 ML DROPS 1 DROP EYE-RIGHT ×3 (11:19→11:25)
[2024-01-22] MEDS: Phenylephrine HCL 2.5% Oph SoL 2 ML BOTTLE 1 DROP EYE-RIGHT ×3 (11:20→11:26)
--- NOTE | 2024-01-22 11:43 | HO.ANESPROP2 ---
HPI - Anesthesia Eval Consult details Narrative: 68 yo M presenting for right cataract extraction IOL insertion PMFSH Active Problems Active Problems: All Active Problems Pre-op evaluation (Acute) Wart viral (Acute) Osteoarthritis of right hip (Acute) Knee pain, right (Acute) Pigmented nevus (Acute) Constipation (Acute) Recurrent major depression (Acute) COVID-19 virus infection (Acute) Cognitive impairment (Acute) BPH (benign prostatic hyperplasia) (Acute) Renal lesion (Acute) Annual physical exam (Acute) Impaired glucose tolerance (Acute) PSA elevation (Acute) Renal cyst (Acute) Overweight (BMI 25.0-29.9) (Acute) Schizophrenia (Acute) Hypertension (Acute) Anemia (Acute) Constipation (Acute) Past Medical History Medical History (Updated 01/17/24 @ 14:34 by Ni Crawley RN) Hx of glaucoma Cataract Rash Halitosis Hip pain, right Tremor Renal insufficiency Hyponatremia Renal cyst Frequency of micturition TSH elevation Overweight (BMI 25.0-29.9) Hypertension Vitamin D deficiency Anemia Schizophrenia Thyroglossal duct cyst Constipation Family History Family History Father History of heart attack Hypertension CVD (cardiovascular disease) Mother History of mental problems Hypertension Paternal Grandfather Prostate cancer Maternal Grandmother No problems noted. Maternal Grandfather No problems noted. Paternal Grandmother No problems noted. Family history of problems with anesthesia: No Surgical History Surgical History (Updated 01/17/24 @ 14:33 by Ni Crawley RN) History of trabeculectomy (2001) Hx of transurethral resection of prostate (2003) History of colonoscopy History of drainage of abscess History of prostate surgery History of Problems with Anesthesia: No Social History Social History (Updated 01/17/24 @ 14:24 by Ni Crawley RN) Household Members: Spouse and Family Housing: House Are you a primary group care worker to a significant other at home: No Do you presently have visiting nurse or other home services: Yes ([employer] 9 [employer]RU [employer] sister Lucina 10/10) Alcohol intake: never Patient Tobacco Use Status: Former Tobacco user Tobacco use type: Cigarette Years Smoked: stopped 2004 Smoked in Last 30 Days: No e-Cigarette/Vaping Use: Never Used Second Hand Smoke Exposure: No Use of substances other than those prescribed or required for medical reasons: No Are you DNR?: No Advance Directives: Yes Advance Directives Information Provided: No Advance Directives on File: Yes Advance Directives Date on File: 09/23/11 Healthcare Proxy: Yes (09/23/2011) Recently lost weight without trying: No Nutrition Risks: No Nutritional Risk service: No Current occupational status: disabled Cognitive needs: Yes Hearing needs: No Vision needs: Yes Meds Allergies Allergy/AdvReac Type Severity Reaction Status Date / Time No Known Allergies Allergy Verified 01/17/24 14:22 Active Medications: Current Medications Povidone Iodine (Povidone Iodine 5 % Ophth Soln 30 Ml Bottle) 1 appl EYE-RIGHT PREOP PRN PRN Reason: Pre-Op Surgical Implant Prophy Home Medications ?Medication ?Instructions ?Recorded ?Confirmed ?Last Taken ?Type clozapine 200 mg tablet 200 mg PO BEDTIME 03/12/20 01/17/24 Unknown History divalproex 500 mg tablet,extended 500 mg PO BEDTIME 04/21/22 01/17/24 Unknown History release 24 hr clonazepam 0.5 mg tablet 0.5 mg PO DAILY 06/15/22 01/17/24 Unknown History fluphenazine decanoate 25 mg/mL 25 mg IM Q4W 04/21/23 01/17/24 Unknown History injection solution amantadine HCl 100 mg tablet 100 mg PO BID 01/17/24 01/17/24 Unknown History Exam Exam Date and Time: 01/22/24 1145 Height,Weight and Vital Signs: Height 5 ft 9 in Weight 81.42 kg Airway Mallampati Class: II TM Dist: >3cm Neck ROM: Full Denture: Upper and Lower Heart: S1S2 Lungs: CTAB Assessment and Plan Assessment Anesthesia Assessment: Anesthesia Plan Discussed and Chart Reviewed Final Anesthetic Review Family History of Problems with Anesthesia: No History of Problems with Anesthesia: No NPO: Yes ASA Class: II Final Preanesthetic Review: No Changes in Pt Med Stat, Meds/Allgs Chart Reviewed, Consent Obtained/Reviewed and Anes Risks/Benef Reviewed Patient Risk: Low Procedure Risk: Low Anesthetic Plan Anesthetic Plan: MAC: and Agree w/ Assess. and Plan Disposition: Standard PACU
--- NOTE | 2024-01-22 12:44 | MHC.SHP ---
Pre-Procedural Eval Section A - 24 Hr Update-Section A only Date of Service: 01/22/24 The patient is an INPATIENT: No Changes since office visit: No Cold of Flu in the past 2 weeks, No New Medical Problems, No Changes in Medication and No Patient answered all questions The patient has been examined within 24 hours of the surgical procedure. The History & Physical has been completed within 30 days and I have reviewed it.: Yes Section B - Complete if H&P > 30 days Chief Complaint: Age-related nuclear cataract, right eye Allergies: Allergies Allergy/AdvReac Type Severity Reaction Status Date / Time No Known Allergies Allergy Verified 01/17/24 14:22 Plan Diagnosis/Plan: Unchanged I have reviewed the history and physical and performed a pertinent physical examination on my patient. No changes have occurred unless specified. Time Spent With Patient Time: Total time managing care of this patient today ____ minutes.
--- NOTE | 2024-01-22 12:45 | P.PCNO_ITS ---
Ophthalmology Procedure Procedure Date of Service: 01/22/24 Ophthalmology Viscoelastic: Healon Duet Dual Pack Pro Ophthalmology Lenses: IOL Acrysof MP - [id number] (22) Procedure Notes: PREOPERATIVE DIAGNOSIS: Decreased visual acuity right eye secondary to cataract POSTOPERATIVE DIAGNOSIS: Same PROCEDURE: Right cataract extraction with intraocular lens insertion SURGEON: Elio Baptiste M.D. ANESTHESIA: Topical/MAC ESTIMATED BLOOD LOSS: None COMPLICATIONS: None After obtaining informed consent, the patient was brought to the operating room suite and placed in the supine position. After adequate sedation per anesthesia, topical drops of Tetracaine were given to the right eye. The eye was then prepped and draped in the usual sterile fashion. The operating room microscope was then positioned over the operative eye and a lid speculum placed. A paracentesis was created. Viscoelastic was then instilled into the anterior chamber. A three plane incision was then created temporally, utilizing a 2.85 mm keratome. Capsulotomy forceps were then utilized to create a circular tear capsulotomy. Hydrodissection and hydrodelineation were carried out until adequate mobilization of the nucleus occurred. Phacoemulsification was then utilized to remove the dense central nucl eus followed by removal of the cortical material utilizing the automated aspiration irrigation unit. Viscoelastic was instilled into the posterior capsular bag followed by placement of a posterior chamber intraocular lens without difficulty. The residual Viscoelastic was then removed utilizing the automated IA machine. The wound was checked and found to be watertight. The patient tolerated the procedure well and the lid speculum was removed. Intracameral injection of Vigamox 0.1 mL followed by a subtenon injection of Kenalog-40 0.2 mL were administered. The patient will be seen in the a.m.
[2024-01-22 13:28] VITALS: BP 144/82; PULSE 59; RESP 16; TEMP 36.1; O2SAT 100
== END 2024-01-22 13:41 | disposition home or self-care (01) ==
PROVIDERS: PCP Internal Medicine; Visit Provider Ophthalmology
PROC: (CPT 66985; principal; 2024-01-22 12:00)
DX: H25.11 Age-related nuclear cataract, right eye (principal); H54.7 Unspecified visual loss; H40.1133 Primary open-angle glaucoma, bilateral, severe stage; H11.133 Conjunctival pigmentations, bilateral; H18.413 Arcus senilis, bilateral; I10 Essential (primary) hypertension; E78.00 Pure hypercholesterolemia, unspecified; D64.9 Anemia, unspecified; E55.9 Vitamin D deficiency, unspecified; F20.9 Schizophrenia, unspecified; Z79.899 Other long term (current) drug therapy; Z88.8 Allergy status to other drugs, medicaments and biological substances; Z98.890 Other specified postprocedural states; Z87.891 Personal history of nicotine dependence
CPT/HCPCS: 66984; J2250; J3010; J3301; V2630

== ENCOUNTER 2024-01-25 14:38 | Outpatient (REF) | payer OTHER, SELFPAY ==
[2024-01-25 14:51] LABS: MANUAL DIFF FLAG NO
[2024-01-25 15:04] LABS: Basophils Percent Auto 0.3 % (0-2); Eosinophils Percent Auto 0.5 % (0-4); Hematocrit 44.4 % (42.0-52.0); Hemoglobin 14.5 g/dl (14.0-18.0); Imm Gran Abs Auto 0.03 X10*3/uL (0.00-0.03); Imm Gran Pct Auto 0.5 % (0.0-0.4); Lymphocytes Absolute Auto 1.7 X10*3/uL (1.2-4.9); Lymphocytes Percent Auto 26.2 % (20-40); Mean Corpuscular HGB Conc 32.7 g/dl (31.0-36.0); Mean Corpuscular Hemoglobin 29.8 pg (27.0-33.0); Mean Corpuscular Volume 91.2 fL (80.0-98.0); Mean Platelet Volume 10.7 fL (9.4-12.4); Monocytes Absolute Auto 0.5 X10*3/uL (0.1-1.2); Monocytes Percent Auto 7.6 % (2-11); Neutrophils Absolute Auto 4.2 x10*3/uL (2.0-8.3); Neutrophils Percent Auto 64.9 % (45-73); Platelet Count 201 X10*3/uL (160-400); Red Blood Count 4.87 X10*6/uL (4.60-5.80); Red Cell Distribution Width 13.2 % (11.0-16.0); White Blood Count 6.4 X10*3/uL (4.8-10.8)
== END 2024-01-25 14:39 | disposition home or self-care (01) ==
LOC: HO.LABR 14:38
PROVIDERS: PCP Internal Medicine; Visit Provider Nurse Practitioner
DX: Z51.81 Encounter for therapeutic drug level monitoring (principal)
CPT/HCPCS: 36415; 85025

== ENCOUNTER 2024-02-20 14:15 | Outpatient (AMB) | payer OTHER, SELFPAY ==
[2024-02-20 14:21] VITALS: BP 124/70; PULSE 74; O2SAT 99; BMI 26.7
--- NOTE | 2024-02-20 14:21 | MHC.PC.OV ---
Vital Signs 02/20/24 14:21 Height 5 ft 9 in Weight 181 lb BMI 26.7 BP 124/70 Blood Pressure Location Lt brachial Position Sitting Pulse 74 Pulse Source Pulse Oximeter Pulse Oximetry (%) 99 Oxygen Delivery Method Room Air Intake Visit Reasons: preop Allergies No Known Allergies Allergy (Verified 02/20/24 14:37) Medication List - Last Reconciled 02/20/24 by Tanya Mullen PA-C [adult pullups As directed] amantadine HCl 100 mg PO BID amlodipine 10 mg PO DAILY 90 days blood pressure monitor (Blood Pressure Kit) As directed clobetasol 0.05% 1 appl topical BID 2 weeks clonazepam 0.5 mg PO DAILY clozapine 200 mg PO BEDTIME diclofenac sodium 1% (Arthritis Pain (diclofenac)) 4 grams topical QID disposable gloves As directed divalproex ER 500 mg PO BEDTIME finasteride 5 mg PO DAILY 90 days fluphenazine decanoate 25 mg IM Q4W linaclotide (Linzess) 145 mcg PO DAILY psyllium husk (Metamucil) 1 tbsp PO DAILY sennosides-docusate sodium 8.6-50 mg (Senna with Docusate Sodium) 2 tab-caps (2 x 8.6-50 mg) PO BEDTIME tamsulosin 0.8 mg (2 x 0.4 mg) PO BEDTIME 90 days Tobacco use date assessed: 04/21/23 Fall risk assessment: No Falls in past year Last assessed Fall Risk: 02/20/24 Dental Screening Dental Screen Date: 10/30/23 HPI preop HPI Details 68-year-old overweight male with past medical history of anemia, hypertension, schizophrenia, BPH last seen by Dr. Snow October 2023 coming in for preoperative exam. Patient is scheduled to have cataract surgery with Dr. Goss 02/26/2024 for the right eye and 02/05/2024 for left eye. Hypertension: Blood pressure at goal today 124/70. Presently on amlodipine 10 mg. No history of CVA, VA, CHF, or diabetes mellitus. Patient has no acute concerns today [facility] Medical History (Updated 01/17/24 @ 14:34 by Ni Crawley RN) Hx of glaucoma Cataract Rash Halitosis Hip pain, right Tremor Renal insufficiency Hyponatremia Renal cyst Frequency of micturition TSH elevation Overweight (BMI 25.0-29.9) Hypertension Vitamin D deficiency Anemia Schizophrenia Thyroglossal duct cyst Constipation Surgical History (Updated 01/17/24 @ 14:33 by Ni Crawley RN) History of trabeculectomy (2001) Hx of transurethral resection of prostate (2003) History of colonoscopy History of drainage of abscess History of prostate surgery Family History Father History of heart attack Hypertension CVD (cardiovascular disease) Mother History of mental problems Hypertension Paternal Grandfather Prostate cancer Maternal Grandmother No problems noted. Maternal Grandfather No problems noted. Paternal Grandmother No problems noted. Social History (Updated 01/17/24 @ 14:24 by Ni Crawley RN) Household Members: Spouse and Family Housing: House Are you a primary childcare worker to a significant other at home: No Do you presently have visiting nurse or other home services: Yes (SPORTS ANALYST sister Lucina 10/10) Alcohol intake: never Patient Tobacco Use Status: Former Tobacco user Tobacco use type: Cigarette Years Smoked: stopped 2004 e-Cigarette/Vaping Use: Never Used Second Hand Smoke Exposure: No Advance Directives Date on File: 09/23/11 service: No Current occupational status: disabled Cognitive needs: Yes Hearing needs: No Vision needs: Yes Questionnaire Thrive Questionnaire Date Thrive assessed: 04/21/23 AUDIT C Alcohol Use Questionnaire (AUDIT-C) 1. How often do you have a drink containing alcohol?: Never 3. How often do you have six or more drinks on one occasion?: Never Total Score: 0 RANDEE-7 AMB Questionnaire RANDEE-7 Date RANDEE - 7 assessed: 04/21/23 Source: Developed by Drs. Shmuel Rucker, Krystal Dcik, Jeromy Watt and colleagues, with an educational farida from [employer]. Review of Systems Const Denies body aches, Denies chills, Denies fever(s), Denies headache(s) and Denies poor appetite Eyes Reports no additional complaints ENT Denies dysphagia, Denies dizziness, Denies headache(s) and Denies odynophagia Card Denies chest pain, Denies edema, Denies irregular heart rhythm, Denies lightheadedness and Denies dyspnea Resp Denies cough and Denies dyspnea GI Denies abdominal pain, Denies constipation, Denies dysphagia, Denies diarrhea, Denies nausea, Denies odynophagia and Denies vomiting Reports no additional complaints Musc Reports no additional complaints and Denies abnormal gait Skin/Breast Reports system reviewed and no additional complaints, except as documented Neuro Denies abnormal gait, Denies dizziness and Denies headache(s) Psych Reports no additional complaints Physical exam (Primary Care) Vital Signs: Oxygen Delivery Method Room Air 02/20/24 14:21 Tobacco/Smoking Status: Tobacco use Status Tobacco use date assessed 04/21/23 02/20/24 14:21 Patient Tobacco Use Status Former Tobacco user 02/20/24 14:21 Tobacco use type Cigarette 02/20/24 14:21 e-Cigarette/Vaping Use Never Used 02/20/24 14:21 Thrive Assessment: Date of Thrive Assessment Date Thrive assessed 04/21/23 02/20/24 14:21 Const General: cooperative, healthy appearing, comfortable and no acute distress Orientation/consciousness: patient oriented x3 HENMT Head: Yes normocephalic Ears: hearing grossly normal bilaterally General nose exam: Normal external nose present Eyes General: appearance normal, both eyes and all related structures Conjunctivae: conjunctivae normal Neck Neck: Yes full ROM and Yes no lymphadenopathy Resp Effort & Inspection: normal respiratory effort Auscultation: clear to auscultation bilaterally, no crackles, no rales, no rhonchi and no wheezes Cardio Rate: regular rate Rhythm: regular rhythm Skin General skin exam: no rashes or lesions noted Neuro General: patient oriented x3 Gait exam (Neuro): Normal gait present Extrem General: Yes normal to inspection, Yes full ROM and No edema Psych Affect: normal affect Attitude: cooperative Insight: Good insight present (Psych) Judgement: Good judgement present (Psych) Coding Level of Care Code Est Pt Level 3 (96116) Diagnoses Pre-op evaluation Z01.818 Assessment & Plan Assessment & Plan (1) Pre-op evaluation: Code(s): Z01.818 - Encounter for other preprocedural examination Category: Medical Plan: Regarding preop clearance, the patient is at low-moderate risk for proposed surgery due to age and history of hypertension however blood pressure is well managed at this time. Reviewed with the patient that no surgery is completely free of risk and that this examination is to assist the surgeon in reviewing informed consent. Patient is nondiabetic, takes no disease modifying drugs, and is not on any anticoagulants or NSAIDs. He has undergone surgery in the past with no complications. Blood work evaluated. No further workup needed at this time and may proceed with the contemplated procedure. Thank you very much for letting me participate in the care of this patient Plan This note was constructed using voice recognition software. While every effort has been made to ensure accuracy and umbrella tipper hand, still areas may have been included sometimes these areas may affect the content or meeting of the given symptoms. Total time spent caring for the patient today was 20 minutes. This includes time spent before the visit reviewing the chart, time spent during the visit, and time spent after the visit and documentation.
== END 2024-02-20 14:44 | disposition home or self-care (01) ==
PROVIDERS: PCP Internal Medicine
DX: Z01.818 Encounter for other preprocedural examination (principal)

== ENCOUNTER 2024-02-20 14:15 | Outpatient (REF) | payer OTHER, SELFPAY ==
[2024-02-20 15:14] LABS: MANUAL DIFF FLAG NO
[2024-02-20 15:51] LABS: Basophils Percent Auto 0.4 % (0-2); Eosinophils Percent Auto 0.4 % (0-4); Hematocrit 40.2 % (42.0-52.0); Imm Gran Abs Auto 0.02 X10*3/uL (0.00-0.03); Imm Gran Pct Auto 0.4 % (0.0-0.4); Lymphocytes Absolute Auto 1.8 X10*3/uL (1.2-4.9); Mean Corpuscular HGB Conc 32.3 g/dl (31.0-36.0); Mean Corpuscular Hemoglobin 29.5 pg (27.0-33.0); Mean Corpuscular Volume 91.2 fL (80.0-98.0); Mean Platelet Volume 10.5 fL (9.4-12.4); Monocytes Absolute Auto 0.4 X10*3/uL (0.1-1.2); Neutrophils Absolute Auto 3.4 x10*3/uL (2.0-8.3); Neutrophils Percent Auto 59.8 % (45-73); Platelet Count 216 X10*3/uL (160-400); Red Blood Count 4.41 X10*6/uL (4.60-5.80); Red Cell Distribution Width 13.4 % (11.0-16.0); White Blood Count 5.6 X10*3/uL (4.8-10.8)
== END 2024-02-20 14:16 | disposition home or self-care (01) ==
LOC: HO.LABR 14:15
PROVIDERS: PCP Internal Medicine; Referring Provider Nurse Practitioner
DX: Z01.818 Encounter for other preprocedural examination (principal); Z51.81 Encounter for therapeutic drug level monitoring
CPT/HCPCS: 36415; 85025; 99212

== ENCOUNTER 2024-02-26 06:32 | Day surgery (SDC) | payer OTHER, SELFPAY ==
[2024-02-21 10:57] VITALS: BMI 26.7
--- NOTE | 2024-02-23 08:47 | P.CONAN_ITS ---
Documented by User: Joycelyn Reyna NP 02/23/24 09:01 HPI - Anesthesia Eval Consult details Narrative: 68yo M for Left Cataract Extraction IOL Insertion s/p Right eye 01/22/24: Fent 25, Midaz 2 PMFSH Active Problems Active Problems: All Active Problems Pre-op evaluation (Acute) Wart viral (Acute) Osteoarthritis of right hip (Acute) Knee pain, right (Acute) Pigmented nevus (Acute) Constipation (Acute) Recurrent major depression (Acute) COVID-19 virus infection (Acute) Cognitive impairment (Acute) BPH (benign prostatic hyperplasia) (Acute) Renal lesion (Acute) Annual physical exam (Acute) Impaired glucose tolerance (Acute) PSA elevation (Acute) Renal cyst (Acute) Overweight (BMI 25.0-29.9) (Acute) Schizophrenia (Acute) Hypertension (Acute) Anemia (Acute) Constipation (Acute) Past Medical History Medical History (Updated 01/17/24 @ 14:34 by Ni Crawley RN) Hx of glaucoma Cataract Rash Halitosis Hip pain, right Tremor Renal insufficiency Hyponatremia Renal cyst Frequency of micturition TSH elevation Overweight (BMI 25.0-29.9) Hypertension Vitamin D deficiency Anemia Schizophrenia Thyroglossal duct cyst Constipation Family History Family History Father History of heart attack Hypertension CVD (cardiovascular disease) Mother History of mental problems Hypertension Paternal Grandfather Prostate cancer Maternal Grandmother No problems noted. Maternal Grandfather No problems noted. Paternal Grandmother No problems noted. Family history of problems with anesthesia: No Surgical History Surgical History (Updated 01/17/24 @ 14:33 by Ni Crawley RN) History of trabeculectomy (2001) Hx of transurethral resection of prostate (2003) History of colonoscopy History of drainage of abscess History of prostate surgery History of Problems with Anesthesia: No Social History Social History (Updated 01/17/24 @ 14:24 by Ni Crawley RN) Household Members: Spouse and Family Housing: House Are you a primary healthcare technician to a significant other at home: No Do you presently have visiting nurse or other home services: Yes (sister Lucina 10/10 caregiver) Alcohol intake: never Patient Tobacco Use Status: Former Tobacco user Tobacco use type: Cigarette Years Smoked: stopped 2004 e-Cigarette/Vaping Use: Never Used Second Hand Smoke Exposure: No Are you DNR?: No Advance Directives: Yes Advance Directives Information Provided: No Advance Directives on File: Yes Advance Directives Date on File: 09/23/11 service: No Current occupational status: disabled Cognitive needs: Yes Hearing needs: No Vision needs: Yes Meds Allergies Allergy/AdvReac Type Severity Reaction Status Date / Time No Known Allergies Allergy Verified 02/20/24 14:37 Home Medications ?Medication ?Instructions ?Recorded ?Confirmed ?Last Taken ?Type clozapine 200 mg tablet 200 mg PO BEDTIME 03/12/20 02/21/24 Unknown History divalproex 500 mg tablet,extended 500 mg PO BEDTIME 04/21/22 02/21/24 Unknown History release 24 hr clonazepam 0.5 mg tablet 0.5 mg PO DAILY 06/15/22 02/21/24 Unknown History fluphenazine decanoate 25 mg/mL 25 mg IM Q4W 04/21/23 02/21/24 Unknown History injection solution amantadine HCl 100 mg tablet 100 mg PO BID 01/17/24 02/21/24 Unknown History Exam Height,Weight and Vital Signs: Height 5 ft 9 in Weight 82.1 kg Assessment and Plan Assessment Anesthesia Assessment: Chart Reviewed Final Anesthetic Review Family History of Problems with Anesthesia: No History of Problems with Anesthesia: No Documented by User: Aicha Marti MD 02/26/24 07:23 REPLACED BY [facility] Past Medical History Medical History (Updated 01/17/24 @ 14:34 by Ni Crawley RN) Hx of glaucoma Cataract Rash Halitosis Hip pain, right Tremor Renal insufficiency Hyponatremia Renal cyst Frequency of micturition TSH elevation Overweight (BMI 25.0-29.9) Hypertension Vitamin D deficiency Anemia Schizophrenia Thyroglossal duct cyst Constipation Family History Family History Father History of heart attack Hypertension CVD (cardiovascular disease) Mother History of mental problems Hypertension Paternal Grandfather Prostate cancer Maternal Grandmother No problems noted. Maternal Grandfather No problems noted. Paternal Grandmother No problems noted. Surgical History Surgical History (Updated 01/17/24 @ 14:33 by Ni Crawley RN) History of trabeculectomy (2001) Hx of transurethral resection of prostate (2003) History of colonoscopy History of drainage of abscess History of prostate surgery Social History Social History (Updated 01/17/24 @ 14:24 by Ni Crawley RN) Household Members: Spouse and Family Housing: House Are you a primary healthcare technician to a significant other at home: No Do you presently have visiting nurse or other home services: Yes (sister Lucina 10/10 caregiver) Alcohol intake: never Patient Tobacco Use Status: Former Tobacco user Tobacco use type: Cigarette Years Smoked: stopped 2004 e-Cigarette/Vaping Use: Never Used Second Hand Smoke Exposure: No Are you DNR?: No Advance Directives: Yes Advance Directives Information Provided: No Advance Directives on File: Yes Advance Directives Date on File: 09/23/11 service: No Current occupational status: disabled Cognitive needs: Yes Hearing needs: No Vision needs: Yes Meds Allergies Allergy/AdvReac Type Severity Reaction Status Date / Time No Known Allergies Allergy Verified 02/20/24 14:37 Home Medications ?Medication ?Instructions ?Recorded ?Confirmed ?Last Taken ?Type clozapine 200 mg tablet 200 mg PO BEDTIME 03/12/20 02/21/24 Unknown History divalproex 500 mg tablet,extended 500 mg PO BEDTIME 04/21/22 02/21/24 Unknown History release 24 hr clonazepam 0.5 mg tablet 0.5 mg PO DAILY 06/15/22 02/21/24 Unknown History fluphenazine decanoate 25 mg/mL 25 mg IM Q4W 04/21/23 02/21/24 Unknown History injection solution amantadine HCl 100 mg tablet 100 mg PO BID 01/17/24 02/21/24 Unknown History Exam Airway Mallampati Class: II TM Dist: >3cm Neck ROM: Full Denture: Upper and Lower Heart: rrr Lungs: cta Assessment and Plan Assessment Anesthesia Assessment: Anesthesia Plan Discussed Final Anesthetic Review NPO: Yes ASA Class: II Final Preanesthetic Review: No Changes in Pt Med Stat, Meds/Allgs Chart Reviewed and Consent Obtained/Reviewed Patient Risk: Low Procedure Risk: Low Anesthetic Plan Anesthetic Plan: MAC: Disposition: Standard PACU
[2024-02-26 07:06] VITALS: BP 131/87; PULSE 78; RESP 16; TEMP 36.6; O2SAT 94
[2024-02-26] MEDS: Tetracaine HCl/PF 0.5% Oph Sol 4 ML DROPS 1 DROP EYE-LEFT (07:11)
[2024-02-26] MEDS: Lactated Ringers 500 ML 50 ML IV (07:13)
[2024-02-26] MEDS: Cyclopentolate 1 % Ophth Sol 2 ML DRPBTL 1 DROP EYE-LEFT ×3 (07:14→07:24)
[2024-02-26] MEDS: Tropicamide 1 % Ophth Sol 3 ML BTL 1 DROP EYE-LEFT ×3 (07:15→07:24)
[2024-02-26] MEDS: Ketorolac Tromethamine 0.5% Op 10 ML DROPS 1 DROP EYE-LEFT ×3 (07:17→07:25)
[2024-02-26] MEDS: Phenylephrine HCL 2.5% Oph SoL 2 ML BOTTLE 1 DROP EYE-LEFT ×3 (07:18→07:31)
--- NOTE | 2024-02-26 08:01 | MHC.SHP ---
Pre-Procedural Eval Section A - 24 Hr Update-Section A only Date of Service: 02/26/24 The patient is an INPATIENT: No Changes since office visit: No Cold of Flu in the past 2 weeks, No New Medical Problems, No Changes in Medication and No Patient answered all questions The patient has been examined within 24 hours of the surgical procedure. The History & Physical has been completed within 30 days and I have reviewed it.: Yes Section B - Complete if H&P > 30 days Chief Complaint: Age-related nuclear cataract, left eye Allergies: Allergies Allergy/AdvReac Type Severity Reaction Status Date / Time No Known Allergies Allergy Verified 02/20/24 14:37 Plan Diagnosis/Plan: Unchanged I have reviewed the history and physical and performed a pertinent physical examination on my patient. No changes have occurred unless specified. Time Spent With Patient Time: Total time managing care of this patient today ____ minutes.
--- NOTE | 2024-02-26 08:02 | HO.PNOPHT ---
Ophthalmology Procedure Procedure Date of Service: 02/26/24 Ophthalmology Viscoelastic: Healon Duet Dual Pack Pro Ophthalmology Lenses: IOL Acrysof MP - [id number] (19.5) Procedure Notes: PREOPERATIVE DIAGNOSIS: Decreased visual acuity left eye secondary to cataract POSTOPERATIVE DIAGNOSIS: Same PROCEDURE: Left cataract extraction with intraocular lens insertion SURGEON: Elio Baptiste M.D. ANESTHESIA: Topical/MAC ESTIMATED BLOOD LOSS: None COMPLICATIONS: None After obtaining informed consent, the patient was brought to the operation room suite and placed in the supine position. After adequate sedation per anesthesia, topical drops of Tetracaine were given to the left eye. The eye was then prepped and draped in the usual sterile fashion. The operating room microscope was then positioned over the operative eye and a lid speculum placed. A paracentesis was created. Viscoelastic was then instilled into the anterior chamber. A three plane incision was then created temporally, utilizing a 2.85 mm keratome. Capsulotomy forceps were then utilized to create a circular tear capsulotomy. Hydrodissection and hydrodelineation were carried out until adequate mobilization of the nucleus occurred. Phacoemulsification was then utilized to remove the dense central nucleus followed by removal of the cortical material utilizing the automated aspiration irrigation unit. Viscoat elastic was instilled into the posterior capsular bag followed by placement of a posterior chamber intraocular lens without difficulty. The residual Viscoat elastic was then removed utilizing the automated IA machine. The wound was check and found to be watertight. The patient tolerated the procedure well and the lid speculum was removed. Intracameral injection of Vigamox 0.1 mL followed by a subtenon injection of Kenalog-40 0.2 mL were administered. The patient will be seen in the a.m.
[2024-02-26 08:29] VITALS: BP 136/91; PULSE 69; RESP 16; TEMP 36.4; O2SAT 98
== END 2024-02-26 08:37 | disposition home or self-care (01) ==
PROVIDERS: PCP Internal Medicine; Visit Provider Ophthalmology
PROC: (CPT 66985; principal; 2024-02-26 08:00)
DX: H25.12 Age-related nuclear cataract, left eye (principal); H54.7 Unspecified visual loss; Z83.511 Family history of glaucoma; H40.1133 Primary open-angle glaucoma, bilateral, severe stage; H11.153 Pinguecula, bilateral; H11.133 Conjunctival pigmentations, bilateral; H18.413 Arcus senilis, bilateral; I10 Essential (primary) hypertension; E78.00 Pure hypercholesterolemia, unspecified; D64.9 Anemia, unspecified; E55.9 Vitamin D deficiency, unspecified; N40.0 Benign prostatic hyperplasia without lower urinary tract symptoms; N28.1 Cyst of kidney, acquired; F20.9 Schizophrenia, unspecified; Z79.899 Other long term (current) drug therapy; Z88.8 Allergy status to other drugs, medicaments and biological substances; Z98.890 Other specified postprocedural states; Z87.891 Personal history of nicotine dependence
CPT/HCPCS: 66984; J2250; J3010; J3301; V2630

== ENCOUNTER 2024-03-25 07:08 | Outpatient (REF) | payer OTHER, SELFPAY ==
[2024-03-25 07:26] LABS: MANUAL DIFF FLAG NO
[2024-03-25 08:22] LABS: Basophils Percent Auto 0.2 % (0-2); Eosinophils Absolute Auto 0.1 X10*3/uL (0.0-0.4); Eosinophils Percent Auto 0.9 % (0-4); Hematocrit 40.2 % (42.0-52.0); Hemoglobin 13.1 g/dl (14.0-18.0); Imm Gran Abs Auto 0.03 X10*3/uL (0.00-0.03); Imm Gran Pct Auto 0.5 % (0.0-0.4); Lymphocytes Absolute Auto 2.1 X10*3/uL (1.2-4.9); Lymphocytes Percent Auto 36.8 % (20-40); Mean Corpuscular HGB Conc 32.6 g/dl (31.0-36.0); Mean Corpuscular Hemoglobin 29.6 pg (27.0-33.0); Mean Corpuscular Volume 90.7 fL (80.0-98.0); Mean Platelet Volume 10.6 fL (9.4-12.4); Monocytes Absolute Auto 0.7 X10*3/uL (0.1-1.2); Monocytes Percent Auto 11.5 % (2-11); Neutrophils Absolute Auto 2.9 x10*3/uL (2.0-8.3); Neutrophils Percent Auto 50.1 % (45-73); Platelet Count 213 X10*3/uL (160-400); Red Blood Count 4.43 X10*6/uL (4.60-5.80); Red Cell Distribution Width 13.4 % (11.0-16.0); White Blood Count 5.7 X10*3/uL (4.8-10.8)
== END 2024-03-25 07:09 | disposition home or self-care (01) ==
LOC: HO.LABR 07:08
PROVIDERS: PCP Internal Medicine; Visit Provider Nurse Practitioner
DX: Z51.81 Encounter for therapeutic drug level monitoring (principal)
CPT/HCPCS: 36415; 85025

== ENCOUNTER 2024-04-15 07:13 | Outpatient (REF) | payer OTHER, SELFPAY ==
[2024-04-15 07:22] LABS: MANUAL DIFF FLAG NO
[2024-04-15 07:42] LABS: Basophils Percent Auto 0.5 % (0-2); Eosinophils Absolute Auto 0.1 X10*3/uL (0.0-0.4); Eosinophils Percent Auto 1.1 % (0-4); Hematocrit 41.2 % (42.0-52.0); Hemoglobin 13.8 g/dl (14.0-18.0); Imm Gran Abs Auto 0.02 X10*3/uL (0.00-0.03); Imm Gran Pct Auto 0.4 % (0.0-0.4); Lymphocytes Absolute Auto 2.2 X10*3/uL (1.2-4.9); Lymphocytes Percent Auto 38.6 % (20-40); Mean Corpuscular HGB Conc 33.5 g/dl (31.0-36.0); Mean Corpuscular Hemoglobin 30.1 pg (27.0-33.0); Mean Platelet Volume 9.9 fL (9.4-12.4); Monocytes Absolute Auto 0.6 X10*3/uL (0.1-1.2); Monocytes Percent Auto 10.4 % (2-11); Neutrophils Absolute Auto 2.8 x10*3/uL (2.0-8.3); Platelet Count 209 X10*3/uL (160-400); Red Blood Count 4.58 X10*6/uL (4.60-5.80); Red Cell Distribution Width 13.3 % (11.0-16.0); White Blood Count 5.7 X10*3/uL (4.8-10.8)
[2024-04-15 08:41] LABS: Prostate Specific Antigen 1.04 ng/mL (<0.05-4.0)
== END 2024-04-15 07:14 | disposition home or self-care (01) ==
LOC: HO.LAB 07:13
PROVIDERS: Absent Provider Nurse Practitioner; PCP Internal Medicine; Visit Provider Urology
DX: Z51.81 Encounter for therapeutic drug level monitoring (principal); N40.1 Benign prostatic hyperplasia with lower urinary tract symptoms; Z12.5 Encounter for screening for malignant neoplasm of prostate
CPT/HCPCS: 36415; 84153; 85025

== ENCOUNTER 2024-04-23 09:40 | Outpatient (AMB) | payer OTHER, SELFPAY ==
--- NOTE | 2024-04-23 09:42 | MHC.OFFVIS ---
Intake Visit Reasons: 1Y PSA/PVR(Set) Intake Note: Patient is Present for 1Y Follow Up PSA/PVR Urology Medication: Finasteride, Tamsulosin Antibiotic Allergies: None Blood Thinners: None PVR: 0ML'S TODAY'S PVR:29ML'S Director Banking Required: No Allergies No Known Allergies Allergy (Verified 04/23/24 09:43) HPI Comments Details: Antonio is a very pleasant male. He is seen for following urologic conditions - lower urinary tract symptoms Hong Konger translation provided by his LEADERSHIP DEVELOPMENT MANAGER Yearly follow-up Low PSA maintained Effective voiding - PVR less than 60 cc Stable renal cyst Continue combination therapy Lower urinary tract symptoms Ongoing Postvoid residual down from 250 to 40 5 cc Therapy - combination therapy finasteride and Flomax 0.8 Laboratories - 02/06 PSA 5.2, 05/10 6.3, 09/07 2.6, 04/10 1.4, 04/11 1.3, 04/12 1.1 Renal cyst Imaging - 04/09 RENAL ULTRASOUND BILATERAL CYSTS MAXIMUM 3.6 CM RIGHT, 2.8 CM LEFT - 04/10 renal ultrasound numerous bilateral cysts unchanged in size - 04/11 renal ultrasound bilateral Bosniak 1 cyst no follow-up recommended [facility] Medical History (Updated 04/23/24 @ 10:14 by Tyrese Forman MD) Hx of glaucoma Cataract Rash Halitosis Hip pain, right Tremor Renal insufficiency Hyponatremia Renal cyst Frequency of micturition TSH elevation Overweight (BMI 25.0-29.9) Hypertension Vitamin D deficiency Anemia Schizophrenia Thyroglossal duct cyst Constipation Surgical History (Updated 01/17/24 @ 14:33 by Ni Crawley RN) History of trabeculectomy (2001) Hx of transurethral resection of prostate (2003) History of colonoscopy History of drainage of abscess History of prostate surgery Family History Father History of heart attack Hypertension CVD (cardiovascular disease) Mother History of mental problems Hypertension Paternal Grandfather Prostate cancer Maternal Grandmother No problems noted. Maternal Grandfather No problems noted. Paternal Grandmother No problems noted. Social History (Updated 01/17/24 @ 14:24 by Ni Crawley RN) Household Members: Spouse and Family Housing: House Are you a primary home care physical therapist to a significant other at home: No Do you presently have visiting nurse or other home services: Yes (sister Lucina 10/10 caregiver) Alcohol intake: never Patient Tobacco Use Status: Former Tobacco user Tobacco use type: Cigarette Years Smoked: stopped 2004 e-Cigarette/Vaping Use: Never Used Second Hand Smoke Exposure: No Advance Directives Date on File: 09/23/11 service: No Current occupational status: disabled Cognitive needs: Yes Hearing needs: No Vision needs: Yes Review of Systems Const Denies chills and Denies fever(s) Card Reports no additional complaints and Denies syncope Resp Denies cough GI Denies abdominal pain and Denies heartburn Reports as per HPI and Denies change in libido Neuro Denies syncope Psych Denies change in libido Endo Denies change in libido Physical Exam Const General: cooperative, healthy appearing, comfortable and no acute distress Orientation/consciousness: patient oriented x3 HEENT Face and sinus: Yes normal facial exam Mouth: moist mucous membranes Neck Neck: Yes normal visual inspection, Yes full ROM and Yes trachea midline Chest Chest palpation & inspection: normal inspection of the chest Resp Effort & Inspection: normal respiratory effort, able to speak in complete sentences and no respiratory distress GI Inspection: Yes normal to inspection Back/Spine/Pelvis Cervical Spine: normal cervical lordosis Thoracic/Lumbar Spine: thoracic and lumbar spine normal to inspection Skin General skin exam: no rashes or lesions noted Neuro General: patient oriented x3, gait normal, tone normal and moves all extremities Extrem General: Yes normal to inspection and Yes capillary refill normal Office Procedures Post Void Residual Post Residual Void Post Void Residual (PVR): 29 [id number] Void Residual by ultrasound Results AMB Urinalysis, Automated UA Leukoctes 0 Silvia/uL Last Edit by MELISSA Norris on 04/23/24 09:53 UA Nitrite Negative Last Edit by MELISSA Norris on 04/23/24 09:53 UA Urobilinogen 0.2 mg/dL Last Edit by MELISSA Norris on 04/23/24 09:53 UA Protein 15 mg/dL Last Edit by MELISSA Norris on 04/23/24 09:53 UA pH 6.0 Last Edit by MELISSA Norris on 04/23/24 09:53 UA Blood 0 Booker/uL Last Edit by MELISSA Norris on 04/23/24 09:53 UA Specific [place] 1.020 Last Edit by MELISSA Norris on 04/23/24 09:53 UA Ketone Negative Last Edit by MELISSA Norris on 04/23/24 09:53 UA Bilirubin 0 mg/dL Last Edit by MELISSA Norris on 04/23/24 09:53 UA Glucose 0 mg/dL Last Edit by MELISSA Norris on 04/23/24 09:53 Results Reviewed Results Reviewed: Laboratory Last Values Urine pH (Auto) 6.0 04/23/24 09:53 Specific [place] (Auto) 1.020 04/23/24 09:53 Urine Protein (Auto) 15 mg/dL 04/23/24 09:53 Glucose (UA)(Auto) 0 mg/dL 04/23/24 09:53 Urine Ketones (Auto) Negative 04/23/24 09:53 Urine Blood (Auto) 0 Booker/uL 04/23/24 09:53 Urine Nitrite (Auto) Negative 04/23/24 09:53 Urine Bilirubin (Auto) 0 mg/dL 04/23/24 09:53 Urine Urobilinogen (Auto) 0.2 mg/dL 04/23/24 09:53 Leukocyte Esterase (Auto) 0 Silvia/uL 04/23/24 09:53 Assessment & Plan Assessment & Plan (1) BPH (benign prostatic hyperplasia): Code(s): N40.0 - Benign prostatic hyperplasia without lower urinary tract symptoms Category: Medical Qualifiers: Lower urinary tract symptom presence: symptoms present Lower urinary tract symptom detail: urinary retention Qualified Code(s): N40.1 - Benign prostatic hyperplasia with lower urinary tract symptoms; R33.8 - Other retention of urine (2) Nocturia more than twice per night: Code(s): R35.1 - Nocturia Category: Medical Plan Continue current medications Orders: Orders AMB Urinalysis Automated Today Z13.9 - Encounter for screening, unspecified Patient Instructions: This note is constructed using voice recognition software. While every effort has been made to ensure accuracy questioned documents examiner errors may have been included. Imaging studies, laboratory and physical exam results were discussed and reviewed in detail. No major barriers to patient understanding were identified. An opportunity to ask questions regarding the treatment plan was provided. All questions were answered. The patient expressed understanding and agreement with the above treatment plan. The patient is aware they should contact our office by phone for worsening of their current condition or the appearance of new urologic symptoms. Compliance is encouraged with any medications and followup testing that is ordered. It is a privilege to participate in the urologic care of your patient. If you have any questions or concerns regarding treatment for the above conditions, or other urologic issues, please do not hesitate to contact me. The office telephone contact is [phone]. Sincerely, Dr Tyrese Forman MD, [facility] [place] - Urology Compassionate Specialist Care for the Genitourinary System Coding Level of Care Code Est Pt Level 4 (01758) Diagnoses Benign prostatic hyperplasia with urinary retention N40.1; R33.8 Lower urinary tract symptom presence: symptoms present Lower urinary tract symptom detail: urinary retention Nocturia more than twice per night R35.1 CPT Codes Post Residual Void - PVR CPT Code: 33226-[id number] Void Residual by ultrasound ([id number])
== END 2024-04-23 10:15 | disposition home or self-care (01) ==
PROVIDERS: PCP Internal Medicine; Visit Provider Urology
DX: N40.1 Benign prostatic hyperplasia with lower urinary tract symptoms (principal); R33.8 Other retention of urine; R35.1 Nocturia; Z13.9 Encounter for screening, unspecified
CPT/HCPCS: 99214

== ENCOUNTER → 2024-04-23 09:40 | Outpatient (BNVA) | payer OTHER, SELFPAY | PROVIDERS: PCP Internal Medicine; Visit Provider Urology | DX: N40.1 Benign prostatic hyperplasia with lower urinary tract symptoms (principal); R33.8 Other retention of urine; R35.1 Nocturia | CPT/HCPCS: 51798; 81003; 99212 ==

== ENCOUNTER → 2024-04-26 10:13 | Outpatient (BNVA) | payer OTHER, SELFPAY | PROVIDERS: PCP Internal Medicine; Visit Provider Internal Medicine | DX: Z00.00 Encounter for general adult medical examination without abnormal findings (principal); I10 Essential (primary) hypertension; D64.9 Anemia, unspecified; R73.02 Impaired glucose tolerance (oral); N40.1 Benign prostatic hyperplasia with lower urinary tract symptoms; R33.8 Other retention of urine; F33.9 Major depressive disorder, recurrent, unspecified; G25.0 Essential tremor | CPT/HCPCS: 96127; 99397 ==

== ENCOUNTER 2024-05-20 16:05 | Outpatient (REF) | payer OTHER, SELFPAY ==
[2024-05-20 16:19] LABS: MANUAL DIFF FLAG NO
[2024-05-20 16:41] LABS: Basophils Percent Auto 0.3 % (0-2); Eosinophils Absolute Auto 0.1 X10*3/uL (0.0-0.4); Eosinophils Percent Auto 0.9 % (0-4); Hematocrit 40.8 % (42.0-52.0); Hemoglobin 13.7 g/dl (14.0-18.0); Imm Gran Abs Auto 0.03 X10*3/uL (0.00-0.03); Imm Gran Pct Auto 0.5 % (0.0-0.4); Lymphocytes Absolute Auto 2.3 X10*3/uL (1.2-4.9); Lymphocytes Percent Auto 35.6 % (20-40); Mean Corpuscular HGB Conc 33.6 g/dl (31.0-36.0); Mean Corpuscular Hemoglobin 30.6 pg (27.0-33.0); Mean Corpuscular Volume 91.3 fL (80.0-98.0); Mean Platelet Volume 10.3 fL (9.4-12.4); Monocytes Absolute Auto 0.7 X10*3/uL (0.1-1.2); Monocytes Percent Auto 10.2 % (2-11); Neutrophils Absolute Auto 3.3 x10*3/uL (2.0-8.3); Neutrophils Percent Auto 52.5 % (45-73); Platelet Count 209 X10*3/uL (160-400); Red Blood Count 4.47 X10*6/uL (4.60-5.80); Red Cell Distribution Width 13.2 % (11.0-16.0); White Blood Count 6.4 X10*3/uL (4.8-10.8)
== END 2024-05-20 16:06 | disposition home or self-care (01) ==
LOC: HO.LABR 16:05
PROVIDERS: PCP Internal Medicine; Visit Provider Nurse Practitioner
DX: Z51.81 Encounter for therapeutic drug level monitoring (principal)
CPT/HCPCS: 36415; 85025

== ENCOUNTER 2024-06-19 07:03 | Outpatient (REF) | payer OTHER, SELFPAY ==
[2024-06-19 07:16] LABS: MANUAL DIFF FLAG NO
[2024-06-19 07:41] LABS: Basophils Percent Auto 0.3 % (0-2); Eosinophils Percent Auto 0.5 % (0-4); Hemoglobin 12.8 g/dl (14.0-18.0); Imm Gran Abs Auto 0.03 X10*3/uL (0.00-0.03); Imm Gran Pct Auto 0.5 % (0.0-0.4); Lymphocytes Absolute Auto 2.6 X10*3/uL (1.2-4.9); Lymphocytes Percent Auto 44.1 % (20-40); Mean Corpuscular HGB Conc 33.7 g/dl (31.0-36.0); Mean Corpuscular Hemoglobin 30.3 pg (27.0-33.0); Mean Corpuscular Volume 89.8 fL (80.0-98.0); Mean Platelet Volume 10.4 fL (9.4-12.4); Monocytes Absolute Auto 0.6 X10*3/uL (0.1-1.2); Monocytes Percent Auto 10.1 % (2-11); Neutrophils Absolute Auto 2.7 x10*3/uL (2.0-8.3); Neutrophils Percent Auto 44.5 % (45-73); Platelet Count 226 X10*3/uL (160-400); Red Blood Count 4.23 X10*6/uL (4.60-5.80)
== END 2024-06-19 07:04 | disposition home or self-care (01) ==
LOC: HO.LABR 07:03
PROVIDERS: PCP Nurse Practitioner; Visit Provider Internal Medicine
DX: Z79.899 Other long term (current) drug therapy (principal)
CPT/HCPCS: 36415; 85025

== ENCOUNTER 2024-08-14 10:00 | Outpatient (REF) | payer OTHER, SELFPAY ==
[2024-08-14 10:14] LABS: MANUAL DIFF FLAG NO
[2024-08-14 10:42] LABS: Basophils Percent Auto 0.2 % (0-2); Eosinophils Absolute Auto 0.1 X10*3/uL (0.0-0.4); Eosinophils Percent Auto 1.3 % (0-4); Hematocrit 41.8 % (42.0-52.0); Hemoglobin 13.9 g/dl (14.0-18.0); Imm Gran Abs Auto 0.01 X10*3/uL (0.00-0.03); Imm Gran Pct Auto 0.2 % (0.0-0.4); Lymphocytes Absolute Auto 2.1 X10*3/uL (1.2-4.9); Lymphocytes Percent Auto 40.7 % (20-40); Mean Corpuscular HGB Conc 33.3 g/dl (31.0-36.0); Mean Corpuscular Hemoglobin 30.1 pg (27.0-33.0); Mean Corpuscular Volume 90.5 fL (80.0-98.0); Monocytes Absolute Auto 0.7 X10*3/uL (0.1-1.2); Monocytes Percent Auto 12.4 % (2-11); Neut%MD 45.2 %; Neutrophils Absolute Auto 2.4 x10*3/uL (2.0-8.3); Neutrophils Percent Auto 45.2 % (45-73); Platelet Count 186 X10*3/uL (160-400); Red Blood Count 4.62 X10*6/uL (4.60-5.80); Red Cell Distribution Width 13.2 % (11.0-16.0); WBCANC 5.3 X10*3/uL; White Blood Count 5.3 X10*3/uL (4.8-10.8)
== END 2024-08-14 10:01 | disposition home or self-care (01) ==
LOC: HO.LABR 10:00
PROVIDERS: PCP Internal Medicine; Visit Provider Nurse Practitioner
DX: Z51.81 Encounter for therapeutic drug level monitoring (principal)
CPT/HCPCS: 36415; 85025

== ENCOUNTER 2024-09-14 10:21 | Outpatient (REF) | payer OTHER, SELFPAY ==
--- OUTSIDE RECORDS SUMMARY | 2024-09-14 10:24 | XMS_ITS | Patient Health Record ---
Author Organization [facility] Address [address] [place] [address] Care Team Providers Care Real Estate Transaction Manager Name Role Phone Ron Snow MD Primary Care Provider James Figueroa Jr Unavailable Reason For Referral No Information Medications Medication SIG (Take, Route, Frequency, Duration) Notes Start Date End Date Status cloZAPine 100 MG 1 tablet Orally Once a day Active Benztropine Mesylate 1 MG 1 tablet at be dtime Orally Once a day for 30 day(s) Active Lactulose 10 GM 1 packet Orally Once a day Active amLODIPine Besylate 5 MG 1 tablet Orally Once a day Active Invega Sustenna 117 MG/0.75ML as directed Intramuscular every 4 weeks Active Immunizations Vaccine Route Administration Date Status Comme nts Influenza Unknown 02/21/2018 Administered Social History Tobacco Use: Social History Observation Description Date Details (start date - stop date) Former Smoker NA - NA Tobacco Use/Smoking Question Answer Notes Patient is a former smoker How long has it been since you last smoked? > 10 years Alcohol Screen Question Answer Notes Did you have a drink containing alcohol in the p ast year? No Points 0 Interpretation Negative Problems Problem Type SNOMED Code ICD Code Onset Dates Problem Status W/U Status Risk Notes Problem [id number] Constipation, unspecified constipation type (K59.00) Active confirmed Plan Of Treatment No Information Insurance Providers Payer Name Payer Address Payer Phone Subscriber Number Group Number Insured Name Patient Relationship to Insured Coverage Start Date Coverage End Date [facility] [employer] Plan [address] [address] [place], [place] [id number] [phone] [id number] RAYNA POLANCO Self - patient is the insured Medical (General) History Medical History History ICD Code hypertension e glaucoma schizophrenia Surgical History Surgery Date(Month/Year) prostate surgery eye surgery cyst removal
[2024-09-14 10:36] LABS: MANUAL DIFF FLAG NO
[2024-09-14 11:18] LABS: Basophils Percent Auto 0.4 % (0-2); Eosinophils Absolute Auto 0.1 X10*3/uL (0.0-0.4); Eosinophils Percent Auto 1.3 % (0-4); Hemoglobin 13.6 g/dl (14.0-18.0); Imm Gran Abs Auto 0.02 X10*3/uL (0.00-0.03); Imm Gran Pct Auto 0.4 % (0.0-0.4); Lymphocytes Absolute Auto 1.8 X10*3/uL (1.2-4.9); Lymphocytes Percent Auto 31.8 % (20-40); Mean Corpuscular HGB Conc 33.2 g/dl (31.0-36.0); Mean Corpuscular Hemoglobin 29.8 pg (27.0-33.0); Mean Corpuscular Volume 89.7 fL (80.0-98.0); Mean Platelet Volume 10.4 fL (9.4-12.4); Monocytes Absolute Auto 0.5 X10*3/uL (0.1-1.2); Monocytes Percent Auto 9.2 % (2-11); Neutrophils Absolute Auto 3.2 x10*3/uL (2.0-8.3); Neutrophils Percent Auto 56.9 % (45-73); Platelet Count 236 X10*3/uL (160-400); Red Blood Count 4.57 X10*6/uL (4.60-5.80); Red Cell Distribution Width 13.1 % (11.0-16.0); White Blood Count 5.6 X10*3/uL (4.8-10.8)
[2024-09-14 12:14] LABS: Alanine Aminotransferase 24 U/L (0-40); Albumin Level 4.6 g/dL (3.5-5.0); Alkaline Phosphatase 88 U/L (39-117); Anion Gap 13 (12-20); Aspartate Amino Transferase 28 U/L (5-37); Bilirubin Total 0.6 mg/dL (0.0-1.0); Blood Urea Nitrogen 18 mg/dL (9-16); Calcium 9.1 mg/dL (8.4-10.2); Carbon Dioxide 24 mmol/L (22-29); Chloride 104 mmol/L (96-108); Cholesterol 176 mg/dL (<200); Estimated Glomerular Filt Rate > 60; Glucose Random 107 mg/dL (60-115); HDL Cholesterol 42 mg/dL (>40); LDL Cholesterol Calculated 112 mg/dL (<100); Potassium 4.1 mmol/L (3.3-5.1); Sodium 137 mmol/L (135-145); Total Protein 7.7 g/dL (6.5-8.0); Triglycerides 110 mg/dL (<150)
[2024-09-14 12:24] LABS: Free T4 (Free Thyroxine) 1.15 ng/dL (0.71-1.85); Thyroid Stimulating Hormone 2.92 uIU/mL (0.32-4.0)
[2024-09-14 12:35] LABS: Folate 9.7 ng/mL (> or = 4.0); Prostate Specific Antigen Scr 1.06 ng/mL (<0.05-4.0); Vitamin B12 541 pg/mL (200-900)
== END 2024-09-14 10:22 | disposition home or self-care (01) ==
LOC: HO.LABR 10:21
PROVIDERS: PCP Internal Medicine; Visit Provider Nurse Practitioner
DX: E78.00 Pure hypercholesterolemia, unspecified (principal); R97.20 Elevated prostate specific antigen [PSA]
CPT/HCPCS: 36415; 80053; 80061; 82607; 82746; 84153; 84439; 84443; 85025

== ENCOUNTER 2024-10-22 08:14 | Outpatient (REF) | payer OTHER, SELFPAY ==
--- OUTSIDE RECORDS SUMMARY | 2024-10-22 08:22 | XMS_ITS | Patient Health Record ---
Author Organization [facility] Address [address] [place] [address] Care Team Providers Care [facility] Consultant Name Role Phone Ron Snow MD Primary Care Provider James Figueroa Jr Unavailable [phone] Reason For Referral No Information Medications Medication [...] Problem Status W/U Status Risk Notes Problem [id number] Constipation, unspecified constipation type (K59.00) Active confirmed Plan Of Treatment No Information Insurance Providers Payer Name Payer Address Payer Phone Subscriber Number Group Number Insured Name Patient Relationship to Insured Coverage Start Date Coverage End Date [facility] [employer] Plan [address] [address] [place], [place] [id number] [phone] [id number] RAYNA POLANCO Self - patient is the insured Medical (General) History Medical History History ICD Code hypertension e glaucoma schizophrenia Surgical History Surgery Date(Month/Year) prostate surgery eye surgery cyst removal
[2024-10-22 08:26] LABS: MANUAL DIFF FLAG NO
[2024-10-22 08:42] LABS: Hematocrit 39.9 % (42.0-52.0); Hemoglobin 13.4 g/dl (14.0-18.0); Imm Gran Abs Auto 0.01 X10*3/uL (0.00-0.03); Imm Gran Pct Auto 0.2 % (0.0-0.4); Lymphocytes Absolute Auto 2.0 X10*3/uL (1.2-4.9); Mean Corpuscular HGB Conc 33.6 g/dl (31.0-36.0); Mean Corpuscular Hemoglobin 30.0 pg (27.0-33.0); Mean Corpuscular Volume 89.3 fL (80.0-98.0); NRBC Abs Auto 0.000 X10*3/uL (0.0-0.012); NRBC Pct Auto 0.0 /100WBC (0.0-0.2); Platelet Count 229 X10*3/uL (160-400); Red Blood Count 4.47 X10*6/uL (4.60-5.80); White Blood Count 5.1 X10*3/uL (4.8-10.8)
== END 2024-10-22 08:15 | disposition home or self-care (01) ==
LOC: HO.LABR 08:14
PROVIDERS: PCP Internal Medicine; Visit Provider Nurse Practitioner
DX: Z51.81 Encounter for therapeutic drug level monitoring (principal)
CPT/HCPCS: 36415; 85025

== ENCOUNTER 2024-10-28 09:00 | Outpatient (REF) | payer OTHER, SELFPAY ==
--- OUTSIDE RECORDS SUMMARY | 2024-10-28 09:22 | XMS_ITS | Patient Health Record ---
Author Organization [facility] Address [address] [place] [address] Care Team Providers Care Radio Host Name Role Phone Ron Snow MD Primary Care Provider James Figueroa Jr Unavailable [phone] Reason For Referral No Information Medications Medication [...] Problem Status W/U Status Risk Notes Problem [id number] Constipation, unspecified constipation type (K59.00) Active confirmed Plan Of Treatment No Information Insurance Providers Payer Name Payer Address Payer Phone Subscriber Number Group Number Insured Name Patient Relationship to Insured Coverage Start Date Coverage End Date [facility] [employer] Plan [address] [address] [place], [place] [id number] [phone] [id number] RAYNA POLANCO Self - patient is the insured Medical (General) History Medical History History ICD Code hypertension e glaucoma schizophrenia Surgical History Surgery Date(Month/Year) prostate surgery eye surgery cyst removal
[2024-10-28 09:23] LABS: MANUAL DIFF FLAG NO
[2024-10-28 09:35] LABS: Hematocrit 41.4 % (42.0-52.0); Hemoglobin 13.9 g/dl (14.0-18.0); Imm Gran Abs Auto 0.02 X10*3/uL (0.00-0.03); Imm Gran Pct Auto 0.4 % (0.0-0.4); Lymphocytes Absolute Auto 2.0 X10*3/uL (1.2-4.9); Mean Corpuscular HGB Conc 33.6 g/dl (31.0-36.0); Mean Corpuscular Hemoglobin 30.3 pg (27.0-33.0); Mean Corpuscular Volume 90.2 fL (80.0-98.0); NRBC Abs Auto 0.000 X10*3/uL (0.0-0.012); NRBC Pct Auto 0.0 /100WBC (0.0-0.2); Platelet Count 211 X10*3/uL (160-400); Red Blood Count 4.59 X10*6/uL (4.60-5.80); White Blood Count 5.6 X10*3/uL (4.8-10.8)
[2024-10-28 10:06] LABS: Hemoglobin A1C 149.7670 umol/L; Total Hemoglobin (HGBA1C) 3698.5623 umol/L
[2024-10-28 10:29] LABS: Alanine Aminotransferase 22 U/L (0-40); Albumin Level 4.4 g/dL (3.5-5.0); Alkaline Phosphatase 88 U/L (39-117); Anion Gap 9 (12-20); Aspartate Amino Transferase 26 U/L (5-37); Blood Urea Nitrogen 15 mg/dL (9-16); Calcium 9.1 mg/dL (8.4-10.2); Carbon Dioxide 26 mmol/L (22-29); Chloride 107 mmol/L (96-108); Cholesterol 176 mg/dL (<200); Estimated Glomerular Filt Rate > 60; HDL Cholesterol 42 mg/dL (>40); Potassium 4.3 mmol/L (3.3-5.1); Sodium 138 mmol/L (135-145); Total Protein 7.6 g/dL (6.5-8.0); Triglycerides 97 mg/dL (<150)
[2024-10-28 10:32] LABS: Free T4 (Free Thyroxine) 1.19 ng/dL (0.71-1.85); Thyroid Stimulating Hormone 3.43 uIU/mL (0.32-4.0)
[2024-10-28 10:56] LABS: Folate 9.1 ng/mL (> or = 4.0); Vitamin B12 474 pg/mL (200-900)
== END 2024-10-28 09:01 | disposition home or self-care (01) ==
LOC: HO.LAB 09:00
PROVIDERS: PCP Internal Medicine; Visit Provider Internal Medicine
DX: R73.02 Impaired glucose tolerance (oral) (principal); E78.00 Pure hypercholesterolemia, unspecified; Z12.5 Encounter for screening for malignant neoplasm of prostate
CPT/HCPCS: 36415; 80053; 80061; 82607; 82746; 83036; 84153; 84439; 84443; 85025

== ENCOUNTER 2024-11-01 13:01 | Outpatient (AMB) | payer OTHER, SELFPAY ==
--- OUTSIDE RECORDS SUMMARY | 2024-11-01 13:04 | XMS_ITS | Patient Health Record ---
Author Organization [facility] Address [address] [place] [address] Care Team Providers Care Meat Press Operator Name Role Phone Ron Snow MD Primary [...] Problem Status W/U Status Risk Notes Problem [id number] Constipation, unspecified constipation type (K59.00) Active confirmed Plan Of Treatment No Information Insurance Providers Payer Name Payer Address Payer Phone Subscriber Number Group Number Insured Name Patient Relationship to Insured Coverage Start Date Coverage End Date [facility] [employer] Plan [address] [address] [place], [place] [id number] [phone] [id number] RAYNA POLANCO Self - patient is the insured Medical (General) History Medical History History ICD Code hypertension e glaucoma schizophrenia Surgical History Surgery Date(Month/Year) prostate surgery eye surgery cyst removal
--- NOTE | 2024-11-01 13:12 | A.OFFPC_ITS ---
Vital Signs 11/01/24 13:13 Height 5 ft 9 in Weight 182 lb 2 oz BMI 26.9 BP 120/62 Blood Pressure Location Lt brachial Position Sitting Pulse 55 Pulse Source Pulse Oximeter Temp 97.1 F Temp Source Temporal Artery Scan Pulse Oximetry (%) 98 Oxygen Delivery Method Room Air Intake Visit Reasons: IGT Intake Note: Patient is here to follow up on IGT. Direct Casting Operator Required: Yes Direct Casting Operator Language: Garde Manger Name: Lucina (Sister) Information Interpreted: non-clinical & clinical (Pt decline orthopedic designer service prefer sister to translate) Maintenance Technician 3Rd Shift: Present Accompanied by: Sister Allergies No Known Allergies Allergy (Verified 11/01/24 13:13) Medication List - Last Reconciled 11/01/24 by Ron Snow MD [adult pullups As directed] amantadine HCl 100 mg PO BID amlodipine 10 mg PO DAILY 90 days blood pressure monitor (Blood Pressure Kit) As directed clobetasol 0.05% 1 appl topical BID 2 weeks clonazepam 0.5 mg PO DAILY clozapine 200 mg PO BEDTIME diclofenac sodium 1% (Arthritis Pain (diclofenac)) 4 grams topical QID disposable gloves As directed divalproex ER 500 mg PO BEDTIME finasteride 5 mg PO DAILY 90 days fluphenazine decanoate 25 mg IM Q4W linaclotide (Linzess) 145 mcg PO DAILY psyllium husk (Metamucil) 1 tbsp PO DAILY sennosides-docusate sodium 8.6-50 mg (Senna with Docusate Sodium) 2 tab-caps (2 x 8.6-50 mg) PO BEDTIME tamsulosin 0.8 mg (2 x 0.4 mg) PO BEDTIME 90 days Tobacco use date assessed: 11/01/24 Fall risk assessment: No Falls in past year Last assessed Fall Risk: 11/01/24 Dental Screening Dental Screen Date: 04/26/24 [facility] Medical History (Updated 11/01/24 @ 13:53 by Ron Snow MD) Hx of glaucoma Cataract Rash Halitosis Hip pain, right Tremor Renal insufficiency Hyponatremia Renal cyst Frequency of micturition TSH elevation Overweight (BMI 25.0-29.9) Hypertension Vitamin D deficiency Anemia Schizophrenia Thyroglossal duct cyst Constipation Surgical History History of trabeculectomy (2001) Hx of transurethral resection of prostate (2003) History of colonoscopy History of drainage of abscess History of prostate surgery Family History Father History of heart attack Hypertension CVD (cardiovascular disease) Mother History of mental problems Hypertension Paternal Grandfather Prostate cancer Maternal Grandmother No problems noted. Maternal Grandfather No problems noted. Paternal Grandmother No problems noted. Social History Household Members: Spouse and Family Housing: House Are you a primary student career development specialist to a significant other at home: No Do you presently have visiting nurse or other home services: Yes (sister Lucina 10/10 caregiver) Alcohol intake: never Patient Tobacco Use Status: Former Tobacco user Tobacco use type: Cigarette Years Smoked: stopped 2004 e-Cigarette/Vaping Use: Never Used Second Hand Smoke Exposure: Yes Advance Directives Date on File: 09/23/11 service: No Current occupational status: disabled Cognitive needs: Yes Hearing needs: No Vision needs: Yes Questionnaire PHQ-9 Over the last 2 weeks, how often have you been bothered by any of the following problems? 1. Little interest or pleasure in doing things: nearly every day 2. Feeling down, depressed, or hopeless: more than half the days 3. Trouble falling or staying asleep, or sleeping too much: more than half the days 4. Feeling tired or having little energy: more than half the days 5. Poor appetite or overeating: not at all 6. Feeling bad about yourself - or that you are a failure or have let yourself or your family down: not at all 7. Trouble concentrating on things, such as reading the newspaper or watching television: nearly every day 8. Moving or speaking so slowly that other people could have noticed. Or the opposite - being so fidgety or restless that you have been moving around a lot more than usual: nearly every day 9. Thoughts that you would be better off or of hurting yourself in some way: not at all Total score: 15 Depression Screening Interpretation: Positive Depression Screening Done: Yes Source: Developed by Drs. Shmuel Rucker, Krystal Jeromy Palacio and colleagues, with an educational farida from [employer]. Thrive Questionnaire Date Thrive assessed: 04/26/24 I am a: Patient What is your living situation today?: I have a steady place to live Within the past 12 months, did the food you bought not last and you didn't have the money to get more?: Never true Within the past 12 months, did you worry whether your food would run out before you got money to buy more?: I choose not to answer this question Do you have trouble paying for medicines?: No Do you have trouble getting transportation to medical appointments?: No Do you have trouble paying your heating and electricity bill?: No Do you have trouble taking care of your child, family member or friend?: I choose not to answer this question Do you have trouble with day-to-day activities such as bathing, preparing meals, shopping, managing finances, etc.?: Yes Are you currently unemployed and looking for a job?: No Are you interested in more education?: No Please select the resources that you would like help with: None Currently or been in a relationship where the following occur: No concerns reported THRIVE Score: 0 RANDEE-7 AMB Questionnaire RANDEE-7 Date RANDEE - 7 assessed: 04/26/24 Source: Developed by Drs. Shmuel Rucker, Jeromy Nichols and colleagues, with an educational farida from [employer]. Physical exam (Primary Care) Vital Signs: Last Vital Signs Temp 97.1 F 11/01/24 13:13 Pulse 55 11/01/24 13:13 BP 120/62 11/01/24 13:13 Pulse Ox 98 11/01/24 13:13 Oxygen Delivery Method Room Air 11/01/24 13:13 BMI result Body Mass Index 26.9 Tobacco/Smoking Status: Tobacco use Status Tobacco use date assessed 11/01/24 11/01/24 13:20 Patient Tobacco Use Status Former Tobacco user 11/01/24 13:20 Tobacco use type Cigarette 11/01/24 13:20 e-Cigarette/Vaping Use Never Used 11/01/24 13:20 PHQ-9: PHQ-9 Score PHQ-9: Total score 15 11/01/24 13:45 Depression Screening Interpretation: Positive Thrive Assessment: Date of Thrive Assessment Date Thrive assessed 04/26/24 11/01/24 13:20 Currently or been in a relationship where the following occur: No concerns reported Const General: alert; No acute distress Eyes Conjunctivae: conjunctivae normal Resp Auscultation: clear to auscultation bilaterally Cardio Rate: regular rate Rhythm: regular rhythm GI Inspection: Yes normal to inspection Extrem General: Yes normal to inspection and No edema Coding Level of Care Code Est Pt Level 4 (78920) Complex EM visit Add On G2211 Diagnoses Essential hypertension I10 Hypertension type: essential hypertension Overweight (BMI 25.0-29.9) E66.3 Impaired glucose tolerance R73.02 Benign prostatic hyperplasia with urinary retention N40.1; R33.8 Lower urinary tract symptom detail: urinary retention Lower urinary tract symptom presence: symptoms present Anemia, unspecified type D64.9 Anemia type: unspecified type 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 Decrease salt intake and exercise on amlodipine 10 mg once a day (2) Overweight (BMI 25.0-29.9): Code(s): E66.3 - Overweight Category: Medical Plan: Diet and exercise (3) Impaired glucose tolerance: Code(s): R73.02 - Impaired glucose tolerance (oral) Category: Medical Plan: Decrease the amount of carbohydrate intake, pasta, bread, rice and potatoes are all sugar and that is aside from all the sweet stuff, remember that fruits are good but they are Sweet also. (4) BPH (benign prostatic hyperplasia): Code(s): N40.0 - Benign prostatic hyperplasia without lower urinary tract symptoms Category: Medical Qualifiers: Lower urinary tract symptom detail: urinary retention Lower urinary tract symptom presence: symptoms present Qualified Code(s): N40.1 - Benign prostatic hyperplasia with lower urinary tract symptoms; R33.8 - Other retention of urine Plan: Continue with tamsulosin and finasteride (5) Anemia: Comment: Anemia of chronic disease Code(s): D64.9 - Anemia, unspecified Category: Medical Qualifiers: Anemia type: unspecified type Qualified Code(s): D64.9 - Anemia, unspecified Plan: Continue to monitor (6) Schizophrenia: Comment: Dr. Medina November 2019, Dr. Mcgee and [facility] Code(s): F20.9 - Schizophrenia, unspecified Category: Medical Qualifiers: Schizophrenia type: disorganized schizophrenia Qualified Code(s): F20.1 - Disorganized schizophrenia Plan: Continue with counseling and therapy (7) Eczema: Code(s): L30.9 - Dermatitis, unspecified Category: Medical Plan: will be seeing dermatology Plan History of Present Illness The patient is a 69-year-old male presenting with a follow-up visit. He has a history of hypertension, managed with amlodipine 10 mg once daily. His blood pressure management includes lifestyle modifications such as diet and exercise. The patient also has schizophrenia, for which he is on clozapine 200 mg at bedtime and other psychiatric medications including chlorazepam and Depakote. He follows up regularly with his psychiatrist, Dr. Mcgee. He has benign prostatic hyperplasia, managed with tamsulosin and finasteride. The patient has a history of recurrent major depression and continues with counseling and therapy. Recent blood work showed mild anemia with a hemoglobin level of 13.9 g/dL. This anemia has been stable over the years and is being monitored. His lipid profile indicates hyperlipidemia with an LDL cholesterol level of 115 mg/dL. The patient is also noted to have prediabetes, with a fasting blood sugar of 106 mg/dL and a hemoglobin A1c of 5.9%. He has been advised on dietary modifications to prevent progression to diabetes. Preventative care measures include an up-to-date colonoscopy as of 2018. Health Maintenance - Colonoscopy up to date as 2018 - Dietary modifications advised to prevent progression to diabetes Social History - Regular follow-up with psychiatrist, Dr. Mcgee Review of Systems - Cardiovascular: Denies chest pain, orthopnea, or syncope. - Respiratory: Denies asthma diagnosis. - Endocrine: Reports elevated fasting blood sugar and hemoglobin A1c. Physical Exam - Cardiovascular: Presence of S4 heart sound Results - Labs: Hemoglobin 13.9 g/dL indicating mild anemia - Labs: LDL cholesterol 115 mg/dL indicating hyperlipidemia - Labs: Fasting blood sugar 106 mg/dL and hemoglobin A1c 5.9% indicating prediabetes Plan The patient's hypertension is managed with amlodipine 10 mg daily, and he is advised to continue with dietary and exercise modifications to maintain blood pressure control. For schizophrenia, the patient is on clozapine and other psychiatric medications, with regular follow-ups with his psychiatrist, Dr. Mcgee, to monitor and adjust treatment as necessary. Management of benign prostatic hyperplasia includes continuation of tamsulosin and finasteride. Recurrent major depression is addressed through ongoing counseling and therapy. Mild anemia is being monitored with no immediate intervention required as it remains stable. Hyperlipidemia management includes monitoring cholesterol levels and maintaining a healthy diet. For prediabetes, the patient is advised on dietary modifications to prevent progression to diabetes, with a focus on reducing carbohydrate intake and avoiding sugary beverages. Preventative care includes ensuring colonoscopy remains up to date and considering vaccinations as needed. Patient was informed and verbally consented to the use of an ambient scribe for clinic note documentation during this visit. Discussion Notes During the visit, I discussed the importance of managing hypertension through medication and lifestyle changes, emphasizing the role of diet and exercise. We reviewed the patient's psychiatric management plan, ensuring regular follow-ups with Dr. Mcgee for schizophrenia. I advised on the continuation of current medications for benign prostatic hyperplasia and recurrent major depression. We discussed the stability of mild anemia and the need for ongoing monitoring. I highlighted the importance of dietary modifications to manage prediabetes and prevent progression to diabetes, advising against high carbohydrate and sugary foods. Preventative care measures, including colonoscopy and vaccinations, were also reviewed. Patient Instructions - Continue taking amlodipine 10 mg daily for blood pressure control. - Follow a healthy diet and exercise regularly to manage blood pressure and prediabetes. - Maintain regular follow-ups with your psychiatrist, Dr. Mcgee. - Continue current medications for benign prostatic hyperplasia and depression. - Monitor blood sugar levels and avoid high carbohydrate and sugary foods. - Ensure colonoscopy remains up to date and consider vaccinations as needed. Orders: Orders Comprehensive Met. Panel 6 Months R73.02 - Impaired glucose tolerance (oral) Thyroid Stimulating Hormone 6 Months R73.02 - Impaired glucose tolerance (oral) Lipid Panel 6 Months E78.00 - Pure hypercholesterolemia, unspecified, R73.02 - Impaired glucose tolerance (oral) Vitamin B12 and Folate 6 Months R73.02 - Impaired glucose tolerance (oral) Prostate Specific Antigen Scr 6 Months R73.02 - Impaired glucose tolerance (oral) Complete Blood Count Auto Diff 6 Months R73.02 - Impaired glucose tolerance (oral) Free T4 (Free Thyroxine) 6 Months R73.02 - Impaired glucose tolerance (oral) Hemoglobin A1c 6 Months R73.02 - Impaired glucose tolerance (oral)
[2024-11-01 13:13] VITALS: BP 120/62; PULSE 55; TEMP 36.2; O2SAT 98; BMI 26.9
== END 2024-11-01 14:03 | disposition home or self-care (01) ==
LOC: HO.HMCH 13:01
PROVIDERS: PCP Internal Medicine; Visit Provider Internal Medicine
DX: I10 Essential (primary) hypertension (principal); F20.1 Disorganized schizophrenia; E66.3 Overweight; Z68.26 Body mass index [BMI] 26.0-26.9, adult; R73.02 Impaired glucose tolerance (oral); N40.1 Benign prostatic hyperplasia with lower urinary tract symptoms; R33.8 Other retention of urine; D64.9 Anemia, unspecified; L30.9 Dermatitis, unspecified

== ENCOUNTER → 2024-11-01 13:01 | Outpatient (BNVA) | payer OTHER, SELFPAY | PROVIDERS: PCP Internal Medicine; Visit Provider Internal Medicine | DX: I10 Essential (primary) hypertension (principal); E66.3 Overweight; R73.02 Impaired glucose tolerance (oral); N40.1 Benign prostatic hyperplasia with lower urinary tract symptoms; R33.8 Other retention of urine; D64.9 Anemia, unspecified; F20.1 Disorganized schizophrenia; L30.9 Dermatitis, unspecified; Z79.899 Other long term (current) drug therapy; F33.9 Major depressive disorder, recurrent, unspecified; E78.5 Hyperlipidemia, unspecified; R73.03 Prediabetes | CPT/HCPCS: 96127; 99212 ==

== ENCOUNTER 2024-11-27 08:35 | Outpatient (REF) | payer OTHER, SELFPAY ==
[2024-11-27 09:03] LABS: MANUAL DIFF FLAG NO
--- OUTSIDE RECORDS SUMMARY | 2024-11-27 09:55 | XMS_ITS | Patient Health Record ---
Author Organization [facility] Address [address] [place] [address] Care Team Providers Care Wood Cutter Name Role Phone Ron Snow MD Primary [...] Problem Status W/U Status Risk Notes Problem [id number] Constipation, unspecified constipation type (K59.00) Active confirmed Plan Of Treatment No Information Insurance Providers Payer Name Payer Address Payer Phone Subscriber Number Group Number Insured Name Patient Relationship to Insured Coverage Start Date Coverage End Date [facility] [employer] Plan [address] [address] [place], [place] [id number] [phone] [id number] RAYNA POLANCO Self - patient is the insured Medical (General) History Medical History History ICD Code hypertension e glaucoma schizophrenia Surgical History Surgery Date(Month/Year) prostate surgery eye surgery cyst removal
[2024-11-27 10:37] LABS: Hematocrit 42.0 % (42.0-52.0); Hemoglobin 13.6 g/dl (14.0-18.0); Imm Gran Abs Auto 0.02 X10*3/uL (0.00-0.03); Imm Gran Pct Auto 0.4 % (0.0-0.4); Lymphocytes Absolute Auto 1.6 X10*3/uL (1.2-4.9); Mean Corpuscular HGB Conc 32.4 g/dl (31.0-36.0); Mean Corpuscular Hemoglobin 29.4 pg (27.0-33.0); Mean Corpuscular Volume 90.9 fL (80.0-98.0); NRBC Abs Auto 0.000 X10*3/uL (0.0-0.012); NRBC Pct Auto 0.0 /100WBC (0.0-0.2); Platelet Count 215 X10*3/uL (160-400); Red Blood Count 4.62 X10*6/uL (4.60-5.80); White Blood Count 4.9 X10*3/uL (4.8-10.8)
== END 2024-11-27 08:36 | disposition home or self-care (01) ==
LOC: HO.LABR 08:35
PROVIDERS: PCP Internal Medicine; Visit Provider Nurse Practitioner
DX: I51.81 Takotsubo syndrome (principal)
CPT/HCPCS: 36415; 85025

== ENCOUNTER 2025-01-01 10:25 | Outpatient (REF) | payer OTHER, SELFPAY ==
[2025-01-01 11:21] LABS: Cholesterol 156 mg/dL (<200); HDL Cholesterol 49 mg/dL (>40); Triglycerides 76 mg/dL (<150)
--- OUTSIDE RECORDS SUMMARY | 2025-01-01 12:23 | XMS_ITS | Patient Health Record ---
Author Organization [facility] Address [address] [place] [address] Care Team Providers Care Radio Personality Name Role Phone Ron Snow MD Primary Care Provider James Figueroa Jr Unavailable Reason For Referral No Information Medications Medication SIG (Take, Route, Frequency, Duration) Notes Start Date End Date Status cloZAPine 100 MG 1 tablet Orally Once a day Active Benztropine Mesylate 1 MG 1 tablet at be dtime Orally Once a day; Duration: 30 day(s) Active Lactulose 10 GM 1 [...] Problem Status W/U Status Risk Notes Problem Constipation ([id number]) Constipation, unspecified constipation type (K59.00) Active confirmed Plan Of Treatment No Information Insurance Providers Payer Name Payer Address Payer Phone Subscriber Number Group Number Insured Name Patient Relationship to Insured Coverage Start Date Coverage End Date [facility] [address] [address] [place], [place] [id number] BOB Self - patient is the insured Medical (General) History Medical History History ICD Code hypertension e glaucoma schizophrenia Surgical History Surgery Date(Month/Year) prostate surgery eye surgery cyst removal
== END 2025-01-01 10:26 | disposition home or self-care (01) ==
LOC: HO.LAB 10:25
PROVIDERS: PCP Internal Medicine; Visit Provider Nurse Practitioner
DX: Z13.6 Encounter for screening for cardiovascular disorders (principal); Z13.1 Encounter for screening for diabetes mellitus; Z79.899 Other long term (current) drug therapy
CPT/HCPCS: 36415; 80061; 83036

== ENCOUNTER 2025-01-31 16:05 | Outpatient (REF) | payer OTHER, SELFPAY ==
[2025-01-31 16:24] LABS: MANUAL DIFF FLAG NO
[2025-01-31 17:10] LABS: Hematocrit 42.2 % (42.0-52.0); Hemoglobin 13.7 g/dl (14.0-18.0); Imm Gran Abs Auto 0.02 X10*3/uL (0.00-0.03); Imm Gran Pct Auto 0.3 % (0.0-0.4); Lymphocytes Absolute Auto 1.9 X10*3/uL (1.2-4.9); Mean Corpuscular HGB Conc 32.5 g/dl (31.0-36.0); Mean Corpuscular Hemoglobin 30.0 pg (27.0-33.0); Mean Corpuscular Volume 92.5 fL (80.0-98.0); NRBC Abs Auto 0.000 X10*3/uL (0.0-0.012); NRBC Pct Auto 0.0 /100WBC (0.0-0.2); Platelet Count 223 X10*3/uL (160-400); Red Blood Count 4.56 X10*6/uL (4.60-5.80); White Blood Count 6.6 X10*3/uL (4.8-10.8)
[2025-01-31 17:24] LABS: Cholesterol 147 mg/dL (<200); HDL Cholesterol 42 mg/dL (>40); Triglycerides 94 mg/dL (<150)
== END 2025-01-31 16:06 | disposition home or self-care (01) ==
LOC: HO.LABR 16:05
PROVIDERS: PCP Internal Medicine; Visit Provider Nurse Practitioner
DX: R73.02 Impaired glucose tolerance (oral) (principal); E78.00 Pure hypercholesterolemia, unspecified; Z79.899 Other long term (current) drug therapy
CPT/HCPCS: 36415; 80061; 83036; 85025

== ENCOUNTER 2025-02-18 13:24 | Outpatient (AMB) | payer OTHER, SELFPAY ==
--- OUTSIDE RECORDS SUMMARY | 2025-02-12 15:37 | XMS_ITS | Encounter Summary ---
Author Organization [facility] Address [address] [facility] [address] [place] [address] Phone Care Team Providers Care Lending Advisor Name Role Phone Pcp, Not Required Primary Care Provider Unavaila ble Reason for Visit * Auth/Cert (Routine) Specialty Diagnoses / Procedures Referred By Contac t Referred To Contact Diagnoses Severe stage chronic open angle glaucoma severe open angled glaucoma OD Procedures TX AQUEOUS SHUNT EXTRAOC EQUAT PLATE RSVR W/GRAFT INSERTION GLAUCOMA VALVE Referral ID Status Reason Start Date Expiration Date Visits Re quested Visits Authorized [id number] 1 1 Encounter Details Date Type Department Care Team (Latest Contact Info) Description 02/12/2025 3:37 PM EST - 02/12/2025 7:45 PM [facility] Hospital Encounter [facility] PERIOP DEPT [address] [place] [address] Kristen Edward MD [address] [place] [phone] [email or web address] Discharge Disposition: Home or Self Care Social History Tobacco Use Types Packs/Day Years Used Date Smoking Tobacco: Former Cigarettes 2 - 1973 Smokeless Tobacco: Never Tobacco Cessation:Counseling Given: Not Answered Alcohol Use Standard Drinks/Week Comments Never 0 (1 standard drink = 0.6 oz pur e alcohol) Education Answer Date Recorded Are you interested in more education? Not on lyle e 02/07/2025 Are you concerned about learning? Not on file 02/07/2025 No 02/07/2025 No 02/07/2025 Food Answer Date Recorded Within the past 6 months we worried whether our food would run out before we got money to buy more. Never True 02/10/2025 Within the past 6 months the food we bought just didn't last and we didn't have enough money to get more. Never True Residential Stability Answer Date Recor ded What is your housing situation today? I have tha box 02/10/2025 How many times have you move d in the past 12 months? Zero (I did not move) 02/10/2025 Paying for Meds Answer Date Recorded Do you have trouble paying for medicines? No 02/10/2025 Paying Utility Bills Answer Date Record ed Do you have trouble paying your heating or elect ricity bill? No 02/10/2025 Transportation Answer Date Recorded Has the lack of transportati on kept you from medical appointments or from getting medications? No 02/10/2025 Digital Access Answer Date Recorded No 02/10/2025 Yes 02/10/2025 Do you have reliable internet access at home? Ye s 02/10/2025 Do you have a device (e.g., phone, tablet, computer) with a working camera? Yes 02/10/2025 Intimate Partner Violence Answer Date R ecorded Are you denied basic needs s uch as food, clothing, or medical care? No 02/12/2025 In the past 12 months have y ou been in a relationship with a person who hurts, threatens, or tries to control you? No 02/12/2025 Are you denied basic needs s uch as food, clothing, or medical care? No 02/12/2025 In the past 12 months have y ou been in a relationship with a person who hurts, threatens, or tries to control you? No 02/12/2025 Sex and Gender Information Value Date Recorded Sex Assigned at Male 02/07/2025 6:28 AM EST Legal Sex Male 3:43 PM EST Gender Identity Male 02/07/2025 6:28 AM EST Sexual Orientation Straight 02/07/2025 6: 28 AM EST documented as of this encounter Last Filed Vital Signs Vital Sign Reading Time Taken Comments Blood Pressure 151/89 02/12/2025 7:35 PM EST Pulse 59 02/12/2025 7:20 PM EST Temperature 36.6 C (97.8 F) 02/12/2025 7:20 PM EST Respiratory Rate 18 02/12/2025 4:30 PM EST Oxygen Saturation 98% 02/12/2025 7:35 PM EST Inhaled Oxygen Concentration - - Weight 81.6 kg (180 lb) 02/12/2025 4:08 PM EST Height 177.8 cm (5' 10 ) 02/12/2025 4:08 PM EST Body Mass Index 25.83 02/12/2025 4:08 PM EST documented in this encounter Discharge Instructions * Discharge Instructions* Michelle Peralta, INDU - 02/12/2025 7:17 PM EST EYE SURGERY DISCHARGE INSTRUCTIONS IN THE FIRST 24 HOURS AFTER EYE SURGERY Take Tylenol (Acetaminophen) 650 mg every 4 hours as needed for pain. Continue your regular medications and eye drops in the non-operated eye. Do not remove the metal/plastic shield unless instructed by your surgeon. Do not drive or operate any heavy machinery Call immediately if you have extreme nausea Call immediately if you have severe pain unrelieved by Tylenol Emergency Phone Number - [phone], ask for the physician manager decision support. GENERAL INSTRUCTIONS HYGIENE OF THE OPERATED EYE Wash your hands thoroughly before caring for the eye. If the lids are sticky or itchy in the morning, wipe gently with a cotton ball moistened with tap water. DO NOT press on lids or eyeball. INSTILLING MEDICATIONS Use as prescribed upon discharge from the hospital If more than one eye medication is due at the same time, eye drops must be instilled at least FIVE MINUTES APART. If ointment is prescribed, it should be applied last If you have been taking medications in the non-operated eye, continue as they were prescribed. If you take medications by mouth for a medication problem, continue as they were prescribed unless otherwise instructed by your physician. EYE PROTECTION Your doctor will advise you on the use of the protective shield following surgery. An eye pad is not necessary. Protective sunglasses may be worn as needed for your comfort, and are suggested for outdoor activities. ACTIVITIES Avoid vigorous exertion and heavy lifting for the first week after surgery. Try to sleep on the on the side opposite the surgery You may take a bath or shower, but avoid getting water directly into your operated eye for one weekafter surgery You should discuss driving and traveling with your surgeon. You may ride in a car and fly in an airplane unless otherwise instructed. You may read, watch TV, take walks and climb stairs. documented in this encounter Medications at Time of Discharge amLODIPine (NORVASC) 10 MG tablet Take 10 mg by mouth daily. 01/28/2025 clonazePAM (KLONOPIN) 0.5 MG tablet Take 0.5 mg by mouth 2 (two) times a day as needed for anxiety. 01/01/2025 cloZAPine (CLOZARIL) 100 MG tablet Take 100 mg by mouth daily. 01/22/2025 divalproex (DEPAKOTE ER) 500 MG ER 24 hr tablet Take 500 mg by mouth daily. 01/22/2025 finasteride (PROSCAR) 5 mg tablet Take 5 mg by mouth daily. 01/28/2025 FLUPHENAZINE DECANOATE INJ Inject 37.5 mg as directed every 21 days. latanoprost (XALATAN) 0.005 % ophthalmic solution Place 1 drop into each eye daily. 02/06/2025 LINZESS 145 mcg Cap Take 145 mcg by mouth daily before breakfast. 01/28/2025 netarsudiL (RHOPRESSA) 0.02 % ophthalmic solution Place 1 drop into each eye nightly at bedtime. Dispose of bottle 6 weeks after opening. 2.5 mL 12 02/10/2025 ofloxacin (OCUFLOX) 0.3 % ophthalmic solution Place 1 drop into the right eye 4 (four) times a day. 5 mL 1 02/12/2025 prednisoLONE acetate (PRED FORTE) 1 % ophthalmic suspension Place 1 drop into the right eye Every two hours. 10 mL 1 02/12/2025 tamsulosin (FLOMAX) 0.4 mg Cap Take 0.4 mg by mouth daily. 01/28/2025 documented as of this encounter H&P Notes * Kelly Gabriel MD - 02/12/2025 5:05 PM EST FOCUSED OPHTHALMOLOGY SURGICAL HISTORY AND PHYSICAL Date: 02/12/2025 Indication for surgery (proposed procedure): severe open angled glaucoma OD Procedure(s): INSERTION GLAUCOMA VALVE, RIGHT EYE Past Medical/Surgical History/Problem List: Past Medical History: Diagnosis Date Hypertensive disorder Prostate atrophy Schizophrenia Past Surgical History: Procedure Laterality Date COLONOSCOPY There are no active problems to display for this patient. Allergies/Reactions: No Known Allergies Medications: Current Facility-Administered Medications Medication Dose Route Frequency Provider Last Rate Last Admin sodium chloride (NS) 0.9 % syringe flush 3 mL 3 mL Intravenous PRN Kelly Gabriel MD tetracaine HCl (PF) 0.5 % ophthalmic solution 1 drop 1 drop Right Eye Once Kelly Gabriel MD Relevant Eye History: See most recent office note. Any changes are as follows:none relevant Ophthalmic Exam: External Exam: unchanged Assessment and Surgical Plan: Proceed with Procedure(s): INSERTION GLAUCOMA VALVE, RIGHT eye as scheduled documented in this encounter Procedure Notes * Kristen Edward MD - 02/12/2025 6:05 PM EST Title of Operation: Implant of glaucoma drainage device (Clearpath 250) in setting of extensive prior scarring, right eye Indications for Surgery: Uncontrolled intraocular pressure Preoperative Diagnosis: Severe stage chronic open angle glaucoma, right eye Postoperative Diagnosis: Same Anesthesia: Block/MAC Specimen (Bacteriological, Pathological or other): Estimated blood loss: minimal Prosthetic Device/Implant: Implant Name Type Inv. Item Serial No. Deburr Technician Lot No. LRB No. Used Action GRAFT ALLOGRAFT 9MM TANZGRAFT SPILT THICKNESS HALF SOLORIO - [id number] GRAFT ALLOGRAFT 9MM TANZGRAFTSPILT THICKNESS HALF SOLORIO CORNEAGEN [id number] Right 1 Implanted TUBE OPHTHALMOLOGICAL DEVICE DRAINAGE AHMED CLEARPATH 250 - [id number] TUBE OPHTHALMOLOGICAL DEVICE DRAINAGE AHMED CLEARPATH 250 [facility] [id number] Right 1 Implanted Surgeons Narrative: After a discussion in clinic regarding the risks and benefits of the surgery, as well as alternatives to it, informed consent was obtained. The patient was identified in the preoperative area, and the operative eye was marked. The patient was brought to the operating room where multiple drops of 0.5% proparacaine were instilled in the operative eye, followed by lidocaine jelly. The patient was then prepared and draped in sterile fashion. An 7-0 Vicryl suture was passed through the cornea at partial thickness and used to rotate the globe. A conjunctival peritomy was carried out over approximately 3 clock hours in the superior-temporal quadrant; extensive scarring was noted from the prior trabeculectomy which was carefully dissected. Blunt dissection was carried out posteriorly using Billy and Anna scissors. The tube was ligated near its insertion into the plate with a 6-0 Vicryl suture which was confirmed to be water tight using balanced salt solution on a canula in the tube. Theplate of the device was then placed in the superotemporal quadrant. The plate was pushed posteriorly under the conjunctiva and Tenon's layer to approximately 9 mm from the limbus and 9-0 nylon sutures were used to secure it to the sclera. A side port incision was created using a 15 degree blade. The glaucoma drainage device tube was laid onto the cornea and a length was estimated that would leavethe tube well inside the sulcus. The tube was then cut bevel down using scissors. A 23-gauge butterfly needle was used to create a short tunnel through the sclera and then to enter into the sulcus close to the iris plane. The tube was pushed through the scleral tunnel into the sulcus. The intraocular pressure was maintained by injecting BSS. The tube was fenestrated with the 8-0 Vicryl needle four times. Partial thickness donor cornea was trimmed to an appropriate size and used to cover the tube up to the limbus and extending posteriorly. This was held in place with two 7-0 Vicryl sutures. The relaxing incisions at either end of the main wound were also closed with interrupted 8-0 Vicryl. Neopolydex ointment, a patch, and shield were applied, and the patient left the operating room in good condition. The personal care assistant helped to provide exposure throughout. I understand that 1842(b)(7)(D) of the Social Security Act generally prohibits Medicare Part B reasonable payment for the services of assistants at surgery in teaching hospitals when qualified residents are. I certify that the services for which p ayment is claimed were medically necessary, and that no resident was available to perform the services. I further understand that these services are subject to payment review by the Medicare carrier. Surgeon(s): Kristen Edward MD Yuan, Lucy, MD documented in this encounter Miscellaneous Notes * Discharge Instr - Diet - Michelle Peralta RN - 02/12/2025 7:17 PM EST Resume regular diet. No alcohol for 24 hours. No driving for 24 hours. documented in this encounter Plan of Treatment Upcoming Encounters Date Type Department Care Team (Late st Contact Info) Description 02/24/2025 11:40 AM EST Office Visit [address] [address] Kristen Edward MD [address] [place] [phone] [email or web address] Scheduled Procedures Name Priority Associated Diagnoses Date/Ti me INSERTION GLAUCOMA VALVE Primary open angle glaucoma (POAG) of both eyes, severe stage documented as of this encounter Procedures Procedure Name Priority Date/Time Associated Diagnosis Comments [place] AQUEOUS SHUNT EXTRAOC EQUAT PLATE RSVR W/GRAFT 02/12/2025 5:57 PM EST severe open angled glaucoma OD documented in this encounter Visit Diagnoses Diagnosis Primary open angle glaucoma (POAG) of both eyes, severe stage Hypertension Unspecified essential hypertension Psychiatric disorder Unspecified nonpsychotic mental disorder documented in this encounter Administered Medications Inactive Administered Medications - up to 3 most recent administrations Medication Order MAR Action Action Date Dose Rate Site acetaminophen (TYLENOL) tablet 325-650 mg 325-650 mg, Oral, Once, On Mon02/12/25 at 2030, For 1 dose Given 02/12/2025 7:36 PM EST 650 mg sodium chloride (NS) 0.9 % syringe flush 3 mL 3 mL, Intravenous, As needed, line care, Starting on Mon02/12/25 at 1619, Pre-op (day of), Per Institutional IV Line Care Policy.Indications:Primary open angle glaucoma (POAG) of both eyes, severe stage tetracaine HCl (PF) 0.5 % ophthalmic solution 1 drop 1 drop, Right Eye, Once, On Mon02/12/25 at 1715, For 1 dose, Pre-op (day of)Indications:Primary open angle glaucoma (POAG) of both eyes, severe stage Given 02/12/2025 5:30 PM EST 1 drop documented in this encounter Active and Recently Administered Medications Times are shown in EST. Scheduled Medication Order 02/10/2025 02/11/2025 02/12/2025 acetaminophen (TYLENOL) tablet 325-650 mg (COMPLETED) 325-650 mg, Oral, Once, On Mon02/12/25 at 2030, For 1 dose 1936 (Given - Provid er: Michelle Peralta RN) tetracaine HCl (PF) 0.5 % ophthalmic solution 1 drop (COMPLETED) 1 drop, Right Eye, Once, On Mon02/12/25 at 1715, For 1 dose, Pre-op (day of) 1730 (Given - Provid er: Nicolette Dasilva RN) PRN Medication Order 02/10/2025 02/11/2025 02/12/2025 neomycin-polymyxin B-dexAMETHasone (MAXITROL) ophthalmic ointment (CANCELED) As needed, Starting on Mon02/12/25 at 1841, Intra-op/procedure 1841 (Given - Provid er: Kristen Edward MD) sodium chloride (NS) 0.9 % syringe flush 3 mL 3 mL, Intravenous, As needed, line care, Starting on Mon02/12/25 at 1619, Pre-op (day of), Per Institutional IV Line Care Policy. sodium chloride 0.9% irrigation solution premix (CANCELED) As needed, Starting on Mon02/12/25 at 1814, Intra-op/procedure 181 (Given - Provid er: Kristen Edward MD) sodium hyaluronate (HEALON) intraocular injection syringe (CANCELED) As needed, Starting on Mon02/12/25 at 1815, Intra-op/procedure 181 (Given - Provid er: Kristen Edward MD) tetracaine HCl (PF) 0.5 % ophthalmic solution (CANCELED) As needed, Starting on Mon02/12/25 at 1904, Intra-op/procedure 1904 (Given - Provid er: Kristen Edward MD) documented in this encounter Care Teams Lending Advisor Relationship Specialty Start Date End Date Pcp, Not Required [address] [place] [phone] PCP - General 02/07/25 documented as of this encounter Additional Source Comments The information contained in this document represents components of the legal health record. It is not the complete legal health record.[facility]
--- OUTSIDE RECORDS SUMMARY | 2025-02-12 17:40 | XMS_ITS | Encounter Summary ---
Author Organization [facility] Address [address] [place] [phone] Phone Care Team Providers Care Advanced Solutions Architect Name Role Phone Pcp, Not Required Primary Care Provider Unavaila ble Reason for Visit * Auth/Cert (Routine) Specialty Diagnoses / Procedures Referred By Contac t Referred To Contact Diagnoses Severe stage chronic open angle glaucoma severe open angled glaucoma OD Procedures [place] AQUEOUS SHUNT EXTRAOC EQUAT PLATE RSVR W/GRAFT INSERTION GLAUCOMA VALVE Referral ID Status Reason Start Date Expiration Date Visits Re quested Visits Authorized [id number] 1 1 Encounter Details Date Type Department Care Team (Late st Contact Info) Description 02/12/2025 5:40 PM EST - 02/12/2025 7:10 PM EST Surgery [address] PERIOP DEPT [address] [place] [address] Kristen Edward MD [address] [place] [phone] [email or web address] INSERTION GLAUCOMA VALVE Surgery Details Date/Time Status Location OR Service Patient Class Case Class Case Type Trauma Case? 02/12/2025 5:40 PM Posted [facility] OR OR 62 Ophthalmology Day Surgery Panel 1 Procedure LRB Anes Op Region Wound Class Comments INSERTION GLAUCOMA VALVE Right MAC and Block C lean (1) Surgeon Surgeon Role Service Panel Kristen Edward MD Primary Ophthalmology 1 documented in this encounter Social History Tobacco Use Types Packs/Day Years [...] your housing situation today? I have tha sing 02/10/2025 How many times have you move [...] Sign Reading Time Taken Comments Blood Pressure 110/73 02/12/2025 5:48 PM EST pos t block Pulse 56 02/12/2025 4:30 PM EST Temperature 36.6 C (97.8 F) 02/12/2025 4:30 PM EST Respiratory Rate 18 02/12/2025 4:30 PM EST Oxygen Saturation 100% 02/12/2025 4:30 PM EST Inhaled Oxygen Concentration - - Weight 81.6 kg (180 lb) 02/12/2025 4:08 PM EST Height 177.8 cm (5' 10 ) 02/12/2025 4:08 PM EST Body Mass Index 25.83 02/12/2025 4:08 PM EST documented in this encounter Discharge Instructions * Discharge Instructions* Michelle Peralta RN - 02/12/2025 7:17 PM EST EYE SURGERY [...] unrelieved by Tylenol Emergency Phone Number - [phone], ask for the physician decision unit rn. GENERAL INSTRUCTIONS HYGIENE OF THE OPERATED EYE [...] Implant Name Type Inv. Item Serial No. Snaker Tractor Driver Lot No. LRB No. Used Action GRAFT ALLOGRAFT 9MM TANZGRAFT SPILT THICKNESS HALF SOLORIO - [id number] GRAFT ALLOGRAFT 9MM TANZGRAFTSPILT THICKNESS HALF SOLORIO CORNEAGEN [id number] Right 1 Implanted TUBE OPHTHALMOLOGICAL DEVICE DRAINAGE AHMED CLEARPATH 250 - [id number] TUBE OPHTHALMOLOGICAL DEVICE DRAINAGE AHMED CLEARPATH 250 [facility] [id number] Right 1 Implanted Surgeons Narrative: After [...] the operating room in good condition. The data entry assistant helped to provide exposure throughout. I understand that 1842(b)(7)(D) of the Social Security Act generally prohibits Medicare Part B reasonable payment for the services of assistants at surgery in teaching hospitals when qualified residents are. I certify that the services for which jennifer heredia is claimed were medically necessary, and that [...] Description 02/24/2025 11:40 AM EST Office Visit [facility] [place] [address] Kristen Edward MD [address] [place] [address] [email or web address] Scheduled Procedures Name Priority Associated Diagnoses Date/Ti me INSERTION GLAUCOMA VALVE Primary open angle glaucoma (POAG) of both eyes, severe stage documented as of this encounter Procedures Procedure Name Priority Date/Time Associated Diagnosis Comments [place] AQUEOUS SHUNT EXTRAOC EQUAT PLATE RSVR W/GRAFT 02/12/2025 5:57 PM EST severe open angled glaucoma OD documented in this encounter Visit Diagnoses Not on filedocumented in this encounter Administered Medications Inactive Administered Medications - up to 3 most recent administrations Medication Order MAR Action Action Date Dose Rate Site acetaminophen (TYLENOL) tablet 325-650 mg 325-650 mg, Oral, Once, On Mon02/12/25 at 2030, For 1 dose Given 02/12/2025 7:36 PM EST 650 mg neomycin-polymyxin B-dexAMETHasone (MAXITROL) ophthalmic ointment As needed, Starting on Mon02/12/25 at 1841, Intra-op/procedure Given 02/12/2025 6:41 PM EST 1 Application sodium chloride (NS) 0.9 % syringe flush 3 mL 3 mL, Intravenous, As needed, line care, Starting on Mon02/12/25 at 1619, Pre-op (day of), Per Institutional IV Line Care Policy.Indications:Primary open angle glaucoma (POAG) of both eyes, severe stage sodium chloride 0.9% irrigation solution premix As needed, Starting on Mon02/12/25 at 1814, Intra-op/procedure Given 02/12/2025 6:14 PM EST 250 mL sodium hyaluronate (HEALON) intraocular injection syringe As needed, Starting on Mon02/12/25 at 1815, Intra-op/procedure Given 02/12/2025 6:15 PM EST 0.4 mL Right Eye tetracaine HCl (PF) 0.5 % ophthalmic solution 1 drop 1 drop, Right Eye, Once, On Mon02/12/25 at 1715, For 1 dose, Pre-op (day of)Indications:Primary open angle glaucoma (POAG) of both eyes, severe stage Given 02/12/2025 5:30 PM EST 1 drop tetracaine HCl (PF) 0.5 % ophthalmic solution As needed, Starting on Mon02/12/25 at 1904, Intra-op/procedure Given 02/12/2025 7:04 PM EST 2 drops documented in this encounter Active and Recently [...] needed, Starting on Mon02/12/25 at 1814, Intra-op/procedure 1814 (Given - Provid er: Kristen Edward MD) sodium hyaluronate (HEALON) intraocular injection syringe (CANCELED) As needed, Starting on Mon02/12/25 at 1815, Intra-op/procedure 181 (Given - Provid er: Kristen Edward MD) tetracaine HCl (PF) 0.5 % ophthalmic solution (CANCELED) As needed, Starting on Mon02/12/25 at 1904, Intra-op/procedure 1904 (Given - Provid er: Kristen Edward MD) documented in this encounter Care Teams Advanced Solutions Architect Relationship Specialty Start Date End Date Pcp, Not Required [address] [place] [phone] PCP - General 02/07/25 documented as of this encounter Additional Source Comments The information contained in this document represents components of the legal health record. It is not the complete legal health record.[facility]
--- OUTSIDE RECORDS SUMMARY | 2025-02-12 17:59 | XMS_ITS | Encounter Summary ---
Author Organization [facility] Address [address] [place] [phone] Phone Care Team Providers Care Milieu Manager Name Role Phone Pcp, Not Required Primary Care Provider Unavaila ble Reason for Visit * Auth/Cert (Routine) Specialty Diagnoses / Procedures Referred By Contac t Referred To Contact Diagnoses Severe stage chronic open angle glaucoma severe open angled glaucoma OD Procedures GA AQUEOUS SHUNT EXTRAOC EQUAT PLATE RSVR W/GRAFT INSERTION GLAUCOMA VALVE Referral ID Status Reason Start Date Expiration Date Visits Re quested Visits Authorized [id number] 1 1 Encounter Details Date Type Department Care Team (Late st Contact Info) Description 02/12/2025 5:59 PM EST Anesthesia Event [facility] DEPT [address] [place] [phone] Miguel López MD, PhD [address] [address] [email or web address] Bernadette Musa MD [address] [place] [phone] [email or web address] Anesthesia Record Procedure Summary Procedure Name Responsible Anesthesiologist Anesthesia Start Time Anesthesia Stop Time INSERTION GLAUCOMA VALVE (Right) Miguel López MD, PhD 02/12/25 17502/12/251922 Events Date Time Event Comment 02/12/2025 1759 An Start 1759 An Start Data 1801 An Induction 1801 An Induction complet 180 Natural Airway 1823 1913 an stop data 192 Post Op Handoff 1922 An Stop Meds Name Total remifentaniL (ULTIVA) 2,000 mcg, sodium chloride (PF) (NS) 40 mL injection syringe 100 mcg midazolam 1 mg/mL 2 mg STANDARD EYE BLOCK 4 mL * Agents Name N2O O2 Flow (aux) Air O2 Flow (fresh gas) * Blood No blood administrations on file. Lines, Drains, and Airways Type Details Placement Removal Wound 02/12/25; Right; Eye ; RIGHT INSERTION GLAUCOMA VALVE 02/12/25 0000 by Eric Linares, RN Peripheral IV Placement Date: 01/19 09/11; Placement Time: 1630; Size: 22 G; Orientation: Left; Location: Antecubital; Removal Date: 02/12/25; Removal Time: 194402/12/251630 by Nicolette Dasilva RN 02/12/251944 by Michelle Peralta RN documented in this encounter Social History Tobacco Use Types Packs/Day Years Used Date Smoking Tobacco: Former Cigarettes - 1973 Smokeless Tobacco: Never Alcohol Use Standard Drinks/Week Comments Never 0 [...] is your housing situation today? I have hta sing 02/10/2025 How many times have you [...] AM EST documented as of this encounter Procedure Notes * Bernadette Musa MD - 02/12/2025 5:51 PM ESTAssociated Order(s): Eye Block EYE BLOCK PROCEDURE NOTE: Start time: 02/12/2025 5:51 PM Reason for Block: primary anesthetic Anesthesiologist: Bernadette Musa MD Performed: anesthesiologist [place] protocol checklist completed and placed in chart. Patient Monitoring: ASA monitors applied during procedure: yes Vital signs recorded in nursing flowsheet during procedure: yes Eye Block: Block Type: single injection Block Laterality: right Block Location: extraconal Patient Position: supine Prep: povidone-iodine 7.5% surgical scrub Technique: Inferolateral approach Needle: Needle Type: peribulbar Needle Gauge: 25 Needle Length: 2.2 Assessment: Injection Assessment: negative aspiration for heme, incremental injection and no paresthesia on injection Complications: Complications observed: no documented in this encounter OR Notes * Anesthesia Postprocedure Evaluation - Francisco Baca CRNA - 02/12/2025 7:23 PM EST Anesthesia Post Operative Note Anesthesia Type: MAC Patient evaluated in: Phase II Consciousness: awake Airway/ Respiratory Status: Airway adjuncts: no airway adjuncts. Respiratory Status: no airway complications. Supplemental O2: room air Nausea/ Vomiting: nausea and vomiting control satisfactory Hydration status: adequate Analgesia/ Pain: Pain control is: adequate Vital Signs: Post-procedure vital signs reviewed Other: Patient experienced no anesthesia complications. PACU Discharge Disposition: home Entered by: Francisco Baca CRNA There were no known notable events for this encounter. Vital Signs: Vitals Value Taken Time Pulse 61 02/12/25 19:23 BP 153/95 02/12/25 19:21 SpO2 98 % 02/12/25 19:22 Resp 14 02/12/25 19:23 Temp 36 02/12/25 19:23 Vitals shown include unfiled device data. No vitals data found for the desired time range. * Anesthesia Preprocedure Evaluation - Miguel López MD, PhD - 02/12/2025 6:23 PM EST Patient: Antonio Jimenez Date of Surgery: 02/12/2025 Procedure: INSERTION GLAUCOMA VALVE (Right) Surgeons and Role: * Kristen Edward MD - Primary Relevant Problems CARDIOVASCULAR (+) Hypertension PSYCHIATRIC/BEHAVIORAL (+) Psychiatric disorder General: Patient snapshot reviewed. 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 Physical Exam Airway: Mallampati score: II. Neck ROM is full. Mouth opening: normal. TM distance: normal. Dental: (-) loose teeth Cardiovascular: The cardiovascular exam is normal. Pulmonary: The pulmonary exam is normal. Neurological: (+) alert and oriented to self Vital Signs (imported from record): BP 110/73 Comment: post block Pulse (!) 56 Temp 36.6 ??C (97.8 ??F) (Temporal) Resp 18 Ht 177.8 cm (5' 10 ) Wt 81.6 kg (180 lb) SpO2 100% BMI 25.83 kg/m?? - Lab Results (imported from record): CBC: No results found for: WBC , RBC , HGB , HCT , PLT , MCV , MCH , MCHC , RDW , MVP , NRBC , NRBCA - BMP: Lab Results Component Value Date NA 136 02/06/2025 K 3.9 02/06/2025 CL 103 02/06/2025 CO2 22 02/06/2025 BUN 18 02/06/2025 CRE 1.18 02/06/2025 GLU 110 (H) 02/06/2025 CA 10.0 02/06/2025 GFR 66 02/06/2025 ANION 11 02/06/2025 - LFTs: No results found for: ALB , TBILI , SGOT , SGPT , TP , GLOB - Anesthesia Assessment and Plan ASA physical status: 3E Primary anesthetic: MAC Airway: The plan for the airway is: natural. Monitoring/Lines: The plan for monitoring and lines is: standard monitor. Post-op destination/disposition: PACU Notes: Anesthesia day of surgery notes: Discussed with the patient regarding the nature of the eye surgery and sedation. Pt understands that it is important to stay awake enough in order to keep the head still and therefore it will limit the amount of sedatives/pain medications we can give around the time of the surgery. Pt may recall part or the entire surgical process therefore. Instruction was given as to the patient's participationin notifying the surgeon that she or he will need to cough or sneeze, and if the pt does feel pain in the operative site, to inform the surgeon and the anesthesiologist. Informed Consent: Anesthetic plan and risks discussed with: patient. documented in this encounter Plan of Treatment Upcoming Encounters Date Type Department Care Team (Late st Contact Info) Description 02/24/2025 11:40 AM EST Office Visit [address] [place] [address] Kristen Edward MD [address] [place] [id number] [email or web address] Scheduled Procedures Name Priority Associated Diagnoses Date/Ti me INSERTION GLAUCOMA VALVE Primary open angle glaucoma (POAG) of both eyes, severe stage documented as of this encounter Procedures Procedure Name Priority Date/Time Associated Diagnosis Comments PERIPHERAL BLOCK EYE Routine 02/12/2025 5:51 PM EST documented in this encounter Results * Eye Block (02/12/2025 5:51 PM EST) Narrative Bernadette Musa MD - 02/12/2025 5:51 PM EST Bernadette Musa MD 02/12/2025 5:52 PM EYE BLOCK PROCEDURE NOTE: Start time: 02/12/2025 5:51 PM Reason for Block: primary anesthetic Anesthesiologist: Bernadette Musa MD Performed: anesthesiologist [place] protocol checklist completed and placed in chart. Patient Monitoring: ASA monitors applied during procedure: yes Vital signs recorded in nursing flowsheet during procedure: yes Eye Block: Block Type: single injection Block Laterality: right Block Location: extraconal Patient Position: supine Prep: povidone-iodine 7.5% surgical scrub Technique: Inferolateral approach Needle: Needle Type: peribulbar Needle Gauge: 25 Needle Length: 2.2 Assessment: Injection Assessment: negative aspiration for heme, incremental injection and no paresthesia on injection Complications: Complications observed: no Bernadette Musa MD [place] ANESTHESIA Final Resul t documented in this encounter Visit Diagnoses Not on filedocumented in this encounter Administered Medications Inactive Administered Medications - up to 3 most recent administrations Medication Order MAR Action Action Date Dose Rate Site lidocaine MPF 1%-BUPivacaine MPF 0.375%-hyaluronidase 5 units/mL (STANDARD EYE BLOCK) injection Peribulbar, Once PRN Procedure, Starting on Mon02/12/25 at 1751, For 1 dose, Anesthesia Intra-op Given 02/12/2025 5:51 PM EST 4 mL midazolam (PF) (VERSED) injection Soln Intravenous, Once PRN Procedure, Starting on Mon02/12/25 at 1751, For 1 dose, Anesthesia Intra-op Given 02/12/2025 5:51 PM EST 2 mg remifentaniL (ULTIVA) 2,000 mcg, sodium chloride (PF) (NS) 40 mL injection syringe Intravenous, Once PRN Procedure, Starting on Mon02/12/25 at 1751, For 1 dose, Anesthesia Intra-op Bolus 02/12/2025 7:08 PM EST 20 mcg New Bag 02/12/2025 7:03 PM EST 30 mcg Given 02/12/2025 5:51 PM EST 50 mcg documented in this encounter Care Teams Milieu Manager Relationship Specialty Start Date End Date Pcp, Not Required [address] [place] [id number] PCP - General 02/07/25 documented as of this encounter Additional Source Comments The information contained in this document represents components of the legal health record. It is not the complete legal health record.[facility]
--- OUTSIDE RECORDS SUMMARY | 2025-02-13 09:30 | XMS_ITS | Encounter Summary ---
Author Organization [facility] Address [address] [facility] [address] [place] [phone] Phone Care Team Providers Care Fibrous Plasterer Name Role Phone Pcp, Not Required Primary Care Provider Unavaila ble Reason for Visit * Reason Comments Post-op Encounter Details Date Type Department Care Team (Late st Contact Info) Description 02/13/2025 9:30 AM EST Office Visit [facility] [address] [place] [address] Kelly Gabriel MD [address] [place] [phone] [email or web address] Primary open angle glaucoma (POAG) of both eyes, severe stage (Primary Dx) Social History Tobacco Use Types Packs/Day Years Used Date Smoking Tobacco: Former Cigarettes 2 - 1973 Smokeless Tobacco: Never Alcohol Use [...] AM EST documented as of this encounter Progress Notes * Kelly Gabriel MD - 02/13/2025 9:30 AM EST # primary open angle glaucoma both eyes, severe Target IOP: / ; Tmax: ( ) / ( ); Central corneal thickness: / ; CH: / Refractive error: OD . x / OS . x Asthma/steroids: Family history: Optic nerve structure and function: severe thinning both eyes, generalized depression right eye, [place] left eye Medications: dorzolamide 3/3, brimonidine 3/3, timolol 2/2, Rhopressa 1/, latanoprost 03/20, diamox 500 mg bid Intolerances: Procedures and Complications: CEIOL both eyes, trabeculectomy both eyes Relevant history and problems: Seen in [facility] EW 02/06/25 and 02/10/25 for elevated IOP OU (30s) and started on additional IOP-lowering therapy, Seen 02/12/25 in [facility] for IOP check with IOP 31/21. IOP too high OD, and need for urgent lowering. 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 Well-covered. Will continue IOP-lowering therapy OU and diamox for intraocular pressure control OS (which was previously elevated in the 30s as well) -Start Pred q2h WA OD, Ofloxacin QID OD -Continue dorzolamide TID OU, brimonidine TID OU, timolol BID OU, latanoprost qhs OU, Rhopressa qHSOU -Continue Diamox 500 mg BID -RTC 02/24 @ [address] Edward -Postop precautions reviewed -Return for worsening vision, eye pain, redness, flashes, new floaters, curtains/veils Discussed with Dr. Cheyanne Gabriel MD PGY-5, Glaucoma Fellow [facility] documented in this encounter Plan of Treatment Upcoming Encounters Date Type Department Care Team (Late st Contact Info) Description 02/24/2025 11:40 AM EST Office Visit [facility] Glaucoma [address] [address] Kristen Edward MD [address] [place] [phone] [email or web address] Scheduled Procedures Name Priority Associated Diagnoses Date/Ti me INSERTION GLAUCOMA VALVE Primary open angle glaucoma (POAG) of both eyes, severe stage documented as of this encounter Visit Diagnoses Diagnosis Primary open angle glaucoma (POAG) of both eyes, severe stage- Primary documented in this encounter Care Teams Fibrous Plasterer Relationship Specialty Start Date End Date Pcp, Not Required [address] [place] [phone] PCP - General 02/07/25 documented as of this encounter Additional Source Comments The information contained in this document represents components of the legal health record. It is not the complete legal health record.[facility]
[2025-02-18 13:35] VITALS: BP 110/64; PULSE 54; O2SAT 99; BMI 26.2
--- NOTE | 2025-02-18 13:35 | MHC.PC.OV ---
Vital Signs 02/18/25 13:35 Height 5 ft 9 in Weight 177 lb 8 oz BMI 26.2 BP 110/64 Blood Pressure Location Lt brachial Position Sitting Pulse 54 Pulse Source Pulse Oximeter Pulse Oximetry (%) 99 Oxygen Delivery Method Room Air Intake Visit Reasons: low HR and fatigue Lock Expert Required: No Accompanied by: Self / Same As Patient Allergies No Known Allergies Allergy (Verified 02/18/25 13:58) Medication List - Last Reconciled 02/18/25 by Anthony Bates MD [adult pullups As directed] amantadine HCl 100 mg PO BID amlodipine 10 mg PO DAILY 90 days blood pressure monitor (Blood Pressure Kit) As directed clobetasol 0.05% 1 appl topical BID 2 weeks clonazepam 0.5 mg PO DAILY clozapine 200 mg PO BEDTIME diclofenac sodium 1% (Arthritis Pain (diclofenac)) 4 grams topical QID disposable gloves As directed divalproex ER 500 mg PO BEDTIME finasteride 5 mg PO DAILY 90 days fluphenazine decanoate 25 mg IM Q4W linaclotide (Linzess) 145 mcg PO DAILY psyllium husk (Metamucil) 1 tbsp PO DAILY sennosides-docusate sodium 8.6-50 mg (Senna with Docusate Sodium) 2 tab-caps (2 x 8.6-50 mg) PO BEDTIME tamsulosin 0.8 mg (2 x 0.4 mg) PO BEDTIME 90 days Tobacco use date assessed: 02/18/25 Fall risk assessment: No Falls in past year Last assessed Fall Risk: 02/18/25 Dental Screening Dental Screen Date: 02/18/25 Did you have a dental visit in the last 12 months?: No Did you have a dental problem in the last 6 months where you did not have access to dental care?: No Was dental information given to patient?: No HPI low HR and fatigue HPI Details Patient comes in today for further evaluation of a reported near-syncopal episode that occurred earlier this morning. States that he felt like he was almost fainting and recalls that he was not able to see anything for a couple of minutes during this time He did not pass out completely and states that his vision gradually came back and his dizziness/lightheadedness also slowly subsided after a while He underwent right eye surgery for glaucoma last Monday (about 6 days ago) and his right eye/eyelid still appears slightly swollen He has a long-standing history of schizophrenia and is currently on multiple psychiatric medications, including Clozapine at 200 mg QD, Clonazepam 0.5 mg QD PRN, Depakote ER 500 mg Q HS, Fluphenazine decanoate 25 mg IM every 4 weeks and Amantadine (presumably for EPS symptoms) He was also noted to be bradycardic often over the past few months He reports feeling fatigued often lately; denies any headaches He denies any chest pains, no increased SOB No nausea/vomiting, no abdominal paini No change in bowel habits noted [facility] Medical History (Updated 02/18/25 @ 14:33 by Anthony Bates MD) Hx of glaucoma Cataract Rash Halitosis Hip pain, right Tremor Renal insufficiency Hyponatremia Renal cyst Frequency of micturition TSH elevation Overweight (BMI 25.0-29.9) Hypertension Vitamin D deficiency Anemia Schizophrenia Thyroglossal duct cyst Constipation Surgical History History of trabeculectomy (2001) Hx of transurethral resection of prostate (2003) History of colonoscopy History of drainage of abscess History of prostate surgery Family History Father History of heart attack Hypertension CVD (cardiovascular disease) Mother History of mental problems Hypertension Paternal Grandfather Prostate cancer Maternal Grandmother No problems noted. Maternal Grandfather No problems noted. Paternal Grandmother No problems noted. Social History Household Members: Spouse and Family Housing: House Are you a primary insurance healthcare representative to a significant other at home: No Do you presently have visiting nurse or other home services: Yes (sister Lucina 10/10 caregiver) Alcohol intake: never Patient Tobacco Use Status: Former Tobacco user Tobacco use type: Cigarette Years Smoked: stopped 2004 e-Cigarette/Vaping Use: Never Used Second Hand Smoke Exposure: Yes Advance Directives Date on File: 09/23/11 service: No Current occupational status: disabled Cognitive needs: Yes Hearing needs: No Vision needs: Yes Questionnaire PHQ-9 Over the last 2 weeks, how often have you been bothered by any of the following problems? 1. Little interest or pleasure in doing things: nearly every day 2. Feeling down, depressed, or hopeless: more than half the days 3. Trouble falling or staying asleep, or sleeping too much: more than half the days 4. Feeling tired or having little energy: more than half the days 5. Poor appetite or overeating: not at all 6. Feeling bad about yourself - or that you are a failure or have let yourself or your family down: not at all 7. Trouble concentrating on things, such as reading the newspaper or watching television: nearly every day 8. Moving or speaking so slowly that other people could have noticed. Or the opposite - being so fidgety or restless that you have been moving around a lot more than usual: nearly every day 9. Thoughts that you would be better off or of hurting yourself in some way: not at all Total score: 15 Depression Screening Interpretation: Positive Depression Screening Follow-up: Existing condition and In treatment Depression Screening Done: Yes 17112 - PHQ-9 Billing: Yes Source: Developed by Drs. Shmuel Rucker, Krystal Dick, Jeromy Watt and colleagues, with an educational farida from [employer]. Thrive Questionnaire Date Thrive assessed: 02/18/25 I am a: Patient What is your living situation today?: I have a steady place to live Within the past 12 months, did the food you bought not last and you didn't have the money to get more?: Never true Within the past 12 months, did you worry whether your food would run out before you got money to buy more?: I choose not to answer this question Do you have trouble paying for medicines?: No Do you have trouble getting transportation to medical appointments?: No Do you have trouble paying your heating and electricity bill?: No Do you have trouble taking care of your child, family member or friend?: I choose not to answer this question Do you have trouble with day-to-day activities such as bathing, preparing meals, shopping, managing finances, etc.?: Yes Are you currently unemployed and looking for a job?: No Are you interested in more education?: No Please select the resources that you would like help with: None Currently or been in a relationship where the following occur: No concerns reported THRIVE Score: 0 AUDIT C Alcohol Use Questionnaire (AUDIT-C) 1. How often do you have a drink containing alcohol?: Never 3. How often do you have six or more drinks on one occasion?: Never Total Score: 0 Score Reviewed/Action Taken: Yes RANDEE-7 AMB Questionnaire RANDEE-7 Date RANDEE - 7 assessed: 02/18/25 Feeling nervous, anxious, or on edge: 0 = Not at all Not being able to stop or control worryin = Not at all Worrying too much about different things: 0 = Not at all Trouble relaxin = Not at all Being so restless that it is hard to sit still: 0 = Not at all Becoming easily annoyed or irritable: 0 = Not at all Feeling afraid as if something awful might happen: 0 = Not at all Total RANDEE-7 score (0-4 normal; 5-9 mild; 10-14 moderate; 15-21 severe): 0 Source: Developed by Drs. Shmuel Rucker, Krystal Dick, Jeromy Watt and colleagues, with an educational farida from [employer]. Review of Systems Const Denies chills, Denies difficulty sleeping, Reports fatigue, Denies fever(s) and Denies headache(s) Eyes Details: (+) mild swelling of the right upper eyelid - s/p glaucoma surgery about 6 days ago ENT Denies dysphagia, Reports dizziness ((+) near syncopal episode earlier this morning - see HPI), Denies otalgia, Denies headache(s), Denies neck pain, Denies odynophagia and Denies sore throat Card Denies chest pain, Reports syncope (near syncopal episode earlier this morning), Denies palpitations and Denies dyspnea Resp Denies chest congestion, Denies cough and Denies dyspnea GI Denies abdominal pain, Denies constipation, Denies dysphagia, Denies heartburn, Denies diarrhea, Denies nausea, Denies odynophagia and Denies vomiting Denies difficulty urinating, Denies dysuria and Denies nocturia Musc Denies back pain and Denies neck pain Neuro Reports dizziness ((+) near syncopal episode earlier this morning - see HPI), Reports syncope (near syncopal episode earlier this morning) and Denies headache(s) Endo Reports fatigue and Denies palpitations Physical exam (Primary Care) Vital Signs: Last Vital Signs Pulse 54 02/18/25 13:35 BP 110/64 02/18/25 13:35 Pulse Ox 99 02/18/25 13:35 Oxygen Delivery Method Room Air 02/18/25 13:35 BMI result Body Mass Index 26.2 Tobacco/Smoking Status: Tobacco use Status Tobacco use date assessed 02/18/25 02/18/25 13:42 Patient Tobacco Use Status Former Tobacco user 02/18/25 13:42 Tobacco use type Cigarette 02/18/25 13:42 e-Cigarette/Vaping Use Never Used 02/18/25 13:42 PHQ-9: PHQ-9 Score PHQ-9: Total score 15 02/18/25 13:42 Depression Screening Interpretation: Positive Depression Screening Follow-up: Existing condition and In treatment Thrive Assessment: Date of Thrive Assessment Date Thrive assessed 02/18/25 02/18/25 13:42 Currently or been in a relationship where the following occur: No concerns reported Const General: no acute distress and alert Eyes Other: (+) mild swelling and erythema of the right upper eyelid Neck Neck: Yes supple and No lymphadenopathy Thyroid: Thyroid normal Resp Auscultation: clear to auscultation bilaterally, no rales and no wheezes Cardio Rate: bradycardic Rhythm: regular rhythm Heart sounds: no murmurs GI Palpation (GI): Soft to palpation and nontender Auscultation: normal bowel sounds General: Yes no CVA tenderness Back/Spine/Pelvis Back: no CVA tenderness Thoracic/Lumbar Spine: No lumbar spinal tenderness Skin Rashes: no rashes Extrem General: Yes no clubbing, cyanosis or edema Coding Level of Care Code Est Pt Level 4 (00821) Diagnoses Fatigue, unspecified type R53.83 Fatigue type: unspecified Bradycardia R00.1 Near syncope R55 Additional Codes PHQ-9 - 18949 - PHQ-9 Billing: Yes ([id number]) Assessment & Plan Assessment & Plan (1) Fatigue: Code(s): R53.83 - Other fatigue Category: Medical Qualifiers: Fatigue type: unspecified Qualified Code(s): R53.83 - Other fatigue (2) Bradycardia: Code(s): R00.1 - Bradycardia, unspecified Category: Medical (3) Near syncope: Code(s): R55 - Syncope and collapse Category: Medical Plan Will send patient for some labs NIDHI for further evaluation - advised that he can go and get these done NIDHI Will also have him get a 12-lead EKG NIDHI (the EKG machine in the office is supposedly not working correctly recently) for further evaluation Will send him for echocardiogram as well and refer him to cardiology for further evaluation and recommendations of his bradycardia and near syncope earlier this morning Have advised patient and his mother that some of his current psychiatric medications (particularly Clonazepam, Amantadine and Clozapine) can cause bradycardia as well and his Clozapine is currently at a high dose of 200 mg Q HS - have advised patient's mother to try to discuss this further with patient's treating psychiatrist NIDHI to see if they can try to switch him over to some other alternative Rx that do not cause bradycardia, if possible Have also advised patient that for future reference, if he were to ever feel like he is going to pass out again, the best thing he can do at that time is to sit down or lie down flat on his back immediately anywhere in close proximity at the time where it is safe to do so and let his symptoms pass before he tries to get up again slowly Have advised patient and his mother that we will reach out to them with further instructions or recommendations once the results of all his tests are available, especially if any pertinent findings present themselves To return as scheduled in April 2025 for his annual physical examination with his PCP Orders: Orders Complete Blood Count Auto Diff Today R00.1 - Bradycardia, unspecified, R53.83 - Other fatigue, R55 - Syncope and collapse Comprehensive Met. Panel Today R00.1 - Bradycardia, unspecified, R53.83 - Other fatigue, R55 - Syncope and collapse UA CC w/rflx Micro + Cult Today R00.1 - Bradycardia, unspecified, R53.83 - Other fatigue, R55 - Syncope and collapse ECG 12 lead EKG Today R00.1 - Bradycardia, unspecified, R53.83 - Other fatigue, R55 - Syncope and collapse CA echo transthoracic complete Today R00.1 - Bradycardia, unspecified, R53.83 - Other fatigue, R55 - Syncope and collapse TSH reflex Free T4 Today R00.1 - Bradycardia, unspecified, R53.83 - Other fatigue, R55 - Syncope and collapse Referrals Cardiology Referral R00.1 - Bradycardia, unspecified, R55 - Syncope and collapse
--- OUTSIDE RECORDS SUMMARY | 2025-02-18 15:26 | XMS_ITS | Encounter Summary ---
Author Organization [facility] Address [address] [place] [phone] Phone Care Team Providers Care Traveling Buyer Name Role Phone Pcp, Not Required Primary Care Provider Unavaila ble Encounter Details Date Type Department Care Team ([facility] st Contact Info) Description 02/15/2025 Telephone [facility] [address] [facility] 1st [place] [address] Kelly Gabriel MD [address] [place] [id number] [email or web address] Social History Tobacco Use Types Packs/Day Years Used Date Smoking Tobacco: Former Cigarettes 1973 Smokeless Tobacco: Never Alcohol Use Standard [...] Progress Notes * Kelly Gabriel MD - 02/15/2025 11:06 AM EST Returned call to patient's brother Simone, to review post-op medication regimen again as noted below: -Pred q2h WA OD, Ofloxacin QID OD -Continue dorzolamide TID OU, brimonidine TID OU, timolol BID OU, latanoprost qhs OU, Rhopressa qHSOU -Continue Diamox 500 mg BID Patient/patient's brother had no other concerns/questions. All questions answered. Kelly Gabriel MD PGY-5, Glaucoma Fellow [facility] documented in this encounter Plan of Treatment Upcoming Encounters Date Type Department Care Team (Late st Contact Info) Description 02/24/2025 11:40 AM EST Office Visit [facility] Glaucoma [facility] [address] [address] Kristen Edward MD 243 [place] [address] [email or web address] Scheduled Procedures Name Priority Associated Diagnoses Date/Ti me INSERTION GLAUCOMA VALVE Primary open angle glaucoma (POAG) of both eyes, severe stage documented as of this encounter Visit Diagnoses Not on filedocumented in this encounter Care Teams Traveling Buyer Relationship Specialty Start Date End Date Pcp, Not Required [address] [place] [address] PCP - General 02/07/25 documented as of this encounter Additional Source Comments The information contained in this document represents components of the legal health record. It is not the complete legal health record.[facility]
--- OUTSIDE RECORDS SUMMARY | 2025-02-18 15:26 | XMS_ITS | Encounter Summary ---
Author Organization [facility] Address [address] [place] [phone] Phone Care Team Providers Care Plastics Fabricator Or Welder Name Role Phone Pcp, Not Required Primary Care Provider Unavaila ble Pcp, Not Required Primary Care Provider Unavaila ble Encounter Details Date Type Department Care Team ([facility] st Contact Info) Description 02/06/2025 Ophth Exam [facility] [address] [place] [address] Jeni Flores MD [address] [place] [address] [email or web address] Social History Tobacco Use Types Packs/Day Years Used Date Smoking Tobacco: Never Smokeless Tobacco: Never Alcohol Use Standard Drinks/Week [...] as food, clothing, or medical care? No 02/06/2025 In the past 12 months have y ou been in a relationship with a person who hurts, threatens, or tries to control you? No 02/06/2025 Are you denied basic needs s uch as food, clothing, or medical care? No 02/06/2025 In the past 12 months have y ou been in a relationship with a person who hurts, threatens, or tries to control you? No 02/06/2025 Sex and Gender Information Value Date Recorded Sex Assigned at Male 02/07/2025 6:28 AM EST Legal Sex Male 3:43 PM EST Gender Identity Male 02/07/2025 6:28 AM EST Sexual Orientation Straight 02/07/2025 6: 28 AM EST documented as of this encounter Functional Status * Calculated C-SSRS Risk Score (Lifetime/Recent) Answer Date of Assessment Author No Risk Indicated 02/06/2025 4:07 PM Cat Dawn, INDU * [place] Suicide Severity Rating Scale (Screener/Recent Self-Report) Question Answer Date of Assessment Author 1. Wish to be (Past 1 Month) No 025 4:07 PM Cat Dawn, INDU 2. Non-Specific Active Suici claudia Thoughts (Past 1 Month) No 02/06/2025 4:07 PM Cat Dawn, RN 6. Suicidal Behavior (Lifetime) No 4:07 PM Cat Dawn RN documented as of this encounter Plan of Treatment Upcoming Encounters Date Type Department Care Team (Late st Contact Info) Description 02/24/2025 11:40 AM EST Office Visit [facility]EL Glaucoma [facility] [address] [address] Kristen Edward MD 243 [place] [address] [email or web address] Scheduled Procedures Name Priority Associated Diagnoses Date/Ti me INSERTION GLAUCOMA VALVE Primary open angle glaucoma (POAG) of both eyes, severe stage documented as of this encounter Visit Diagnoses Not on filedocumented in this encounter Care Teams Plastics Fabricator Or Welder Relationship Specialty Start Date End Date Pcp, Not Required [address] [place] [address] PCP - General 02/07/25 Pcp, Not Required [address] [place] [address] PCP - General 02/06/25 02/06/25 documented as of this encounter Additional Source Comments The information contained in this document represents components of the legal health record. It is not the complete legal health record.[facility]
--- OUTSIDE RECORDS SUMMARY | 2025-02-18 15:26 | XMS_ITS | Encounter Summary ---
Author Organization [facility] Address [address] [place] [phone] Phone Care Team Providers Care Bell Ringer Name Role Phone Pcp, Not Required Primary Care Provider Unavaila ble Encounter Details Date Type Department Care Team ([facility] st Contact Info) Description 02/12/2025 Procedure Pass [facility]TH [place] PERIOP DEPT [address] [place] [address] Social History Tobacco Use Types Packs/Day Years Used Date Smoking Tobacco: Former Cigarettes 2 1973 Smokeless Tobacco: Never Alcohol Use Standard [...] AM EST documented as of this encounter Plan of Treatment Upcoming Encounters Date Type Department Care Team (Late st Contact Info) Description 02/24/2025 11:40 AM EST Office Visit [address] [address] Kristen Edward MD [address] [place], [place] [id number] [email or web address] Scheduled Procedures Name Priority Associated Diagnoses Date/Ti me INSERTION GLAUCOMA VALVE Primary open angle glaucoma (POAG) of both eyes, severe stage documented as of this encounter Visit Diagnoses Not on filedocumented in this encounter Care Teams Bell Ringer Relationship Specialty Start Date End Date Pcp, Not Required [address] [place] [address] PCP - General 02/07/25 documented as of this encounter Additional Source Comments The information contained in this document represents components of the legal health record. It is not the complete legal health record.[facility]
--- OUTSIDE RECORDS SUMMARY | 2025-02-18 15:26 | XMS_ITS | Encounter Summary ---
Author Organization [facility] Address [address] [facility] [address] [place] [phone] Phone Care Team Providers Care Geology Professor Name Role Phone Pcp, Not Required Primary Care Provider Unavaila ble Encounter Details Date Type Department Care Team ([facility] st Contact Info) Description 02/10/2025 Ophth Exam [facility] [address] [place] [address] Brigida Walsh MD [address] [place] [address] [email or web address] Social History Tobacco Use Types Packs/Day Years [...] Date of Assessment Author No Risk Indicated 02/10/2025 2:16 PM Cat Dawn, INDU * [place] Suicide Severity Rating Scale (Screener/Recent Self-Report) Question Answer Date of Assessment Author 1. Wish to be (Past 1 Month) No 025 2:16 PM Cat Dawn, INDU 2. Non-Specific Active Suici claudia Thoughts (Past 1 Month) No 02/10/2025 2:16 PM Cat Dawn, INDU 6. Suicidal Behavior (Lifetime) No 2:16 PM Cat Dawn, RN documented as of this encounter Plan of Treatment Upcoming Encounters Date Type Department Care Team (Late st Contact Info) Description 02/24/2025 11:40 AM EST Office Visit [facility] Glaucoma [facility] [address] [address] Kristen Edward MD [address] [place] [address] [email or web address] Scheduled Procedures Name Priority Associated Diagnoses Date/Ti me INSERTION GLAUCOMA VALVE Primary open angle glaucoma (POAG) of both eyes, severe stage documented as of this encounter Visit Diagnoses Not on filedocumented in this encounter Care Teams Geology Professor Relationship Specialty Start Date End Date Pcp, Not Required [address] [place] [address] PCP - General 02/07/25 documented as of this encounter Additional Source Comments The information contained in this document represents components of the legal health record. It is not the complete legal health record.[facility]
--- OUTSIDE RECORDS SUMMARY | 2025-02-18 15:27 | XMS_ITS | Clinical Summary ---
Author Organization [facility] Address [address] [address] Phone Care Team Providers Care Director Of Media Name Role Phone Pcp, Not Required Primary Care Provider Unavaila ble Allergies No known active allergies Medications amLODIPine (NORVASC) 10 MG tablet Take 10 mg by mouth daily. 5 Active clonazePAM (KLONOPIN) 0.5 MG tablet Take 0.5 mg by mouth 2 (two) times a day as needed for anxiety. 5 Active cloZAPine (CLOZARIL) 100 MG tablet Take 100 mg by mouth daily. 5 Active divalproex (DEPAKOTE ER) 500 MG ER 24 hr tablet Take 500 mg by mouth daily. 5 Active finasteride (PROSCAR) 5 mg tablet Take 5 mg by mouth daily. 5 Active tamsulosin (FLOMAX) 0.4 mg Cap Take 0.4 mg by mouth daily. 5 Active latanoprost (XALATAN) 0.005 % ophthalmic solution Place 1 drop into each eye daily. 5 Active LINZESS 145 mcg Cap Take 145 mcg by mouth daily before breakfast. 5 Active netarsudiL (RHOPRESSA) 0.02 % ophthalmic solution Place 1 drop into each eye nightly at bedtime. Dispose of bottle 6 weeks after opening. 2.5 mL 12 5 Active FLUPHENAZINE DECANOATE INJ Inject 37.5 mg as directed every 21 days. Active prednisoLONE acetate (PRED FORTE) 1 % ophthalmic suspension Place 1 drop into the right eye Every two hours. 10 mL 1 Active ofloxacin (OCUFLOX) 0.3 % ophthalmic solution Place 1 drop into the right eye 4 (four) times a day. 5 mL 1 Active acetaZOLAMIDE (DIAMOX) 250 MG tablet Take 250 mg by mouth 2 (two) times a day. 02/13/20 25 Discontinu ed(Stop Taking at Discharge) Active Problems Problem Noted Date Diagnosed Date Hypertension 02/12/2025 Psychiatric disorder 02/12/2025 Encounters Date Type Department Care Team Description 02/15/[address] [address] Kelly Gabriel MD 02/13/2025 9:30 AM EST Office Visit [address] [address] Kelly Gabriel MD Primary open angle glaucoma (POAG) of both eyes, severe stage (Primary Dx) 02/12/2025 5:59 PM EST Anesthesia Event [facility]PT [address] [place] [address] Miguel López MD, PhD Bernadette Musa MD 02/12/2025 5:40 PM EST - 02/12/2025 7:10 PM EST Surgery [facility]PT [address] [place] [address] Kristen Edward MD INSERTION GLAUCOMA VALVE 02/12/2025 3:37 PM EST - 02/12/2025 7:45 PM EST Hospital Encounter [facility]PT [address] [place] [address] Kristen Edward MD Discharge Disposition: Home or Self Care 02/12/2025 12:30 PM EST Office Visit [address] [address] Robert Casper MD Yeh, Yi-Hsien, MD, MS Cataract of both eyes (Primary Dx) 02/12/2025 Procedure Pass [facility]PT [address] [place] [phone] 02/12/2025 Prep for Surgery [facility] Glaucoma [address] [address] Matt Reyez MD, MS Primary open angle glaucoma (POAG) of both eyes, severe stage (Primary Dx) 02/12/2025 Prep for Surgery [facility] Glaucoma [address] [address] Matt Reyez MD, MS 02/10/2025 1:47 PM EST - 02/10/2025 4:59 PM EST Emergency [facility] Emergency Department [address] [place] [address] Discharge Disposition: Home or Self Care 02/10/2025 Ophth Exam [facility] Emergency Department [address] [place] [address] Brigida Walsh MD 02/06/2025 3:45 PM EST - 02/06/2025 7:37 PM EST Emergency [facility] Emergency Department [address] [place] [address] Inderjit Stuart MD, SHANNON Discharge Disposition: Home or Self Care 02/06/2025 Ophth Exam [facility] Emergency Department [address] [place] [phone] Jeni Flores MD from Last 3 Months Social History Tobacco Use Types Packs/Day Years [...] Orientation Straight 02/07/2025 6: 28 AM EST Last Filed Vital Signs Vital Sign Reading [...] Mass Index 25.83 02/12/2025 4:08 PM EST Plan of Treatment Upcoming Encounters Date Type Department Care Team (Late st Contact Info) Description 02/24/2025 11:40 AM EST Office Visit [facility] Glaucoma [facility] [address] [facility] 1st [place] [address] Kristen Edward MD [address] [place] [phone] [email or web address] Scheduled Procedures Name Priority Associated Diagnoses Date/Ti me INSERTION GLAUCOMA VALVE Primary open angle glaucoma (POAG) of both eyes, severe stage Health Maintenance Due Date Last Done Comments ABSOLUTE NEUTROPHIL COUNT (ANC) 1953 Adult Td,Tdap Booster 1953 BLOOD PRESSURE 1953 LIPID PANEL 1953 VALPROIC ACID (DEPAKENE) LEVEL 1953 DEPRESSION SCREENING 1965 HEPATITIS C SCREENING 10/19/1971 COLOGUARD 1998 COLONOSCOPY 1998 COLORECTAL CANCER SCREENING 1998 FIT TEST 1998 FOBT 1998 SIGMOIDOSCOPY 1998 VIRTUAL COLONOSCOPY 1998 PNEUMOCOCCAL VACCINES (50+ y ears) (1 of 1 - PCV) 10/19/2003 ZOSTER VACCINES (1 of 2) 10/19/2003 ABDOMINAL AORTIC ANEURYSM (A AA) SCREENING 2018 INFLUENZA VACCINE (#1) 2024 COVID-19 VACCINE ( - 2024-2 6 season) 2024 SMOKING Hx and SMOKELESS TOB ACCO SCREENING 02/12/2026 02/12/2025 RSV VACCINE (1 - 1-dose 75+ series) 2028 HEPATITIS A VACCINES Aged Out No long er eligible based on patient's age to complete this topic HIB VACCINES Aged Out No longer eligi ble based on patient's age to complete this topic MENINGOCOCCAL VACCINES (ACWY) Aged Out No longer eligible based on patient's age to complete this topic MENINGOCOCCAL VACCINES (B) Aged Out N o longer eligible based on patient's age to complete this topic Medical Devices Implanted Type Area Copyholder Device Identifier Shelf Expiration Date Model / Serial / Lot Graft Allograft 9mm Tanzgraft Spilt Thickness [employer]ley - [id number] Implanted:Qty: 1 on 02/12/2025 by Kristen Edward MD at [facility] Eye and Ear Right: Eye CORNEAGEN 01/21/2027 [id number] / / [id number] Tube Ophthalmological Device Drainage Ahmed Clearpath 250 - [id number] Implanted:Qty: 1 on 02/12/2025 by Kristen Edward MD at [facility] Eye and Ear Right: Eye NEW [employer] MEDICAL 09/07/2026 CP 250 / / [id number] Procedures Procedure Name Priority Date/Time Associated Diagnosis Comments [place] AQUEOUS SHUNT EXTRAOC EQUAT PLATE RSVR W/GRAFT 02/12/2025 5:57 PM EST severe open angled glaucoma OD PERIPHERAL BLOCK EYE Routine 02/12/2025 5:51 PM EST OCT, OPTIC NERVE - OU - BOTH EYES Routine 02/12/2025 1:17 PM EST Cataract of both eyes GALARZA VISUAL FIELD - OU - BOTH EYES Routine 02/12/2025 1:17 PM EST Cataract of both eyes BASIC METABOLIC PANEL (BMP) STAT 02/06/2025 5:24 PM EST from Last 3 Months Results * Eye Block (02/12/2025 5:51 PM EST) Narrative Bernadette Musa MD - 02/12/2025 5:51 PM EST Bernadette Musa MD 02/12/2025 5:52 PM EYE BLOCK PROCEDURE NOTE: Start time: 02/12/2025 5:51 PM Reason for Block: primary anesthetic Anesthesiologist: Bernadette Musa MD Performed: anesthesiologist Superior protocol checklist completed and placed in chart. [...] paresthesia on injection Complications: Complications observed: no Result [facility] Bernadette Musa MD [place] ANESTHESIA Final Resul t * OCT, Optic Nerve - OU - Both Eyes - Cirrus; RNFL, GCC (02/12/2025 1:17 PM EST) [facility] KRISTINA - 02/12/2025 1:46 PM EST Right Eye Quality: Good. Change: Baseline. Optic Disk: Large. Optic nerve head and nerve fiber layer: Abnormal superior, Abnormal inferior. Ganglion cell or retinal thickness: Diffuse thinning. Left Eye Quality: Good. Change: Baseline. Optic Disk: Large. Optic nerve head and nerve fiber layer: Abnormal inferior, Abnormal superior, Abnormal temporal. Ganglion cell or retinal thickness: Diffuse thinning. General Details Testing performed by: Merary. Result [facility] Matt Reyez MD, MS OPHTHALMOLOGY IMAGING Final Result Performing Organization Address [facility] de Phone Number HARMONY * Galarza Visual Field - OU - Both Eyes (02/12/2025 1:17 PM EST) [facility] MARY - 02/12/2025 1:44 PM EST Right Eye Pattern: 24-2. Strategy: DARIN - Standard. Reliability: Borderline. Change: Baseline. Foveal threshold: Reduced. Findings: Generalized depression. Left Eye Pattern: 24-2. Strategy: DARIN - Standard. Reliability: Good. Change: Baseline. Foveal threshold: Reduced. Findings: [place]. General Details Testing performed by: Merary. Fire Captain Marine Comments: Pt was falling asleep on OS. Result [facility] Matt Reyez MD, MS OPHTHALMOLOGY IMAGING Final Result Performing Organization Address [facility] de Phone Number HARMONY * (ABNORMAL) Basic Metabolic Panel (BMP) (02/06/2025 5:24 PM EST) Sodium 136 136 - 145 mmol/L 02/06/2025 6:22 PM EST [facility] Potassium 3.9 3.4 - 5.1 mmol/L 02/06/2025 6:22 PM EST [facility] Chloride 103 98 - 107 mmol/L 02/06/2025 6:22 PM EST [facility] CO2 22 20 - 31 mmol/L 02/06/2025 6:22 PM [facility] Anion Gap 11 3 - 17 mmol/L 02/06/2025 6:22 PM EST [facility] BUN 18 6 - 23 mg/dL 02/06/2025 6:22 PM EST [facility] Creatinine 1.18 0.60 - 1.30 mg/dL 02/06/2025 6:22 PM [facility] eGFR 66 >59 mL/min/1. 73m2 02/06/2025 6:22 PM [facility] Comment:Estimated glomerular filtration rate calculated using the CKD-EPI refit equation. Glucose 110(H) 70 - 99 mg/dL 02/06/2025 6:22 PM [facility] Calcium 10.0 8.5 - 10.5 mg/dL 02/06/2025 6:22 PM [facility] Blood (Blood) Venipuncture / Unknown 02/06/2025 5:24 PM EST 02/06/2025 5:43 PM EST us Inderjit Stuart MD, SHANNON LAB BLOOD BKR ORDERAB LES Final Result [facility] [address] [place] [address] from Last 3 Months Insurance [facility] [employer] MEDICARE REPLACEMENT [facility] MEDICARE [facility]PLACEMENT [facility] MEDICARE [facility]PLACEMENT [facility] MEDICARE REPLACEMENT [facility] MEDICARE REPLACEMENT [facility] MEDICARE REPLACEMENT Care Teams Director Of Media Relationship Specialty Start Date End Date Pcp, Not Required [address] [place] [phone] PCP - General 02/07/25 Additional Source Comments The information contained in this document represents components of the legal health record. It is not the complete legal health record.[facility]
--- OUTSIDE RECORDS SUMMARY | 2025-02-18 15:27 | XMS_ITS | Encounter Summary ---
Author Organization [facility] Address [address] [facility] [address] [place] [phone] Phone Care Team Providers Care Kitchen And Counter Worker Name Role Phone Pcp, Not Required Primary Care Provider Unavaila ble Encounter Details Date Type Department Care Team ([facility] st Contact Info) Description 02/12/2025 Prep for Surgery [facility] [address] [place] [address] Matt Reyez MD, MS [address] [place] [address] [email or web address] Social History Tobacco Use Types Packs/Day Years [...] 11:40 AM EST Office Visit [facility] [address] [facility] 1st [place] [address] Kristen Edward MD [address] [place] [phone] [email or web address] Scheduled Procedures Name Priority Associated Diagnoses Date/Ti me INSERTION GLAUCOMA VALVE Primary open angle glaucoma (POAG) of both eyes, severe stage documented as of this encounter Visit Diagnoses Not on filedocumented in this encounter Care Teams Kitchen And Counter Worker Relationship Specialty Start Date End Date Pcp, Not Required [address] [place] [phone] PCP - General 02/07/25 documented as of this encounter Additional Source Comments The information contained in this document represents components of the legal health record. It is not the complete legal health record.[facility]
== END 2025-02-18 14:10 | disposition home or self-care (01) ==
LOC: HO.HMCH 13:25
PROVIDERS: PCP Internal Medicine; Visit Provider Internal Medicine
DX: R53.83 Other fatigue (principal); R00.1 Bradycardia, unspecified; R55 Syncope and collapse

== ENCOUNTER 2025-02-18 13:24 | Outpatient (REF) | payer OTHER, SELFPAY ==
--- NOTE | 2025-02-18 14:50 | ECG_ITS ---
Test Reason : BRADYCARDIA Blood Pressure : */* mmHG Vent. Rate : 51 BPM Atrial Rate : 51 BPM P-R Int : 178 ms QRS Dur : 94 ms QT Int : 396 ms P-R-T Axes : 69 58 85 degrees QTcB Int : 364 ms Sinus bradycardia Incomplete right bundle branch block ST & T wave abnormality, consider lateral ischemia Abnormal ECG When compared with ECG of 20-Dec-2019 22:21, Vent. rate has decreased by 25 bpm Referred By: Anthony Bates Electronically Signed By: HERMINIA ARIAS
[2025-02-18 14:53] LABS: MANUAL DIFF FLAG NO
[2025-02-18 14:56] LABS: Hematocrit 45.9 % (42.0-52.0); Hemoglobin 14.6 g/dl (14.0-18.0); Imm Gran Abs Auto 0.04 X10*3/uL (0.00-0.03); Imm Gran Pct Auto 0.5 % (0.0-0.4); Lymphocytes Absolute Auto 1.6 X10*3/uL (1.2-4.9); Mean Corpuscular HGB Conc 31.8 g/dl (31.0-36.0); Mean Corpuscular Hemoglobin 29.6 pg (27.0-33.0); Mean Corpuscular Volume 92.9 fL (80.0-98.0); NRBC Abs Auto 0.000 X10*3/uL (0.0-0.012); NRBC Pct Auto 0.0 /100WBC (0.0-0.2); Platelet Count 175 X10*3/uL (160-400); Red Blood Count 4.94 X10*6/uL (4.60-5.80); White Blood Count 7.3 X10*3/uL (4.8-10.8)
[2025-02-18 15:17] LABS: Appearance Urine Clear; Glucose Urine UA Negative (Negative); PH 7.5 (5.0-9.0); Specific Gravity - Urine 1.010 (1.005-1.025)
[2025-02-18 15:47] LABS: Alanine Aminotransferase 35 U/L (0-40); Albumin Level 4.5 g/dL (3.5-5.0); Alkaline Phosphatase 112 U/L (39-117); Anion Gap 11 (12-20); Aspartate Amino Transferase 19 U/L (5-37); Blood Urea Nitrogen 23 mg/dL (9-16); Calcium 9.1 mg/dL (8.4-10.2); Carbon Dioxide 20 mmol/L (22-29); Chloride 111 mmol/L (96-108); Cholesterol 157 mg/dL (<200); Estimated Glomerular Filt Rate > 60; HDL Cholesterol 38 mg/dL (>40); Potassium 4.1 mmol/L (3.3-5.1); Sodium 138 mmol/L (135-145); Total Protein 7.6 g/dL (6.5-8.0); Triglycerides 212 mg/dL (<150)
== END 2025-02-18 13:25 | disposition home or self-care (01) ==
LOC: HO.LAB 13:24
PROVIDERS: Absent Provider Nurse Practitioner; PCP Internal Medicine; Visit Provider Internal Medicine
DX: R55 Syncope and collapse (principal); R53.83 Other fatigue; R00.1 Bradycardia, unspecified; Z13.31 Encounter for screening for depression; Z13.6 Encounter for screening for cardiovascular disorders; Z13.1 Encounter for screening for diabetes mellitus
CPT/HCPCS: 36415; 80053; 80061; 81003; 83036; 84443; 85025; 93005; 96127; 99212

== ENCOUNTER → 2025-02-18 14:50 | Outpatient (BNV) | payer OTHER, SELFPAY | PROVIDERS: Absent Provider Nurse Practitioner; PCP Internal Medicine; Visit Provider Internal Medicine | DX: R00.1 Bradycardia, unspecified (principal); I45.10 Unspecified right bundle-branch block | CPT/HCPCS: 93010 ==